=== PATIENT | male | born 1970 | race African-American/Black ===

== ENCOUNTER 2022-01-30 13:50 | Observation (INO) | payer SELFPAY ==
--- OUTSIDE RECORDS SUMMARY | 2022-01-30 13:56 | XMS REPORT | Continuity of Care Document ---
:1970 Author Organization [facility] t Address [address] [place] [address] Care Team Providers Name Role Phone Perez Zavaleta Primary Care Physician [phone] ALEX GARCIA Attending Clinician Unavailable SAAD HOU Admitting Clinician Unavailable Problems This patient has no known problems. Allergies, Adverse Reactions, Alerts This patient has no known allergies or adverse reactions. Medications Ordered Filled Start Stop Current Ordering Indication Dosage Frequency Signature Comments Components Source Medication Medication Date Date Medication? Clinician (SIG) Name Name TAKE 1 2021-0 No 100 TABLET 8-04 DAILY. 00:00: 00 TAKE 1 2021-0 No 10 TABLET 8-04 DAILY 1 00:00: HOUR BEFORE 00 NEEDED TAKE 1 2021-0 No 1000 TABLET 8-04 EVERY 12 00:00: HOURS 00 DAILY. TAKE 1 2021-0 No 10 TABLET 8-04 DAILY. 00:00: 00 folic acid 2-0 No 1mg 1 mg tablet 7-20 00:00: 00 hydrochloro 2-0 No 1mg thiazide 7-20 12.5 mg 00:00: tablet 00 losartan 2022-0 No 1mg 100 mg 7-20 tablet 00:00: 00 amlodipine 2022-0 No 1mg 10 mg 7-20 tablet 00:00: 00 metformin 2-0 No 1mg 1,000 mg 7-20 tablet 00:00: 00 glimepiride 2-0 No 1mg 4 mg tablet 7-20 00:00: 00 metoprolol 2-0 No 1mg tartrate 50 7-20 mg tablet 00:00: 00 sulfamethox 2-0 No 1mg azole 800 7-20 mg-trimetho 00:00: prim 160 mg 00 tablet levothyroxi 2022-0 No 1mcg ne 150 mcg 7-20 tablet 00:00: 00 amlodipine 2022-0 No 1mg 10 mg 3-01 tablet 00:00: 00 losartan 2022-0 No 1mg 100 mg 3-01 tablet 00:00: 00 hydrochloro 2022-0 No 1mg thiazide 3-01 12.5 mg 00:00: tablet 00 folic acid 2022-0 No 1mg 1 mg tablet 3- 00:00: 00 metoprolol 2022-0 No 1mg tartrate 50 3-01 mg tablet 00:00: 00 glimepiride 2022-0 No 1mg 4 mg tablet 3- 00:00: 00 metformin 2022-0 No 1mg 1,000 mg 3-01 tablet 00:00: 00 levothyroxi 2022-0 No 1mcg ne 150 mcg 3-01 tablet 00:00: 00 amlodipine 2022-0 No 1mg 10 mg 3-01 tablet 00:00: 00 losartan 2022-0 No 1mg 100 mg 3-01 tablet 00:00: 00 hydrochloro 2022-0 No 1mg thiazide 3-01 12.5 mg 00:00: tablet 00 folic acid 2022-0 No 1mg 1 mg tablet 3- 00:00: 00 metoprolol 2022-0 No 1mg tartrate 50 3-01 mg tablet 00:00: 00 glimepiride 2022-0 No 1mg 4 mg tablet 3- 00:00: 00 metformin 2022-0 No 1mg 1,000 mg 3-01 tablet 00:00: 00 levothyroxi 2022-0 No 1mcg ne 150 mcg 3-01 tablet 00:00: 00 Dose 2019-1 No Unknown 2-01 00:00: 00 Dose 2019-1 No Unknown 2-01 00:00: 00 Dose 2019-1 No Unknown 2-01 00:00: 00 Dose 2019-1 No Unknown 2-01 00:00: 00 Dose 2019- No Unknown 2-01 00:00: 00 Dose 2019- No Unknown 2-01 00:00: 00 Dose 2019- No Unknown 2-01 00:00: 00 Dose 2019- No Unknown 2-01 00:00: 00 Dose 2019- No Unknown 2-01 00:00: 00 Dose 2020-1 No Unknown 2-01 00:00: 00 Dose 2020-1 No Unknown 2- 00:00: 00 Dose 2020-1 No Unknown 2- 00:00: 00 Dose 2019-1 No Unknown 2- 00:00: 00 Dose 2020-1 No Unknown 2- 00:00: 00 Dose 2020-1 No Unknown 2- 00:00: 00 Dose 2020-1 No Unknown 2- 00:00: 00 losartan 2019-1 No 1mg 100 mg 0-01 tablet 00:00: 00 hydrochloro 2019-1 No 1mg thiazide 0-01 12.5 mg 00:00: tablet 00 amlodipine 2019-1 No 1mg 5 mg tablet 0-01 00:00: 00 folic acid 2019-1 No 1mg 1 mg tablet 0-01 00:00: 00 glimepiride 2019-1 No 1mg 4 mg tablet 0- 00:00: 00 metoprolol 2019-1 No 1mg tartrate 50 0-01 mg tablet 00:00: 00 metformin 2019-1 No 1mg 1,000 mg 0-01 tablet 00:00: 00 levothyroxi 2019-1 No 1mcg ne 150 mcg 0-01 tablet 00:00: 00 losartan 2019-1 No 1mg 100 mg 0-01 tablet 00:00: 00 hydrochloro 2019-1 No 1mg thiazide 0-01 12.5 mg 00:00: tablet 00 amlodipine 2019-1 No 1mg 5 mg tablet 0- 00:00: 00 folic acid 2019-1 No 1mg 1 mg tablet 0- 00:00: 00 glimepiride 2019-1 No 1mg 4 mg tablet 0- 00:00: 00 metoprolol 2019-1 No 1mg tartrate 50 0-01 mg tablet 00:00: 00 metformin 2019-1 No 1mg 1,000 mg 0-01 tablet 00:00: 00 levothyroxi 2020-1 No 1mcg ne 150 mcg 0-01 tablet 00:00: 00 glimepiride 2020-0 No 1mg 4 mg tablet 11-30 00:00: 00 levothyroxi 2020-0 No 1mcg ne 150 mcg 6-25 tablet 00:00: 00 glimepiride 2020-0 No 1mg 4 mg tablet 11-30 00:00: 00 levothyroxi 2020-0 No 1mcg ne 150 mcg 6-25 tablet 00:00: 00 levothyroxi 2020-0 No 1mcg ne 125 mcg 6-23 tablet 00:00: 00 amlodipine 2020-0 No 1mg 5 mg tablet 11-28 00:00: 00 folic acid 2020-0 No 1mg 1 mg tablet 11-28 00:00: 00 losartan 2020-0 No 1mg 100 mg 6-23 tablet 00:00: 00 hydrochloro 2020-0 No 1mg thiazide 6-23 12.5 mg 00:00: tablet 00 amlodipine 2020-0 No 1mg 5 mg tablet 11-28 00:00: 00 folic acid 2020-0 No 1mg 1 mg tablet 11-28 00:00: 00 losartan 2020-0 No 1mg 100 mg 6-23 tablet 00:00: 00 hydrochloro 2020-0 No 1mg thiazide 6-23 12.5 mg 00:00: tablet 00 metoprolol 2020-0 No 1mg tartrate 50 6-23 mg tablet 00:00: 00 glimepiride 2020-0 No 1mg 1 mg tablet 11-28 00:00: 00 metformin 2020-0 No 1mg 1,000 mg 6-23 tablet 00:00: 00 glimepiride 2020-0 No 1mg 1 mg tablet 11-28 00:00: 00 metformin 2020-0 No 1mg 1,000 mg -23 tablet 00:00: 00 metoprolol 2020-0 No 1mg tartrate 50 6-23 mg tablet 00:00: 00 levothyroxi 2020-0 No 1mcg ne 125 mcg 6-23 tablet 00:00: 00 levothyroxi 2020-0 No 1mcg ne 125 mcg 6-23 tablet 00:00: 00 amlodipine 2020-0 No 1mg 5 mg tablet 11-28 00:00: 00 folic acid 2020-0 No 1mg 1 mg tablet 11-28 00:00: 00 losartan 2020-0 No 1mg 100 mg 6-23 tablet 00:00: 00 hydrochloro 2020-0 No 1mg thiazide 6-23 12.5 mg 00:00: tablet 00 amlodipine 2020-0 No 1mg 5 mg tablet 11-28 00:00: 00 folic acid 2020-0 No 1mg 1 mg tablet 11-28 00:00: 00 losartan 2020-0 No 1mg 100 mg 6-23 tablet 00:00: 00 hydrochloro 2020-0 No 1mg thiazide 6-23 12.5 mg 00:00: tablet 00 metoprolol 2020-0 No 1mg tartrate 50 6-23 mg tablet 00:00: 00 glimepiride 2020-0 No 1mg 1 mg tablet 6-23 00:00: 00 metformin 2020-0 No 1mg 1,000 mg 6-23 tablet 00:00: 00 glimepiride 2020-0 No 1mg 1 mg tablet 6-23 00:00: 00 metformin 2020-0 No 1mg 1,000 mg 6-23 tablet 00:00: 00 metoprolol 2020-0 No 1mg tartrate 50 6-23 mg tablet 00:00: 00 levothyroxi 2020-0 No 1mcg ne 125 mcg 6-23 tablet 00:00: 00 amlodipine 2020-0 No 1mg 5 mg tablet 2-18 00:00: 00 folic acid 2020-0 No 1mg 1 mg tablet 2-18 00:00: 00 losartan 2020-0 No 1mg 100 mg 2-18 tablet 00:00: 00 hydrochloro 2020-0 No 1mg thiazide 2-18 12.5 mg 00:00: tablet 00 pioglitazon 2020-0 No 1mg e 30 mg 2-18 tablet 00:00: 00 sulfamethox 2020-0 No 1mg azole 800 2-18 mg-trimetho 00:00: prim 160 mg 00 tablet metoprolol 2020-0 No 1mg tartrate 50 2-18 mg tablet 00:00: 00 metformin 2020-0 No 2mg ER 500 mg 2-18 tablet,exte 00:00: nded 00 release 24 hr glimepiride 2020-0 No 1mg 1 mg tablet 2-18 00:00: 00 levothyroxi 2020-0 No 1mcg ne 125 mcg 2-18 tablet 00:00: 00 amlodipine 2020-0 No 1mg 5 mg tablet 2-18 00:00: 00 folic acid 2020-0 No 1mg 1 mg tablet 2-18 00:00: 00 losartan 2020-0 No 1mg 100 mg 2-18 tablet 00:00: 00 hydrochloro 2020-0 No 1mg thiazide 2-18 12.5 mg 00:00: tablet 00 pioglitazon 2020-0 No 1mg e 30 mg 2-18 tablet 00:00: 00 sulfamethox 2020-0 No 1mg azole 800 2-18 mg-trimetho 00:00: prim 160 mg 00 tablet metoprolol 2020-0 No 1mg tartrate 50 2-18 mg tablet 00:00: 00 metformin 2020-0 No 2mg ER 500 mg 2-18 tablet,exte 00:00: nded 00 release 24 hr glimepiride 2019-0 No 1mg 1 mg tablet 2-18 00:00: 00 levothyroxi 2019-0 No 1mcg ne 125 mcg 2-18 tablet 00:00: 00 hydrochloro 2018-1 No 1mg thiazide 2-17 12.5 mg 00:00: tablet 00 pioglitazon 2018-1 No 1mg e 30 mg 2-17 tablet 00:00: 00 folic acid 2018-1 No 1mg 1 mg tablet 2-17 00:00: 00 losartan 2018-1 No 1mg 100 mg 2-17 tablet 00:00: 00 amlodipine 2018-1 No 1mg 5 mg tablet 2-17 00:00: 00 glimepiride 2018-1 No 1mg 1 mg tablet 2-17 00:00: 00 metformin 2018-1 No 2mg ER 500 mg 2-17 tablet,exte 00:00: nded 00 release 24 hr metoprolol 2018-1 No 1mg tartrate 50 2-17 mg tablet 00:00: 00 levothyroxi 2018-1 No 1mcg ne 125 mcg 2-17 tablet 00:00: 00 hydrochloro 2018-1 No 1mg thiazide 2-17 12.5 mg 00:00: tablet 00 pioglitazon 2018-1 No 1mg e 30 mg 2-17 tablet 00:00: 00 folic acid 2018-1 No 1mg 1 mg tablet 2-17 00:00: 00 losartan 2018-1 No 1mg 100 mg 2-17 tablet 00:00: 00 amlodipine 2018-1 No 1mg 5 mg tablet 2-17 00:00: 00 glimepiride 2018-1 No 1mg 1 mg tablet 2-17 00:00: 00 metformin 2018-1 No 2mg ER 500 mg 2-17 tablet,exte 00:00: nded 00 release 24 hr metoprolol 2018-1 No 1mg tartrate 50 2-17 mg tablet 00:00: 00 levothyroxi 2018-06 No 1mcg ne 125 mcg 2-17 tablet 00:00: 00 amlodipine 2018- No 1mg 5 mg tablet 029 00:00: 00 folic acid 2018- No 1mg 1 mg tablet 0 00:00: 00 hydrochloro 2018-1 No 1mg thiazide 0-29 12.5 mg 00:00: tablet 00 metoprolol 2018-06 No 1mg tartrate 50 0-29 mg tablet 00:00: 00 metformin 2018- No 2mg ER 500 mg 0-29 tablet,exte 00:00: nded 00 release 24 hr glimepiride 2018- No 1mg 1 mg tablet 0 00:00: 00 levothyroxi 2018-06 No 1mcg ne 125 mcg 0-29 tablet 00:00: 00 amlodipine 2018- No 1mg 5 mg tablet 0 00:00: 00 folic acid 2018- No 1mg 1 mg tablet 0 00:00: 00 hydrochloro 2018- No 1mg thiazide 0-29 12.5 mg 00:00: tablet 00 metoprolol 2018-06 No 1mg tartrate 50 0-29 mg tablet 00:00: 00 metformin 2018- No 2mg ER 500 mg 0-29 tablet,exte 00:00: nded 00 release 24 hr glimepiride 2018- No 1mg 1 mg tablet 0 00:00: 00 levothyroxi 2018- No 1mcg ne 125 mcg 0-29 tablet 00:00: 00 hydrochloro 2019-0 No 1mg thiazide 8-07 12.5 mg 00:00: tablet 00 folic acid 2018-0 No 1mg 1 mg tablet 8 00:00: 00 glimepiride 2019-0 No 1mg 1 mg tablet 8 00:00: 00 metformin 2019-0 No 2mg ER 500 mg 8 tablet,exte 00:00: nded 00 release 24 hr metoprolol 2019-0 No 1mg tartrate 50 8-07 mg tablet 00:00: 00 Levitra 10 2019-0 No mg mg tablet 8 00:00: 00 levothyroxi 2019-0 No 1mcg ne 125 mcg 8-07 tablet 00:00: 00 hydrochloro 2019-0 No 1mg thiazide 8-07 12.5 mg 00:00: tablet 00 folic acid 2019-0 No 1mg 1 mg tablet 8 00:00: 00 glimepiride 2019-0 No 1mg 1 mg tablet 8 00:00: 00 metformin 2019-0 No 2mg ER 500 mg 8- tablet,exte 00:00: nded 00 release 24 hr metoprolol 2019-0 No 1mg tartrate 50 8-07 mg tablet 00:00: 00 Levitra 10 2019-0 No mg mg tablet 8 00:00: 00 levothyroxi 2019-0 No 1mcg ne 125 mcg 8-07 tablet 00:00: 00 hydrochloro 2019-0 No 1mg thiazide 7-05 12.5 mg 00:00: tablet 00 folic acid 2019-0 No 1mg 1 mg tablet 7 00:00: 00 metoprolol 2019-0 No 1mg tartrate 50 7-05 mg tablet 00:00: 00 glimepiride 2019-0 No 1mg 1 mg tablet 7 00:00: 00 metformin 2019-0 No 2mg ER 500 mg 7-05 tablet,exte 00:00: nded 00 release 24 hr levothyroxi 2019-0 No 1mcg ne 125 mcg 7-05 tablet 00:00: 00 hydrochloro 2019-0 No 1mg thiazide 7-05 12.5 mg 00:00: tablet 00 folic acid 2019-0 No 1mg 1 mg tablet 7 00:00: 00 metoprolol 2019-0 No 1mg tartrate 50 7-05 mg tablet 00:00: 00 glimepiride 2019-0 No 1mg 1 mg tablet 7 00:00: 00 metformin 2019-0 No 2mg ER 500 mg 7-05 tablet,exte 00:00: nded 00 release 24 hr levothyroxi 2019-0 No 1mcg ne 125 mcg 7-05 tablet 00:00: 00 hydrochloro 2019-0 No 1mg thiazide 7-03 12.5 mg 00:00: tablet 00 folic acid 2019-0 No 1mg 1 mg tablet 7 00:00: 00 metoprolol 2019-0 No 1mg tartrate 50 7-03 mg tablet 00:00: 00 glimepiride 2019-0 No 1mg 1 mg tablet 7 00:00: 00 metformin 2019-0 No 2mg ER 500 mg 7- tablet,exte 00:00: nded 00 release 24 hr Levitra 10 2019-0 No mg mg tablet 12-08 00:00: 00 levothyroxi 2019-0 No 1mcg ne 125 mcg 7- tablet 00:00: 00 hydrochloro 2019-0 No 1mg thiazide 7-03 12.5 mg 00:00: tablet 00 folic acid 2019-0 No 1mg 1 mg tablet 12-08 00:00: 00 metoprolol 2019-0 No 1mg tartrate 50 7-03 mg tablet 00:00: 00 glimepiride 2019-0 No 1mg 1 mg tablet 12-08 00:00: 00 metformin 2019-0 No 2mg ER 500 mg 12-08 tablet,exte 00:00: nded 00 release 24 hr Levitra 10 2019-0 No mg mg tablet 12-08 00:00: 00 levothyroxi 2019-0 No 1mcg ne 125 mcg 7- tablet 00:00: 00 hydrochloro 2019-0 No 1mg thiazide 5-22 12.5 mg 00:00: tablet 00 folic acid 2019-0 No 1mg 1 mg tablet 10-27 00:00: 00 glimepiride 2019-0 No 1mg 1 mg tablet 10-27 00:00: 00 metoprolol 2019-0 No 1mg tartrate 50 5-22 mg tablet 00:00: 00 levothyroxi 2019-0 No 1mcg ne 125 mcg 5-22 tablet 00:00: 00 hydrochloro 2019-0 No 1mg thiazide 5-22 12.5 mg 00:00: tablet 00 folic acid 2019-0 No 1mg 1 mg tablet 10-27 00:00: 00 glimepiride 2019-0 No 1mg 1 mg tablet 10-27 00:00: 00 metoprolol 2019-0 No 1mg tartrate 50 5-22 mg tablet 00:00: 00 levothyroxi 2019-0 No 1mcg ne 125 mcg 5-22 tablet 00:00: 00 hydrochloro 2019-0 No 1mg thiazide 5-08 12.5 mg 00:00: tablet 00 folic acid 2019-0 No 1mg 1 mg tablet 508 00:00: 00 hydrochloro 2019-0 No 1mg thiazide 5-08 12.5 mg 00:00: tablet 00 folic acid 2019-0 No 1mg 1 mg tablet 5-08 00:00: 00 metformin 2019-0 No 2mg ER 500 mg 5-08 tablet,exte 00:00: nded 00 release 24 hr glimepiride 2019-0 No 1mg 1 mg tablet 5-08 00:00: 00 metoprolol 2019-0 No 1mg tartrate 50 5-08 mg tablet 00:00: 00 levothyroxi 2019-0 No 1mcg ne 125 mcg 5-08 tablet 00:00: 00 metformin 2019-0 No 2mg ER 500 mg 5-08 tablet,exte 00:00: nded 00 release 24 hr glimepiride 2019-0 No 1mg 1 mg tablet 508 00:00: 00 metoprolol 2019-0 No 1mg tartrate 50 5-08 mg tablet 00:00: 00 levothyroxi 2019-0 No 1mcg ne 125 mcg 5-08 tablet 00:00: 00 levothyroxi 2019-0 No 1mcg ne 125 mcg 3-28 tablet 00:00: 00 levothyroxi 2019-0 No 1mcg ne 125 mcg 3-28 tablet 00:00: 00 hydrochloro 2019-0 No 1mg thiazide 3-27 12.5 mg 00:00: tablet 00 folic acid 2019-0 No 1mg 1 mg tablet 3-27 00:00: 00 metformin 2019-0 No 2mg ER 500 mg 3-27 tablet,exte 00:00: nded 00 release 24 hr glimepiride 2019-0 No 1mg 1 mg tablet 3-27 00:00: 00 metoprolol 2019-0 No 1mg tartrate 50 3-27 mg tablet 00:00: 00 hydrochloro 2019-0 No 1mg thiazide 3-27 12.5 mg 00:00: tablet 00 folic acid 2019-0 No 1mg 1 mg tablet 3-27 00:00: 00 metformin 2019-0 No 2mg ER 500 mg 3-27 tablet,exte 00:00: nded 00 release 24 hr glimepiride 2019-0 No 1mg 1 mg tablet 3-27 00:00: 00 metoprolol 2019-0 No 1mg tartrate 50 3-27 mg tablet 00:00: 00 metformin 2019-0 No 2mg ER 500 mg 1-16 tablet,exte 00:00: nded 00 release 24 hr metformin 2019-0 No 2mg ER 500 mg 1-16 tablet,exte 00:00: nded 00 release 24 hr metformin 2019-0 No 3mg ER 500 mg 1-03 tablet,exte 00:00: nded 00 release 24 hr metformin 2019-0 No 3mg ER 500 mg 1-03 tablet,exte 00:00: nded 00 release 24 hr hydrochloro 2018-1 No 5mg thiazide 25 2-27 mg tablet 00:00: 00 folic acid 2018-1 No 1mg 1 mg tablet 2-27 00:00: 00 metoprolol 2018-1 No 1mg tartrate 50 2-27 mg tablet 00:00: 00 metformin 2018-1 No 1mg ER 500 mg 2-27 tablet,exte 00:00: nded 00 release 24 hr hydrochloro 2018-1 No 5mg thiazide 25 2-27 mg tablet 00:00: 00 folic acid 2018-1 No 1mg 1 mg tablet 2-27 00:00: 00 metoprolol 2018-1 No 1mg tartrate 50 2-27 mg tablet 00:00: 00 metformin 2018-1 No 1mg ER 500 mg 2-27 tablet,exte 00:00: nded 00 release 24 hr hydrochloro 2018-0 No 5mg thiazide 25 7-18 mg tablet 00:00: 00 hydrochloro 2018-0 No 5mg thiazide 25 7-18 mg tablet 00:00: 00 folic acid 2018-0 No 1mg 1 mg tablet 7-16 00:00: 00 metoprolol 2018-0 No 1mg tartrate 50 7-16 mg tablet 00:00: 00 metformin 2018-0 No 1mg ER 500 mg 7-16 tablet,exte 00:00: nded 00 release 24 hr folic acid 2018-0 No 1mg 1 mg tablet 7-16 00:00: 00 metoprolol 2018-0 No 1mg tartrate 50 7-16 mg tablet 00:00: 00 metformin 2018-0 No 1mg ER 500 mg 7-16 tablet,exte 00:00: nded 00 release 24 hr amlodipine 2018-0 No 1mg 10 mg 7-13 tablet 00:00: 00 amlodipine 2018-0 No 1mg 10 mg 7-13 tablet 00:00: 00 metformin 2018-0 No 1mg ER 500 mg 6-11 tablet,exte 00:00: nded 00 release 24 hr folic acid 2018-0 No 1mg 1 mg tablet 6-11 00:00: 00 lisinopril 2018-0 No 1mg 5 mg tablet 6-11 00:00: 00 metoprolol 2018-0 No 1mg tartrate 50 6-11 mg tablet 00:00: 00 metformin 2018-0 No 1mg ER 500 mg 6-11 tablet,exte 00:00: nded 00 release 24 hr folic acid 2018-0 No 1mg 1 mg tablet 6-11 00:00: 00 lisinopril 2018-0 No 1mg 5 mg tablet 6-11 00:00: 00 metoprolol 2018-0 No 1mg tartrate 50 6-11 mg tablet 00:00: 00 metformin 2018-0 No 1mg ER 500 mg 5-10 tablet,exte 00:00: nded 00 release 24 hr metformin 2018-0 No 1mg ER 500 mg 5-10 tablet,exte 00:00: nded 00 release 24 hr lisinopril 2018-0 No 1mg 5 mg tablet 5-03 00:00: 00 folic acid 2018-0 No 1mg 1 mg tablet 5-03 00:00: 00 metoprolol 2018-0 No 1mg tartrate 50 5-03 mg tablet 00:00: 00 lisinopril 2018-0 No 1mg 5 mg tablet 5-03 00:00: 00 folic acid 2018-0 No 1mg 1 mg tablet 5-03 00:00: 00 metoprolol 2018-0 No 1mg tartrate 50 5-03 mg tablet 00:00: 00 Vital Signs Vital Name Observation Time Observation Value Comments Source BP Systolic 2022-01-08 10:51:00 155 mm[Hg] BP Diastolic 2022-01-08 10:51:00 90 mm[Hg] Weight Measured 2022-01-08 10:51:00 205.00 pounds Height Measured 2022-01-08 10:51:00 71.00 inches Body Temperature 2022-01-08 10:51:00 98.20 degrees Heart Rate 2022-01-08 10:51:00 78.00 /min Respiratory Rate 2022-01-08 10:51:00 17.00 /min BP Systolic 2021-12-25 11:03:00 200 mm[Hg] BP Diastolic 2021-12-25 11:03:00 117 mm[Hg] Weight Measured 2021-12-25 11:03:00 205.20 pounds Height Measured 2021-12-25 11:03:00 71.00 inches Body Temperature 2021-12-25 11:03:00 98.40 degrees Heart Rate 2021-12-25 11:03:00 95.00 /min Respiratory Rate 2021-12-25 11:03:00 17.00 /min BP Systolic 2021-08-21 09:51:00 149 mm[Hg] BP Diastolic 2021-08-21 09:51:00 91 mm[Hg] Weight Measured 2021-08-21 09:51:00 218.80 pounds Height Measured 2021-08-21 09:51:00 71.00 inches Body Temperature 2021-08-21 09:51:00 98.30 degrees Heart Rate 2021-08-21 09:51:00 75.00 /min Respiratory Rate 2021-08-21 09:51:00 16.00 /min BP Systolic 2021-08-06 11:29:00 224 mm[Hg] BP Diastolic 2021-08-06 11:29:00 133 mm[Hg] Weight Measured 2021-08-06 11:29:00 219.60 pounds Height Measured 2021-08-06 11:29:00 71.00 inches Body Temperature 2021-08-06 11:29:00 98.80 degrees Heart Rate 2021-08-06 11:29:00 109.00 /min Respiratory Rate 2021-08-06 11:29:00 16.00 /min BP Systolic 2020-05-08 08:14:00 151 mm[Hg] BP Diastolic 2020-05-08 08:14:00 96 mm[Hg] Weight Measured 2020-05-08 08:14:00 254.40 pounds Height Measured 2020-05-08 08:14:00 71.00 inches Body Temperature 2020-05-08 08:14:00 99.00 degrees Heart Rate 2020-05-08 08:14:00 80.00 /min Respiratory Rate 2020-05-08 08:14:00 16.00 /min BP Systolic 2019-11-29 08:17:00 172 mm[Hg] BP Diastolic 2019-11-29 08:17:00 113 mm[Hg] Weight Measured 2019-11-29 08:17:00 257.60 pounds Height Measured 2019-11-29 08:17:00 71.00 inches Body Temperature 2019-11-29 08:17:00 97.80 degrees Heart Rate 2019-11-29 08:17:00 64.00 /min Respiratory Rate 2019-11-29 08:17:00 BP Systolic 2019-07-26 11:14:00 BP Diastolic 2019-07-26 11:14:00 Weight Measured 2019-07-26 11:14:00 Height Measured 2019-07-26 11:14:00 Body Temperature 2019-07-26 11:14:00 Heart Rate 2019-07-26 11:14:00 63.00 /min Respiratory Rate 2019-07-26 11:14:00 BP Systolic 2019-07-26 11:02:00 158 mm[Hg] BP Diastolic 2019-07-26 11:02:00 103 mm[Hg] Weight Measured 2019-07-26 11:02:00 250.60 pounds Height Measured 2019-07-26 11:02:00 71.00 inches Body Temperature 2019-07-26 11:02:00 98.10 degrees Heart Rate 2019-07-26 11:02:00 63.00 /min Respiratory Rate 2019-07-26 11:02:00 16.00 /min BP Systolic 2019-04-05 10:15:00 144 mm[Hg] BP Diastolic 2019-04-05 10:15:00 91 mm[Hg] Weight Measured 2019-04-05 10:15:00 251.80 pounds Height Measured 2019-04-05 10:15:00 71.00 inches Body Temperature 2019-04-05 10:15:00 98.50 degrees Heart Rate 2019-04-05 10:15:00 65.00 /min Respiratory Rate 2019-04-05 10:15:00 16.00 /min BP Systolic 2019-01-12 09:01:00 146 mm[Hg] BP Diastolic 2019-01-12 09:01:00 91 mm[Hg] Weight Measured 2019-01-12 09:01:00 245.60 pounds Height Measured 2019-01-12 09:01:00 71.00 inches Body Temperature 2019-01-12 09:01:00 98.20 degrees Heart Rate 2019-01-12 09:01:00 70.00 /min Respiratory Rate 2019-01-12 09:01:00 BP Systolic 2018-12-08 10:02:00 130 mm[Hg] BP Diastolic 2018-12-08 10:02:00 90 mm[Hg] Weight Measured 2018-12-08 10:02:00 240.40 pounds Height Measured 2018-12-08 10:02:00 71.00 inches Body Temperature 2018-12-08 10:02:00 98.20 degrees Heart Rate 2018-12-08 10:02:00 69.00 /min Respiratory Rate 2018-12-08 10:02:00 18.00 /min Procedures This patient has no known procedures. Plan of Care Planned Activity Planned Date Details Comments Source Goal Plan of Care Note [code = 43381-9] Goal Plan of Care Note [code = 03728-6] Goal Plan of Care Note [code = 39283-6] Goal Plan of Care Note [code = 47548-0] Goal Plan of Care Note [code = 70573-9] Goal Plan of Care Note [code = 42517-8] Goal Plan of Care Note [code = 04550-6] Goal Plan of Care Note [code = 90301-3] Goal Plan of Care Note [code = 53351-1] Goal Plan of Care Note [code = 30323-3] Goal Plan of Care Note [code = 68848-4] Goal Plan of Care Note [code = 54475-9] Goal Plan of Care Note [code = 21507-6] Goal Plan of Care Note [code = 30010-7] Goal Plan of Care Note [code = 31037-4] Goal Plan of Care Note [code = 90958-9] Goal Plan of Care Note [code = 46488-5] Goal Plan of Care Note [code = 82170-5] Goal Plan of Care Note [code = 39575-9] Goal Plan of Care Note [code = 62523-5] Goal Plan of Care Note [code = 69470-3] Goal Plan of Care Note [code = 81322-4] Goal Plan of Care Note [code = 60908-6] Goal Plan of Care Note [code = 90384-3] Goal Plan of Care Note [code = 44154-1] Goal Plan of Care Note [code = 56901-2] Goal Plan of Care Note [code = 49788-6] Goal Plan of Care Note [code = 94687-7] Goal Plan of Care Note [code = 59297-5] Goal Plan of Care Note [code = 51365-3] Goal Plan of Care Note [code = 16445-9] Goal Plan of Care Note [code = 19789-6] Goal Plan of Care Note [code = 95447-8] Goal Plan of Care Note [code = 10125-6] Goal Plan of Care Note [code = 44349-4] Goal Plan of Care Note [code = 63849-8] Goal Plan of Care Note [code = 24452-4] Goal Plan of Care Note [code = 68526-2] Encounters Start End Encounter Admission Attending Care Care Encounter Source Date/Time Date/Time Type Type Clinicians Facility Department ID 2022-01-08 2022-01-08 Outpatient [id number] 00:00:00 00:00:00 Visit [id number] 2021-12-25 2021-12-25 Outpatient [id number] 00:00:00 00:00:00 Visit [id number] Results Test Description Test Time Test Comments Results Result Comments Source TSH, THIRD GENERATION 2022-01-09 06:08:37 Test Item Value Reference Range Interpretation Comme nts TSH, THIRD GENERATION (test 1.310 UIU/ML 0.400-4.100 UNLESS OTHERWISE INDICATED, code = 2821) ALL TESTING PER [facility], [facility]. [address] [place] [address] [id number] GAS ENGINEER: Shante BEAR [id number] [facility] [place] [id number] COMPREHENSIVE METABOLIC [id number] 04:59:38 Test Item Value Reference Range Interpretation Comments GLUCOSE (test code = 178 MG/DL 70-99 H 2216) BUN (test code = 7 MG/DL 6-20 2207) CREATININE (test 0.71 MG/DL 0.80-1.40 L code = 221) eGFR (2020 CKD-EPI) 110 >60 (test code = 65894) ML/MIN/1.73 CALC BUN/CREAT (test 10 RATIO 6-28 code = 2235) SODIUM (test code = 128 MEQ/L 133-146 L 2230) POTASSIUM (test code 4.7 MEQ/L 3.5-5.4 = 2227) CHLORIDE (test code 87 MEQ/L 95-107 L RESULTS RECHECKED = 2214) AND VERIFIED CARBON DIOXIDE (test 27 MEQ/L 19-31 code = 2205) CALCIUM (test code = 9.7 MG/DL 8.5-10.5 2208) PROTEIN, TOTAL (test 8.6 G/DL 6.1-8.3 H code = 2228) ALBUMIN (test code = 4.4 G/DL 3.5-5.2 2200) CALC GLOBULIN (test 4.2 G/DL 1.9-3.7 H code = 224) CALC A/G RATIO (test 1.0 RATIO 1.0-2.6 code = 223) BILIRUBIN, TOTAL 0.4 MG/DL See_Comment [Automated message] (test code = 2206) The syste m which generated this result transmit tejinder reference range : <=1.2. The refe rence range was not u sed to interpret th is result as normal/abnormal . ALKALINE PHOSPHATASE 106 U/L 40-121 (test code = 220) AST (test code = 33 U/L 9-50 2217) ALT (test code = 18 U/L 5-50 2218) LIPID [id number] 04:59:38 Test Item Value Reference Range Interpretation Comments CHOLESTEROL (test 162 MG/DL <200 code = 2210) TRIGLYCERIDES (test 73 MG/DL <150 code = 2232) HDL CHOLESTEROL (test 60 MG/DL >39 code = 2220) CALC LDL CHOL (test 86 MG/DL <100 NOTE: C ALCULATED LDL code = 2237) IS BASED ON YO-PACHECO METHOD WHICHINCLUDES ADJUSTABLE TRIGLYCERIDE:VL DL CHOLESTEROL RAT IO.THIS FACTOR VARIES B Y MEASURED TRIGLY CERIDE AND NON-HDLCHOL ESTEROL CONCENTRATIONS WITH INCREASED CALCU LATED LDL SEENIN HIGH ER TRIGLYCERIDE OR LOWER NON-HDL SPECIME NS. FOR MOREINFORMATION , SEE CLIENT ANNOUNCE MENT AT [email or web address] [email or web address] LDL/HDL 1.43 RATIO <3.55 (test code = 2238) HEMOGLOBIN [id number] 04:52:38 Test Item Value Reference Range Interpretation Comments HEMOGLOBIN A1c (test 8.4 % 4.2-5.6 H AMERIC AN DIABETES code = 36366) ASSOCIATION [employer] FOR HGB A1C: PREDIABETES/INC REASED RISK . . . . . . . 5.7 -6.4% DIAGNOSIS OF DI ABETES . . . . . . . . . >=6 .5% WITH CONFIRMATION OR APPROPRIATE SYMPTOMS NOTE: ASSAY MAY BE AFFECTED BY HEMOGLOBINOPATH IES (SICKLE CELL ANEMIA, S- C DISEASE, OTHERS) OR ANNELISE FICIALLY LOWERED BY DECR EASED RED CELL SURVIVAL ( HEMOLYTIC ANEMIAS, BLOOD LOSS, ETC.). CONSIDER ALTERN ATE TESTING OR LABORATORY C ONSULTATION. HEMOGLOBIN A1c [ADDED]2022-01-09 00:00:00 Test Item Value Reference Range Interpretation Comments HEMOGLOBIN A1c (test code = 94151) 8.4 % HEMOGLOBIN A1c [ADDED]2022-01-09 00:00:00 Test Item Value Reference Range Interpretation Comments HEMOGLOBIN A1c (test code = 38495) 8.4 % COMPREHENSIVE METABOLIC PANEL [ADDED]2022-01-09 00:00:00 Test Item Value Reference Range Interpretation Comments GLUCOSE (test code = 2217) 178 MG/DL BUN (test code = 2208) 7 MG/DL CREATININE (test code = 2214) 0.71 MG/DL eGFR (2020 CKD-EPI) (test 110 ML/MIN/1.73 code = 73653) CALC BUN/CREAT (test code = 10 RATIO 2235) SODIUM (test code = 2231) 128 MEQ/L POTASSIUM (test code = 2228) 4.7 MEQ/L CHLORIDE (test code = 2215) 87 MEQ/L CARBON DIOXIDE (test code = 27 MEQ/L 2205) CALCIUM (test code = 2209) 9.7 MG/DL PROTEIN, TOTAL (test code = 8.6 G/DL 2228) ALBUMIN (test code = 220) 4.4 G/DL CALC GLOBULIN (test code = 4.2 G/DL 2239) CALC A/G RATIO (test code = 1.0 RATIO 2233) BILIRUBIN, TOTAL (test code = 0.4 MG/DL 2206) ALKALINE PHOSPHATASE (test 106 U/L code = 2204) AST (test code = 2218) 33 U/L ALT (test code = 2219) 18 U/L LIPID PANEL [ADDED]2022-01-09 00:00:00 Test Item Value Reference Range Interpretation Comments CHOLESTEROL (test code = 2210) 162 MG/DL TRIGLYCERIDES (test code = 2232) 73 MG/DL HDL CHOLESTEROL (test code = 2220) 60 MG/DL CALC LDL CHOL (test code = 2237) 86 MG/DL RISK RATIO LDL/HDL (test code = 1.43 RATIO 2238) TSH, THIRD GENERATION [ADDED]2022-01-09 00:00:00 Test Item Value Reference Range Interpretation Comments TSH, THIRD GENERATION (test code 1.310 UIU/ML = 2821) TSH, THIRD GENERATION [ADDED]2022-01-09 00:00:00 Test Item Value Reference Range Interpretation Comments TSH, THIRD GENERATION (test code 1.310 UIU/ML = 2821) COMPREHENSIVE METABOLIC [id number] 00:00:00 Test Item Value Reference Range Interpretation Comments GLUCOSE (test code = 2217) 118 MG/DL BUN (test code = 2208) 10 MG/DL CREATININE (test code = 2214) 0.91 MG/DL eGFR AMER. (test code 113 ML/MIN/1.73 = 43490) eGFR NON- AMER. (test 98 ML/MIN/1.73 code = 68137) CALC BUN/CREAT (test code = 11 RATIO 2234) SODIUM (test code = 2231) 135 MEQ/L POTASSIUM (test code = 2228) 4.0 MEQ/L CHLORIDE (test code = 2215) 96 MEQ/L CARBON DIOXIDE (test code = 26 MEQ/L 2205) CALCIUM (test code = 2209) 9.7 MG/DL PROTEIN, TOTAL (test code = 8.4 G/DL 2228) ALBUMIN (test code = 2201) 4.6 G/DL CALC GLOBULIN (test code = 3.8 G/DL 2239) CALC A/G RATIO (test code = 1.2 RATIO 2233) BILIRUBIN, TOTAL (test code = 0.4 MG/DL 2207) ALKALINE PHOSPHATASE (test 90 U/L code = 2204) AST (test code = 2218) 23 U/L ALT (test code = 2219) 22 U/L LIPID [id number] 00:00:00 Test Item Value Reference Range Interpretation Comments CHOLESTEROL (test code = 2210) 194 MG/DL TRIGLYCERIDES (test code = 2232) 111 MG/DL HDL CHOLESTEROL (test code = 2220) 46 MG/DL CALC LDL CHOL (test code = 2237) 126 MG/DL RISK RATIO LDL/HDL (test code = 2.74 RATIO 2238) HEMOGLOBIN [id number] 00:00:00 Test Item Value Reference Range Interpretation Comments HEMOGLOBIN A1c (test code = 22496) 7.8 % HEMOGLOBIN [id number] 00:00:00 Test Item Value Reference Range Interpretation Comments HEMOGLOBIN A1c (test code = 53087) 7.8 % [id number] 00:00:00 Test Item Value Reference Range Interpretation Comments TSH, THIRD GENERATION (test code 9.180 UIU/ML = 2821) [id number] 00:00:00 Test Item Value Reference Range Interpretation Comments TSH, THIRD GENERATION (test code 9.180 UIU/ML = 2821) CBC W/AUTO [id number] 00:00:00 Test Item Value Reference Range Interpretation Comments WBC (test code = 1001) 6.4 K/UL RBC (test code = 1002) 5.42 M/UL HEMOGLOBIN (test code = 1003) 14.6 G/DL HEMATOCRIT (test code = 1004) 42.5 % MCV (test code = 1005) 78.4 fL MCH (test code = 1006) 26.9 PG MCHC (test code = 1007) 34.4 G/DL RDW (test code = 1038) 13.9 % NEUTROPHILS (test code = 1008) 57.2 % LYMPHOCYTES (test code = 1010) 31.9 % MONOCYTES (test code = 1011) 9.1 % EOSINOPHILS (test code = 1012) 1.3 % BASOPHILS (test code = 1013) 0.5 % PLATELET COUNT (test code = 1015) 256 K/UL CBC W/AUTO [id number] 00:00:00 Test Item Value Reference Range Interpretation Comments WBC (test code = 1001) 6.4 K/UL RBC (test code = 1002) 5.42 M/UL HEMOGLOBIN (test code = 1003) 14.6 G/DL HEMATOCRIT (test code = 1004) 42.5 % MCV (test code = 1005) 78.4 fL MCH (test code = 1006) 26.9 PG MCHC (test code = 1007) 34.4 G/DL RDW (test code = 1038) 13.9 % NEUTROPHILS (test code = 1008) 57.2 % LYMPHOCYTES (test code = 1010) 31.9 % MONOCYTES (test code = 1011) 9.1 % EOSINOPHILS (test code = 1012) 1.3 % BASOPHILS (test code = 1013) 0.5 % PLATELET COUNT (test code = 1015) 256 K/UL COMPREHENSIVE METABOLIC [id number] 00:00:00 Test Item Value Reference Range Interpretation Comments GLUCOSE (test code = 2217) 118 MG/DL BUN (test code = 2208) 10 MG/DL CREATININE (test code = 2214) 0.91 MG/DL eGFR AMER. (test code 113 ML/MIN/1.73 = 63045) eGFR NON- AMER. (test 98 ML/MIN/1.73 code = 67918) CALC BUN/CREAT (test code = 11 RATIO 2235) SODIUM (test code = 2231) 135 MEQ/L POTASSIUM (test code = 2228) 4.0 MEQ/L CHLORIDE (test code = 2215) 96 MEQ/L CARBON DIOXIDE (test code = 26 MEQ/L 2205) CALCIUM (test code = 2209) 9.7 MG/DL PROTEIN, TOTAL (test code = 8.4 G/DL 2228) ALBUMIN (test code = 2201) 4.6 G/DL CALC GLOBULIN (test code = 3.8 G/DL 0) CALC A/G RATIO (test code = 1.2 RATIO 2233) BILIRUBIN, TOTAL (test code = 0.4 MG/DL 2206) ALKALINE PHOSPHATASE (test 90 U/L code = 2204) AST (test code = 2218) 23 U/L ALT (test code = 2219) 22 U/L LIPID [id number] 00:00:00 Test Item Value Reference Range Interpretation Comments CHOLESTEROL (test code = 2210) 194 MG/DL TRIGLYCERIDES (test code = 2232) 111 MG/DL HDL CHOLESTEROL (test code = 2220) 46 MG/DL CALC LDL CHOL (test code = 2237) 126 MG/DL RISK RATIO LDL/HDL (test code = 2.74 RATIO 2238) HEMOGLOBIN [id number] 00:00:00 Test Item Value Reference Range Interpretation Comments HEMOGLOBIN A1c (test code = 70857) 7.8 % HEMOGLOBIN [id number] 00:00:00 Test Item Value Reference Range Interpretation Comments HEMOGLOBIN A1c (test code = 72819) 7.8 % [id number] 00:00:00 Test Item Value Reference Range Interpretation Comments TSH, THIRD GENERATION (test code 9.180 UIU/ML = 2821) [id number] 00:00:00 Test Item Value Reference Range Interpretation Comments TSH, THIRD GENERATION (test code 9.180 UIU/ML = 2821) CBC W/AUTO [id number] 00:00:00 Test Item Value Reference Range Interpretation Comments WBC (test code = 1001) 6.4 K/UL RBC (test code = 1002) 5.42 M/UL HEMOGLOBIN (test code = 1003) 14.6 G/DL HEMATOCRIT (test code = 1004) 42.5 % MCV (test code = 1005) 78.4 fL MCH (test code = 1006) 26.9 PG MCHC (test code = 1007) 34.4 G/DL RDW (test code = 1038) 13.9 % NEUTROPHILS (test code = 1008) 57.2 % LYMPHOCYTES (test code = 1010) 31.9 % MONOCYTES (test code = 1011) 9.1 % EOSINOPHILS (test code = 1012) 1.3 % BASOPHILS (test code = 1013) 0.5 % PLATELET COUNT (test code = 1015) 256 K/UL CBC W/AUTO [id number] 00:00:00 Test Item Value Reference Range Interpretation Comments WBC (test code = 1001) 6.4 K/UL RBC (test code = 1002) 5.42 M/UL HEMOGLOBIN (test code = 1003) 14.6 G/DL HEMATOCRIT (test code = 1004) 42.5 % MCV (test code = 1005) 78.4 fL MCH (test code = 1006) 26.9 PG MCHC (test code = 1007) 34.4 G/DL RDW (test code = 1038) 13.9 % NEUTROPHILS (test code = 1008) 57.2 % LYMPHOCYTES (test code = 1010) 31.9 % MONOCYTES (test code = 1011) 9.1 % EOSINOPHILS (test code = 1012) 1.3 % BASOPHILS (test code = 1013) 0.5 % PLATELET COUNT (test code = 1015) 256 K/UL HEMOGLOBIN [id number] 00:00:00 Test Item Value Reference Range Interpretation Comments HEMOGLOBIN A1c (test code = 28133) 7.0 % HEMOGLOBIN [id number] 00:00:00 Test Item Value Reference Range Interpretation Comments HEMOGLOBIN A1c (test code = 53383) 7.0 % HEMOGLOBIN [id number] 00:00:00 Test Item Value Reference Range Interpretation Comments HEMOGLOBIN A1c (test code = 95595) 7.0 % HEMOGLOBIN [id number] 00:00:00 Test Item Value Reference Range Interpretation Comments HEMOGLOBIN A1c (test code = 33630) 7.0 % LIPID [id number] 00:00:00 Test Item Value Reference Range Interpretation Comments CHOLESTEROL (test code = 2210) 146 MG/DL TRIGLYCERIDES (test code = 2232) 108 MG/DL HDL CHOLESTEROL (test code = 2220) 41 MG/DL CALC LDL CHOL (test code = 2237) 83 MG/DL RISK RATIO LDL/HDL (test code = 2.03 RATIO 2238) HEMOGLOBIN [id number] 00:00:00 Test Item Value Reference Range Interpretation Comments HEMOGLOBIN A1c (test code = 70895) 7.2 % HEMOGLOBIN [id number] 00:00:00 Test Item Value Reference Range Interpretation Comments HEMOGLOBIN A1c (test code = 14369) 7.2 % [id number] 00:00:00 Test Item Value Reference Range Interpretation Comments TSH, THIRD GENERATION (test code 2.780 UIU/ML = 2821) [id number] 00:00:00 Test Item Value Reference Range Interpretation Comments TSH, THIRD GENERATION (test code 2.780 UIU/ML = 2821) COMPREHENSIVE METABOLIC [id number] 00:00:00 Test Item Value Reference Range Interpretation Comments GLUCOSE (test code = 2217) 96 MG/DL BUN (test code = 2208) 17 MG/DL CREATININE (test code = 2214) 0.96 MG/DL eGFR AMER. (test code 107 ML/MIN/1.73 = 83901) eGFR NON- AMER. (test 92 ML/MIN/1.73 code = 99386) CALC BUN/CREAT (test code = 18 RATIO 2235) SODIUM (test code = 2231) 135 MEQ/L POTASSIUM (test code = 2228) 4.5 MEQ/L CHLORIDE (test code = 2215) 95 MEQ/L CARBON DIOXIDE (test code = 27 MEQ/L 2205) CALCIUM (test code = 2209) 10.1 MG/DL PROTEIN, TOTAL (test code = 8.3 G/DL 2228) ALBUMIN (test code = 2201) 4.9 G/DL CALC GLOBULIN (test code = 3.4 G/DL 2239) CALC A/G RATIO (test code = 1.4 RATIO 2233) BILIRUBIN, TOTAL (test code = 0.6 MG/DL 2206) ALKALINE PHOSPHATASE (test 83 U/L code = 2204) AST (test code = 2218) 26 U/L ALT (test code = 2219) 20 U/L LIPID [id number] 00:00:00 Test Item Value Reference Range Interpretation Comments CHOLESTEROL (test code = 2210) 146 MG/DL TRIGLYCERIDES (test code = 2232) 108 MG/DL HDL CHOLESTEROL (test code = 2220) 41 MG/DL CALC LDL CHOL (test code = 2237) 83 MG/DL RISK RATIO LDL/HDL (test code = 2.03 RATIO 2238) HEMOGLOBIN [id number] 00:00:00 Test Item Value Reference Range Interpretation Comments HEMOGLOBIN A1c (test code = 60105) 7.2 % HEMOGLOBIN [id number] 00:00:00 Test Item Value Reference Range Interpretation Comments HEMOGLOBIN A1c (test code = 42414) 7.2 % [id number] 00:00:00 Test Item Value Reference Range Interpretation Comments TSH, THIRD GENERATION (test code 2.780 UIU/ML = 2821) [id number] 00:00:00 Test Item Value Reference Range Interpretation Comments TSH, THIRD GENERATION (test code 2.780 UIU/ML = 2821) COMPREHENSIVE METABOLIC [id number] 00:00:00 Test Item Value Reference Range Interpretation Comments GLUCOSE (test code = 2217) 96 MG/DL BUN (test code = 2208) 17 MG/DL CREATININE (test code = 2214) 0.96 MG/DL eGFR AMER. (test code 107 ML/MIN/1.73 = 23135) eGFR NON- AMER. (test 92 ML/MIN/1.73 code = 17336) CALC BUN/CREAT (test code = 18 RATIO 2235) SODIUM (test code = 2231) 135 MEQ/L POTASSIUM (test code = 2228) 4.5 MEQ/L CHLORIDE (test code = 2215) 95 MEQ/L CARBON DIOXIDE (test code = 27 MEQ/L 2205) CALCIUM (test code = 2209) 10.1 MG/DL PROTEIN, TOTAL (test code = 8.3 G/DL 2228) ALBUMIN (test code = 220) 4.9 G/DL CALC GLOBULIN (test code = 3.4 G/DL 2239) CALC A/G RATIO (test code = 1.4 RATIO 2233) BILIRUBIN, TOTAL (test code = 0.6 MG/DL 2206) ALKALINE PHOSPHATASE (test 83 U/L code = 2204) AST (test code = 2218) 26 U/L ALT (test code = 2219) 20 U/L HEMOGLOBIN [id number] 00:00:00 Test Item Value Reference Range Interpretation Comments HEMOGLOBIN A1c (test code = 38762) 14.3 % HEMOGLOBIN [id number] 00:00:00 Test Item Value Reference Range Interpretation Comments HEMOGLOBIN A1c (test code = 98556) 14.3 % [id number] 00:00:00 Test Item Value Reference Range Interpretation Comments TESTOSTERONE (test code = 2830) 507 NG/DL [id number] 00:00:00 Test Item Value Reference Range Interpretation Comments TSH, THIRD GENERATION (test code 7.490 UIU/ML = 2821) [id number] 00:00:00 Test Item Value Reference Range Interpretation Comments TSH, THIRD GENERATION (test code 7.490 UIU/ML = 2821) HEMOGLOBIN [id number] 00:00:00 Test Item Value Reference Range Interpretation Comments HEMOGLOBIN A1c (test code = 33753) 14.3 % HEMOGLOBIN [id number] 00:00:00 Test Item Value Reference Range Interpretation Comments HEMOGLOBIN A1c (test code = 74155) 14.3 % [id number] 00:00:00 Test Item Value Reference Range Interpretation Comments TESTOSTERONE (test code = 2830) 507 NG/DL [id number] 00:00:00 Test Item Value Reference Range Interpretation Comments TSH, THIRD GENERATION (test code 7.490 UIU/ML = 2821) [id number] 00:00:00 Test Item Value Reference Range Interpretation Comments TSH, THIRD GENERATION (test code 7.490 UIU/ML = 2821) COMPREHENSIVE METABOLIC [id number] 00:00:00 Test Item Value Reference Range Interpretation Comments GLUCOSE (test code = 2217) 362 MG/DL BUN (test code = 2208) 16 MG/DL CREATININE (test code = 2214) 0.88 MG/DL eGFR AMER. (test code 118 ML/MIN/1.73 = 51892) eGFR NON- AMER. (test 102 ML/MIN/1.73 code = 84794) CALC BUN/CREAT (test code = 18 RATIO 2235) SODIUM (test code = 2231) 133 MEQ/L POTASSIUM (test code = 2228) 4.7 MEQ/L CHLORIDE (test code = 2215) 91 MEQ/L CARBON DIOXIDE (test code = 28 MEQ/L 2205) CALCIUM (test code = 2209) 9.9 MG/DL PROTEIN, TOTAL (test code = 8.3 G/DL 2228) ALBUMIN (test code = 2201) 4.4 G/DL CALC GLOBULIN (test code = 3.9 G/DL 0) CALC A/G RATIO (test code = 1.1 RATIO 4) BILIRUBIN, TOTAL (test code = 0.3 MG/DL 2206) ALKALINE PHOSPHATASE (test 127 U/L code = 2204) AST (test code = 2218) 14 U/L ALT (test code = 2219) 16 U/L LIPID [id number] 00:00:00 Test Item Value Reference Range Interpretation Comments CHOLESTEROL (test code = 2210) 174 MG/DL TRIGLYCERIDES (test code = 2232) 226 MG/DL HDL CHOLESTEROL (test code = 2220) 37 MG/DL CALC LDL CHOL (test code = 2237) 92 MG/DL RISK RATIO LDL/HDL (test code = 2.48 RATIO 2238) [id number] 00:00:00 Test Item Value Reference Range Interpretation Comments GGT (test code = 2216) 63 U/L COMPREHENSIVE METABOLIC [id number] 00:00:00 Test Item Value Reference Range Interpretation Comments GLUCOSE (test code = 2217) 362 MG/DL BUN (test code = 2208) 16 MG/DL CREATININE (test code = 2214) 0.88 MG/DL eGFR AMER. (test code 118 ML/MIN/1.73 = 38319) eGFR NON- AMER. (test 102 ML/MIN/1.73 code = 30302) CALC BUN/CREAT (test code = 18 RATIO 2235) SODIUM (test code = 2231) 133 MEQ/L POTASSIUM (test code = 2228) 4.7 MEQ/L CHLORIDE (test code = 2215) 91 MEQ/L CARBON DIOXIDE (test code = 28 MEQ/L 2205) CALCIUM (test code = 2209) 9.9 MG/DL PROTEIN, TOTAL (test code = 8.3 G/DL 2228) ALBUMIN (test code = 2201) 4.4 G/DL CALC GLOBULIN (test code = 3.9 G/DL 2239) CALC A/G RATIO (test code = 1.1 RATIO 4) BILIRUBIN, TOTAL (test code = 0.3 MG/DL 2206) ALKALINE PHOSPHATASE (test 127 U/L code = 2204) AST (test code = 2218) 14 U/L ALT (test code = 2219) 16 U/L LIPID [id number] 00:00:00 Test Item Value Reference Range Interpretation Comments CHOLESTEROL (test code = 2210) 174 MG/DL TRIGLYCERIDES (test code = 2232) 226 MG/DL HDL CHOLESTEROL (test code = 2220) 37 MG/DL CALC LDL CHOL (test code = 2237) 92 MG/DL RISK RATIO LDL/HDL (test code = 2.48 RATIO 2238) [id number] 00:00:00 Test Item Value Reference Range Interpretation Comments GGT (test code = 2216) 63 U/L CBC W/AUTO [id number] 00:00:00 Test Item Value Reference Range Interpretation Comments WBC (test code = 1001) 5.0 K/UL RBC (test code = 1002) 5.57 M/UL HEMOGLOBIN (test code = 1003) 14.5 G/DL HEMATOCRIT (test code = 1004) 43.1 % MCV (test code = 1005) 77.4 fL MCH (test code = 1006) 26.0 PG MCHC (test code = 1007) 33.6 G/DL RDW (test code = 1038) 11.8 % NEUTROPHILS (test code = 1008) 58.9 % LYMPHOCYTES (test code = 1010) 31.9 % MONOCYTES (test code = 1011) 7.0 % EOSINOPHILS (test code = 1012) 1.4 % BASOPHILS (test code = 1013) 0.8 % PLATELET COUNT (test code = 1015) 195 K/UL CBC W/AUTO [id number] 00:00:00 Test Item Value Reference Range Interpretation Comments WBC (test code = 1001) 5.0 K/UL RBC (test code = 1002) 5.57 M/UL HEMOGLOBIN (test code = 1003) 14.5 G/DL HEMATOCRIT (test code = 1004) 43.1 % MCV (test code = 1005) 77.4 fL MCH (test code = 1006) 26.0 PG MCHC (test code = 1007) 33.6 G/DL RDW (test code = 1038) 11.8 % NEUTROPHILS (test code = 1008) 58.9 % LYMPHOCYTES (test code = 1010) 31.9 % MONOCYTES (test code = 1011) 7.0 % EOSINOPHILS (test code = 1012) 1.4 % BASOPHILS (test code = 1013) 0.8 % PLATELET COUNT (test code = 1015) 195 K/UL COMPREHENSIVE METABOLIC [id number] 00:00:00 Test Item Value Reference Range Interpretation Comments GLUCOSE (test code = 2217) 539 MG/DL BUN (test code = 2208) 11 MG/DL CREATININE (test code = 2214) 0.92 MG/DL eGFR AMER. (test code 114 ML/MIN/1.73 = 15966) eGFR NON- AMER. (test 98 ML/MIN/1.73 code = 97708) CALC BUN/CREAT (test code = 12 RATIO 2235) SODIUM (test code = 2231) 132 MEQ/L POTASSIUM (test code = 2228) 4.8 MEQ/L CHLORIDE (test code = 2215) 91 MEQ/L CARBON DIOXIDE (test code = 26 MEQ/L 2206) CALCIUM (test code = 2209) 9.9 MG/DL PROTEIN, TOTAL (test code = 8.7 G/DL 2228) ALBUMIN (test code = 2201) 4.6 G/DL CALC GLOBULIN (test code = 4.1 G/DL 0) CALC A/G RATIO (test code = 1.1 RATIO 4) BILIRUBIN, TOTAL (test code = 0.4 MG/DL 2206) ALKALINE PHOSPHATASE (test 145 U/L code = 2204) AST (test code = 2218) 20 U/L ALT (test code = 2219) 23 U/L HEMOGLOBIN [id number] 00:00:00 Test Item Value Reference Range Interpretation Comments HEMOGLOBIN A1c (test code = 37665) >15.5 % HEMOGLOBIN [id number] 00:00:00 Test Item Value Reference Range Interpretation Comments HEMOGLOBIN A1c (test code = 22379) >15.5 % PSA, [id number] 00:00:00 Test Item Value Reference Range Interpretation Comments PSA, TOTAL (test code = 2606) 0.27 NG/ML PSA, [id number] 00:00:00 Test Item Value Reference Range Interpretation Comments PSA, TOTAL (test code = 2606) 0.27 NG/ML [id number] 00:00:00 Test Item Value Reference Range Interpretation Comments TSH, THIRD GENERATION (test code 5.040 UIU/ML = 2821) [id number] 00:00:00 Test Item Value Reference Range Interpretation Comments TSH, THIRD GENERATION (test code 5.040 UIU/ML = 2821) CBC W/AUTO [id number] 00:00:00 Test Item Value Reference Range Interpretation Comments WBC (test code = 1001) 5.0 K/UL RBC (test code = 1002) 5.57 M/UL HEMOGLOBIN (test code = 1003) 14.5 G/DL HEMATOCRIT (test code = 1004) 43.1 % MCV (test code = 1005) 77.4 fL MCH (test code = 1006) 26.0 PG MCHC (test code = 1007) 33.6 G/DL RDW (test code = 1038) 11.8 % NEUTROPHILS (test code = 1008) 58.9 % LYMPHOCYTES (test code = 1010) 31.9 % MONOCYTES (test code = 1011) 7.0 % EOSINOPHILS (test code = 1012) 1.4 % BASOPHILS (test code = 1013) 0.8 % PLATELET COUNT (test code = 1015) 195 K/UL CBC W/AUTO [id number] 00:00:00 Test Item Value Reference Range Interpretation Comments WBC (test code = 1001) 5.0 K/UL RBC (test code = 1002) 5.57 M/UL HEMOGLOBIN (test code = 1003) 14.5 G/DL HEMATOCRIT (test code = 1004) 43.1 % MCV (test code = 1005) 77.4 fL MCH (test code = 1006) 26.0 PG MCHC (test code = 1007) 33.6 G/DL RDW (test code = 1038) 11.8 % NEUTROPHILS (test code = 1008) 58.9 % LYMPHOCYTES (test code = 1010) 31.9 % MONOCYTES (test code = 1011) 7.0 % EOSINOPHILS (test code = 1012) 1.4 % BASOPHILS (test code = 1013) 0.8 % PLATELET COUNT (test code = 1015) 195 K/UL COMPREHENSIVE METABOLIC [id number] 00:00:00 Test Item Value Reference Range Interpretation Comments GLUCOSE (test code = 2217) 539 MG/DL BUN (test code = 2208) 11 MG/DL CREATININE (test code = 2214) 0.92 MG/DL eGFR AMER. (test code 114 ML/MIN/1.73 = 17529) eGFR NON- AMER. (test 98 ML/MIN/1.73 code = 10784) CALC BUN/CREAT (test code = 12 RATIO 2235) SODIUM (test code = 2231) 132 MEQ/L POTASSIUM (test code = 2228) 4.8 MEQ/L CHLORIDE (test code = 2215) 91 MEQ/L CARBON DIOXIDE (test code = 26 MEQ/L 2206) CALCIUM (test code = 2209) 9.9 MG/DL PROTEIN, TOTAL (test code = 8.7 G/DL 2228) ALBUMIN (test code = 2201) 4.6 G/DL CALC GLOBULIN (test code = 4.1 G/DL 0) CALC A/G RATIO (test code = 1.1 RATIO 2234) BILIRUBIN, TOTAL (test code = 0.4 MG/DL 2206) ALKALINE PHOSPHATASE (test 145 U/L code = 2204) AST (test code = 2218) 20 U/L ALT (test code = 2219) 23 U/L HEMOGLOBIN [id number] 00:00:00 Test Item Value Reference Range Interpretation Comments HEMOGLOBIN A1c (test code = 22770) >15.5 % HEMOGLOBIN [id number] 00:00:00 Test Item Value Reference Range Interpretation Comments HEMOGLOBIN A1c (test code = 23119) >15.5 % PSA, [id number] 00:00:00 Test Item Value Reference Range Interpretation Comments PSA, TOTAL (test code = 2606) 0.27 NG/ML PSA, [id number] 00:00:00 Test Item Value Reference Range Interpretation Comments PSA, TOTAL (test code = 2606) 0.27 NG/ML [id number] 00:00:00 Test Item Value Reference Range Interpretation Comments TSH, THIRD GENERATION (test code 5.040 UIU/ML = 2821) [id number] 00:00:00 Test Item Value Reference Range Interpretation Comments TSH, THIRD GENERATION (test code 5.040 UIU/ML = 2821) COMPREHENSIVE METABOLIC [id number] 00:00:00 Test Item Value Reference Range Interpretation Comments GLUCOSE (test code = 2217) 207 MG/DL BUN (test code = 2208) 11 MG/DL CREATININE (test code = 2214) 0.89 MG/DL eGFR AMER. (test code 117 ML/MIN/1.73 = 72078) eGFR NON- AMER. (test 101 ML/MIN/1.73 code = 94577) CALC BUN/CREAT (test code = 12 RATIO 2235) SODIUM (test code = 2231) 134 MEQ/L POTASSIUM (test code = 2228) 4.6 MEQ/L CHLORIDE (test code = 2215) 95 MEQ/L CARBON DIOXIDE (test code = 25 MEQ/L 2205) CALCIUM (test code = 2209) 9.5 MG/DL PROTEIN, TOTAL (test code = 8.4 G/DL 2228) ALBUMIN (test code = 2201) 4.4 G/DL CALC GLOBULIN (test code = 4.0 G/DL 2239) CALC A/G RATIO (test code = 1.1 RATIO 2233) BILIRUBIN, TOTAL (test code = 0.6 MG/DL 2207) ALKALINE PHOSPHATASE (test 130 U/L code = 2204) AST (test code = 2218) 20 U/L ALT (test code = 2219) 18 U/L [id number] 00:00:00 Test Item Value Reference Range Interpretation Comments TSH, THIRD GENERATION (test code 5.830 UIU/ML = 2821) [id number] 00:00:00 Test Item Value Reference Range Interpretation Comments TSH, THIRD GENERATION (test code 5.830 UIU/ML = 2821) CBC W/AUTO [id number] 00:00:00 Test Item Value Reference Range Interpretation Comments WBC (test code = 1001) 5.7 K/UL RBC (test code = 1002) 5.60 M/UL HEMOGLOBIN (test code = 1003) 14.4 G/DL HEMATOCRIT (test code = 1004) 41.7 % MCV (test code = 1005) 74.5 fL MCH (test code = 1006) 25.7 PG MCHC (test code = 1007) 34.5 G/DL RDW (test code = 1038) 12.6 % NEUTROPHILS (test code = 1008) 55.3 % LYMPHOCYTES (test code = 1010) 34.6 % MONOCYTES (test code = 1011) 8.2 % EOSINOPHILS (test code = 1012) 1.4 % BASOPHILS (test code = 1013) 0.5 % PLATELET COUNT (test code = 1015) 236 K/UL CBC W/AUTO [id number] 00:00:00 Test Item Value Reference Range Interpretation Comments WBC (test code = 1001) 5.7 K/UL RBC (test code = 1002) 5.60 M/UL HEMOGLOBIN (test code = 1003) 14.4 G/DL HEMATOCRIT (test code = 1004) 41.7 % MCV (test code = 1005) 74.5 fL MCH (test code = 1006) 25.7 PG MCHC (test code = 1007) 34.5 G/DL RDW (test code = 1038) 12.6 % NEUTROPHILS (test code = 1008) 55.3 % LYMPHOCYTES (test code = 1010) 34.6 % MONOCYTES (test code = 1011) 8.2 % EOSINOPHILS (test code = 1012) 1.4 % BASOPHILS (test code = 1013) 0.5 % PLATELET COUNT (test code = 1015) 236 K/UL COMPREHENSIVE METABOLIC [id number] 00:00:00 Test Item Value Reference Range Interpretation Comments GLUCOSE (test code = 2217) 207 MG/DL BUN (test code = 2208) 11 MG/DL CREATININE (test code = 2214) 0.89 MG/DL eGFR AMER. (test code 117 ML/MIN/1.73 = [address]) eGFR NON- AMER. (test 101 ML/MIN/1.73 code = 68957) CALC BUN/CREAT (test code = 12 RATIO 2235) SODIUM (test code = 2231) 134 MEQ/L POTASSIUM (test code = 2228) 4.6 MEQ/L CHLORIDE (test code = 2215) 95 MEQ/L CARBON DIOXIDE (test code = 25 MEQ/L 2205) CALCIUM (test code = 2209) 9.5 MG/DL PROTEIN, TOTAL (test code = 8.4 G/DL 2228) ALBUMIN (test code = 2201) 4.4 G/DL CALC GLOBULIN (test code = 4.0 G/DL 2240) CALC A/G RATIO (test code = 1.1 RATIO 2233) BILIRUBIN, TOTAL (test code = 0.6 MG/DL 2206) ALKALINE PHOSPHATASE (test 130 U/L code = 2204) AST (test code = 2218) 20 U/L ALT (test code = 2219) 18 U/L [id number] 00:00:00 Test Item Value Reference Range Interpretation Comments TSH, THIRD GENERATION (test code 5.830 UIU/ML = 2821) [id number] 00:00:00 Test Item Value Reference Range Interpretation Comments TSH, THIRD GENERATION (test code 5.830 UIU/ML = 2821) CBC W/AUTO [id number] 00:00:00 Test Item Value Reference Range Interpretation Comments WBC (test code = 1001) 5.7 K/UL RBC (test code = 1002) 5.60 M/UL HEMOGLOBIN (test code = 1003) 14.4 G/DL HEMATOCRIT (test code = 1004) 41.7 % MCV (test code = 1005) 74.5 fL MCH (test code = 1006) 25.7 PG MCHC (test code = 1007) 34.5 G/DL RDW (test code = 1038) 12.6 % NEUTROPHILS (test code = 1008) 55.3 % LYMPHOCYTES (test code = 1010) 34.6 % MONOCYTES (test code = 1011) 8.2 % EOSINOPHILS (test code = 1012) 1.4 % BASOPHILS (test code = 1013) 0.5 % PLATELET COUNT (test code = 1015) 236 K/UL CBC W/AUTO [id number] 00:00:00 Test Item Value Reference Range Interpretation Comments WBC (test code = 1001) 5.7 K/UL RBC (test code = 1002) 5.60 M/UL HEMOGLOBIN (test code = 1003) 14.4 G/DL HEMATOCRIT (test code = 1004) 41.7 % MCV (test code = 1005) 74.5 fL MCH (test code = 1006) 25.7 PG MCHC (test code = 1007) 34.5 G/DL RDW (test code = 1038) 12.6 % NEUTROPHILS (test code = 1008) 55.3 % LYMPHOCYTES (test code = 1010) 34.6 % MONOCYTES (test code = 1011) 8.2 % EOSINOPHILS (test code = 1012) 1.4 % BASOPHILS (test code = 1013) 0.5 % PLATELET COUNT (test code = 1015) 236 K/UL URINALYSIS (CULTURE IF INDICATED)2017-10-16 00:00:00 Test Item Value Reference Range Interpretation Comments COLOR (test code = 1501) YELLOW APPEARANCE (test code = 1502) CLEAR SPECIFIC GRAVITY (test code = 1.017 1503) LEUKOCYTE ESTERASE (test code = NEGATIVE 1504) NITRITE (test code = 1505) NEGATIVE pH (test code = 1506) 6.0 PROTEIN (test code = 1507) NEGATIVE GLUCOSE (test code = 1508) NEGATIVE KETONES (test code = 1509) NEGATIVE UROBILINOGEN (test code = 1510) <2.0 MG/DL BILIRUBIN (test code = 1511) NEGATIVE OCCULT BLOOD (test code = 1512) NEGATIVE URINALYSIS (CULTURE IF INDICATED)2017-10-16 00:00:00 Test Item Value Reference Range Interpretation Comments COLOR (test code = 1501) YELLOW APPEARANCE (test code = 1502) CLEAR SPECIFIC GRAVITY (test code = 1.017 1503) LEUKOCYTE ESTERASE (test code = NEGATIVE 1504) NITRITE (test code = 1505) NEGATIVE pH (test code = 1506) 6.0 PROTEIN (test code = 1507) NEGATIVE GLUCOSE (test code = 1508) NEGATIVE KETONES (test code = 1509) NEGATIVE UROBILINOGEN (test code = 1510) <2.0 MG/DL BILIRUBIN (test code = 1511) NEGATIVE OCCULT BLOOD (test code = 1512) NEGATIVE URINALYSIS (CULTURE IF INDICATED)2017-10-13 00:00:00 Test Item Value Reference Range Interpretation Comments COLOR (test code = 1501) TEST NOT PERFORMED APPEARANCE (test code = TEST NOT PERFORMED 1502) SPECIFIC GRAVITY (test TEST NOT PERFORMED code = 1503) LEUKOCYTE ESTERASE (test TEST NOT PERFORMED code = 1504) NITRITE (test code = TEST NOT PERFORMED 1505) pH (test code = 1506) TEST NOT PERFORMED PROTEIN (test code = TEST NOT PERFORMED 1507) GLUCOSE (test code = TEST NOT PERFORMED 1508) KETONES (test code = TEST NOT PERFORMED 1509) UROBILINOGEN (test code TEST NOT PERFORMED = 1510) MG/DL BILIRUBIN (test code = TEST NOT PERFORMED 1511) OCCULT BLOOD (test code TEST NOT PERFORMED = 1512) URINALYSIS (CULTURE IF INDICATED)2017-10-13 00:00:00 Test Item Value Reference Range Interpretation Comments COLOR (test code = 1501) TEST NOT PERFORMED APPEARANCE (test code = TEST NOT PERFORMED 1502) SPECIFIC GRAVITY (test TEST NOT PERFORMED code = 1503) LEUKOCYTE ESTERASE (test TEST NOT PERFORMED code = 1504) NITRITE (test code = TEST NOT PERFORMED 1505) pH (test code = 1506) TEST NOT PERFORMED PROTEIN (test code = TEST NOT PERFORMED 1507) GLUCOSE (test code = TEST NOT PERFORMED 1508) KETONES (test code = TEST NOT PERFORMED 1509) UROBILINOGEN (test code TEST NOT PERFORMED = 1510) MG/DL BILIRUBIN (test code = TEST NOT PERFORMED 1511) OCCULT BLOOD (test code TEST NOT PERFORMED = 1512) CBC W/AUTO [id number] 00:00:00 Test Item Value Reference Range Interpretation Comments WBC (test code = 1001) 5.3 K/UL RBC (test code = 1002) 5.26 M/UL HEMOGLOBIN (test code = 1003) 14.2 G/DL HEMATOCRIT (test code = 1004) 40.5 % MCV (test code = 1005) 77.0 fL MCH (test code = 1006) 27.0 PG MCHC (test code = 1007) 35.1 G/DL RDW (test code = 1038) 12.5 % NEUTROPHILS (test code = 1008) 51.7 % LYMPHOCYTES (test code = 1010) 35.8 % MONOCYTES (test code = 1011) 10.7 % EOSINOPHILS (test code = 1012) 0.9 % BASOPHILS (test code = 1013) 0.9 % PLATELET COUNT (test code = 1015) 239 K/UL HEMOGLOBIN [id number] 00:00:00 Test Item Value Reference Range Interpretation Comments HEMOGLOBIN A1c (test code = 10858) 8.0 % HEMOGLOBIN [id number] 00:00:00 Test Item Value Reference Range Interpretation Comments HEMOGLOBIN A1c (test code = 70828) 8.0 % LIPID [id number] 00:00:00 Test Item Value Reference Range Interpretation Comments CHOLESTEROL (test code = 2210) 157 MG/DL TRIGLYCERIDES (test code = 2232) 80 MG/DL HDL CHOLESTEROL (test code = 2220) 46 MG/DL CALC LDL CHOL (test code = 2237) 95 MG/DL RISK RATIO LDL/HDL (test code = 2.07 RATIO 2238) COMPREHENSIVE METABOLIC [id number] 00:00:00 Test Item Value Reference Range Interpretation Comments GLUCOSE (test code = 2217) 129 MG/DL BUN (test code = 2208) 9 MG/DL CREATININE (test code = 2214) 0.84 MG/DL eGFR AMER. (test code 120 ML/MIN/1.73 = 14384) eGFR NON- AMER. (test 104 ML/MIN/1.73 code = 39077) CALC BUN/CREAT (test code = 11 RATIO 2235) SODIUM (test code = 2231) 136 MEQ/L POTASSIUM (test code = 2228) 4.4 MEQ/L CHLORIDE (test code = 2215) 94 MEQ/L CARBON DIOXIDE (test code = 28 MEQ/L 220) CALCIUM (test code = 2209) 10.4 MG/DL PROTEIN, TOTAL (test code = 9.2 G/DL 2228) ALBUMIN (test code = 2201) 4.5 G/DL CALC GLOBULIN (test code = 4.7 G/DL 2240) CALC A/G RATIO (test code = 1.0 RATIO 2234) BILIRUBIN, TOTAL (test code = 0.8 MG/DL 2206) ALKALINE PHOSPHATASE (test 114 U/L code = 2204) AST (test code = 2218) 22 U/L ALT (test code = 2219) 19 U/L [id number] 00:00:00 Test Item Value Reference Range Interpretation Comments TSH (test code = 2821) 6.110 UIU/ML [id number] 00:00:00 Test Item Value Reference Range Interpretation Comments TSH (test code = 2821) 6.110 UIU/ML [id number] 00:00:00 Test Item Value Reference Range Interpretation Comments LIPASE (test code = 2058) 10 U/L [id number] 00:00:00 Test Item Value Reference Range Interpretation Comments LIPASE (test code = 2058) 10 U/L CBC W/AUTO [id number] 00:00:00 Test Item Value Reference Range Interpretation Comments WBC (test code = 1001) 5.3 K/UL RBC (test code = 1002) 5.26 M/UL HEMOGLOBIN (test code = 1003) 14.2 G/DL HEMATOCRIT (test code = 1004) 40.5 % MCV (test code = 1005) 77.0 fL MCH (test code = 1006) 27.0 PG MCHC (test code = 1007) 35.1 G/DL RDW (test code = 1038) 12.5 % NEUTROPHILS (test code = 1008) 51.7 % LYMPHOCYTES (test code = 1010) 35.8 % MONOCYTES (test code = 1011) 10.7 % EOSINOPHILS (test code = 1012) 0.9 % BASOPHILS (test code = 1013) 0.9 % PLATELET COUNT (test code = 1015) 239 K/UL CBC W/AUTO [id number] 00:00:00 Test Item Value Reference Range Interpretation Comments WBC (test code = 1001) 5.3 K/UL RBC (test code = 1002) 5.26 M/UL HEMOGLOBIN (test code = 1003) 14.2 G/DL HEMATOCRIT (test code = 1004) 40.5 % MCV (test code = 1005) 77.0 fL MCH (test code = 1006) 27.0 PG MCHC (test code = 1007) 35.1 G/DL RDW (test code = 1038) 12.5 % NEUTROPHILS (test code = 1008) 51.7 % LYMPHOCYTES (test code = 1010) 35.8 % MONOCYTES (test code = 1011) 10.7 % EOSINOPHILS (test code = 1012) 0.9 % BASOPHILS (test code = 1013) 0.9 % PLATELET COUNT (test code = 1015) 239 K/UL HEMOGLOBIN [id number] 00:00:00 Test Item Value Reference Range Interpretation Comments HEMOGLOBIN A1c (test code = 13209) 8.0 % HEMOGLOBIN [id number] 00:00:00 Test Item Value Reference Range Interpretation Comments HEMOGLOBIN A1c (test code = 37332) 8.0 % LIPID [id number] 00:00:00 Test Item Value Reference Range Interpretation Comments CHOLESTEROL (test code = 2210) 157 MG/DL TRIGLYCERIDES (test code = 2232) 80 MG/DL HDL CHOLESTEROL (test code = 2220) 46 MG/DL CALC LDL CHOL (test code = 2237) 95 MG/DL RISK RATIO LDL/HDL (test code = 2.07 RATIO 2238) COMPREHENSIVE METABOLIC [id number] 00:00:00 Test Item Value Reference Range Interpretation Comments GLUCOSE (test code = 2217) 129 MG/DL BUN (test code = 2208) 9 MG/DL CREATININE (test code = 2214) 0.84 MG/DL eGFR AMER. (test code 120 ML/MIN/1.73 = 84386) eGFR NON- AMER. (test 104 ML/MIN/1.73 code = 64459) CALC BUN/CREAT (test code = 11 RATIO 2235) SODIUM (test code = 2231) 136 MEQ/L POTASSIUM (test code = 2228) 4.4 MEQ/L CHLORIDE (test code = 2215) 94 MEQ/L CARBON DIOXIDE (test code = 28 MEQ/L 220) CALCIUM (test code = 2209) 10.4 MG/DL PROTEIN, TOTAL (test code = 9.2 G/DL 2228) ALBUMIN (test code = 2201) 4.5 G/DL CALC GLOBULIN (test code = 4.7 G/DL 2240) CALC A/G RATIO (test code = 1.0 RATIO 2234) BILIRUBIN, TOTAL (test code = 0.8 MG/DL 2207) ALKALINE PHOSPHATASE (test 114 U/L code = 2204) AST (test code = 2218) 22 U/L ALT (test code = 2219) 19 U/L [id number] 00:00:00 Test Item Value Reference Range Interpretation Comments TSH (test code = 2821) 6.110 UIU/ML [id number] 00:00:00 Test Item Value Reference Range Interpretation Comments TSH (test code = 2821) 6.110 UIU/ML [id number] 00:00:00 Test Item Value Reference Range Interpretation Comments LIPASE (test code = 8) 10 U/L [id number] 00:00:00 Test Item Value Reference Range Interpretation Comments LIPASE (test code = 2057) 10 U/L CBC W/AUTO [id number] 00:00:00 Test Item Value Reference Range Interpretation Comments WBC (test code = 1001) 5.3 K/UL RBC (test code = 1002) 5.26 M/UL HEMOGLOBIN (test code = 1003) 14.2 G/DL HEMATOCRIT (test code = 1004) 40.5 % MCV (test code = 1005) 77.0 fL MCH (test code = 1006) 27.0 PG MCHC (test code = 1007) 35.1 G/DL RDW (test code = 1038) 12.5 % NEUTROPHILS (test code = 1008) 51.7 % LYMPHOCYTES (test code = 1010) 35.8 % MONOCYTES (test code = 1011) 10.7 % EOSINOPHILS (test code = 1012) 0.9 % BASOPHILS (test code = 1013) 0.9 % PLATELET COUNT (test code = 1015) 239 K/UL BLOOD [id number] 17:00:00 Test Item Value Reference Range Interpretation Comments CULTURE (BEAKER) (test No growth in 5 days code = 1095) BLOOD [id number] 11:24:00 Test Item Value Reference Range Interpretation Comments CULTURE A From Anaerobic Bottle (BEAKER) (test Only Coagulas e code = 1095) negative Staphylococcus GRAM STAIN From anaerobic RESULT (BEAKER) bottle only: gram (test code = positive cocci in 1123) clusters Coagulase Negative Staphylococcus Species (CoNS) DETECTED, Methicillin Susceptible First line therapy: cefazolin, nafcillin (nafcillin preferred for Central Nervous System infection) Coagulase NegativeStaphylococcus (CoNS) DETECTEDmecA NOT DETECTEDOther organisms and resistance markers not contained in this PCR panel cannot be excluded and follow-up of traditional culture results is required. This sample was tested at the [facility] Clinical Microbiology Laboratory using the [employer] Blood Culture ID Panel. This test is FDA cleared for in vitro diagnostic use and has been verified and approvedby the [facility] Clinical Microbiology laboratory for clinical use. Reference Range: Not DetectedBLOOD [id number] 06:24:00 Test Item Value Reference Range Interpretation Comments CULTURE (BEAKER) (test No growth in 5 days code = 1095) POCT-GLUCOSE [id number] 12:29:00 Test Item Value Reference Range Interpretation Comments POC-GLUCOSE METER 96 mg/dL 70-110 TESTED AT [place] [address] ([facility]) (test code = [facility] [address] 1538) POCT-GLUCOSE [id number] 07:22:00 Test Item Value Reference Range Interpretation Comments POC-GLUCOSE METER 82 mg/dL 70-110 TESTED AT [place] [address] ([facility]) (test code = [facility] [address] 1538) [id number] 05:06:00 Test Item Value Reference Range Interpretation Comments LIPASE (BEAKER) (test code = 749) 113 U/L 8-78 H COMPREHENSIVE METABOLIC [id number] 05:06:00 Test Item Value Reference Range Interpretation Comments TOTAL PROTEIN 7.0 gm/dL 6.0-8.3 (BEAKER) (test code = 770) ALBUMIN (BEAKER) 2.6 g/dL 3.5-5.0 L (test code = 1145) ALKALINE PHOSPHATASE 67 U/L 40-150 (BEAKER) (test code = 346) BILIRUBIN TOTAL 1.5 mg/dL 0.2-1.2 H (BEAKER) (test code = 377) SODIUM (BEAKER) (test 130 meq/L 136-145 L code = 381) POTASSIUM (BEAKER) 3.4 meq/L 3.5-5.1 L (test code = 379) CHLORIDE (BEAKER) 101 meq/L 98-107 (test code = 382) CO2 (BEAKER) (test 21 meq/L 22-29 L code = 355) BLOOD UREA NITROGEN 6 mg/dL 7-21 L (BEAKER) (test code = 354) CREATININE (BEAKER) 0.65 mg/dL 0.57-1.25 (test code = 358) GLUCOSE RANDOM 88 mg/dL 70-105 (BEAKER) (test code = 652) CALCIUM (BEAKER) 8.1 mg/dL 8.4-10.2 L (test code = 697) AST (SGOT) (BEAKER) 42 U/L 5-34 H (test code = 353) ALT (SGPT) (BEAKER) 18 U/L 6-55 (test code = 347) EGFR (BEAKER) (test 160 ESTIMATE D GFR IS code = 1092) mL/min/1.73 sq NOT ACCURA TE m CREATININE CLEARANCE IN PREDICTING GLOMERULAR FILTRATION RATE . ESTIMATED GFR I S NOT APPLICABLE FOR DIALYSIS PATIEN TS. CBC W/PLT COUNT & AUTO [id number] 04:48:00 Test Item Value Reference Range Interpretation Comments WHITE BLOOD CELL COUNT (BEAKER) 6.6 K/ L 3.5-10.5 (test code = 775) RED BLOOD CELL COUNT (BEAKER) 4.01 M/ L 4.63-6.08 L (test code = 761) HEMOGLOBIN (BEAKER) (test code = 11.3 GM/DL 13.7-17.5 L 410) HEMATOCRIT (BEAKER) (test code = 34.4 % 40.1-51.0 L 411) MEAN CORPUSCULAR VOLUME (BEAKER) 85.8 fL 79.0-92.2 (test code = 753) MEAN CORPUSCULAR HEMOGLOBIN 28.2 pg 25.7-32.2 (BEAKER) (test code = 751) MEAN CORPUSCULAR HEMOGLOBIN CONC 32.8 GM/DL 32.3-36.5 (BEAKER) (test code = 752) RED CELL DISTRIBUTION WIDTH 14.0 % 11.6-14.4 (BEAKER) (test code = 412) PLATELET COUNT (BEAKER) (test 126 K/CU MM 150-450 L code = 756) MEAN PLATELET VOLUME (BEAKER) 10.1 fL 9.4-12.4 (test code = 754) NUCLEATED RED BLOOD CELLS 0 /100 WBC 0-0 (BEAKER) (test code = 413) NEUTROPHILS RELATIVE PERCENT 66 % (BEAKER) (test code = 429) LYMPHOCYTES RELATIVE PERCENT 20 % (BEAKER) (test code = 430) MONOCYTES RELATIVE PERCENT 12 % (BEAKER) (test code = 431) EOSINOPHILS RELATIVE PERCENT 2 % (BEAKER) (test code = 432) BASOPHILS RELATIVE PERCENT 1 % (BEAKER) (test code = 437) NEUTROPHILS ABSOLUTE COUNT 4.30 K/ L 1.78-5.38 (BEAKER) (test code = 670) LYMPHOCYTES ABSOLUTE COUNT 1.29 K/ L 1.32-3.57 L (BEAKER) (test code = 414) MONOCYTES ABSOLUTE COUNT (BEAKER) 0.80 K/ L 0.30-0.82 (test code = 415) EOSINOPHILS ABSOLUTE COUNT 0.10 K/ L 0.04-0.54 (BEAKER) (test code = 416) BASOPHILS ABSOLUTE COUNT (BEAKER) 0.03 K/ L 0.01-0.08 (test code = 417) IMMATURE GRANULOCYTES-RELATIVE 1 % 0-1 PERCENT (BEAKER) (test code = 2801) POCT-GLUCOSE [id number] 00:39:00 Test Item Value Reference Range Interpretation Comments POC-GLUCOSE METER 86 mg/dL 70-110 TESTED AT [facility] [address] (BEAKER) (test code = [facility] [address] 1538) U/S, ABDOMINAL, [id number] 18:40:00Reason for exam:->acute pancreatitis, evaluate gallbladder for stones, etcFINAL REPORT TECHNIQUE: Grayscale ultrasound of the abdomen. INDICATION: 46-year-old man with acute pancreatitis. COMPARISON: None. FINDINGS: MIDLINE VASCULATURE: The visualized inferior vena cava is patent. Portal vein is patent. Abdominal aorta is not clearly visualized secondary to overlying bowel gas. LIVER: Increased echogenicity of the liver with coarsened echotexture and somewhat nodular contour. No focal lesions. BILIARY:Gallbladder: No gallstones or sludge. No gallbladder wall thickening, pericholecystic fluid, or distention. Negative sonographic Faust sign.Common bile duct measures 0.3 cm, within normal limits. No intrahepatic biliary ductal dilatation. PANCREAS: Incompletely visualized due to overlying bowel gas. SPLEEN: No splenomegaly. PERITONEUM: Trace ascites. KIDNEYS: Normal in size bilaterally. No hydronephrosis. No sonographically evident solid mass lesion. IMPRESSION:No cholelithiasis. Hepatic findings suggestive of cirrhosis. Trace ascites. Signed: Dawood Tolentino MDReport Verified Date/Time: 08/03/2017 18:40:23 Reading Location: [facility] [id number] Ultrasound Reading Room MISCELLANEOUS LAB [id number] 14:45:00 Test Item Value Reference Range Interpretation Comments SCAN RESULT (test code = 7702266) Result comments: Coagulase Negative Staphylococcus Species (CoNS) DETECTED, Methicillin Susceptible First line therapy: cefazolin, nafcillin (nafcillin preferred for Central Nervous System infection) Coagulase Negative Staphylococcus (CoNS) DETECTED mecA NOT DETECTED Other organisms and resistance markers not contained in this PCR panel cannot be excluded and follow-up of traditional culture results is required. This sample was tested at the [facility] Clinical Microbiology Laboratory using the [employer] Blood Culture ID Panel. This test is FDA cleared for in vitro diagnostic use and has been benjamin ified and approved by the [facility] Clinical Microbiology laboratory for clinical use. Reference Range: Not DetectedPOCT-GLUCOSE [id number] 13:54:00 Test Item Value Reference Range Interpretation Comments POC-GLUCOSE METER 84 mg/dL 70-110 TESTED AT [place] [address] ([facility]) (test code = [facility] [address] 1538) POCT-GLUCOSE [id number] 12:20:00 Test Item Value Reference Range Interpretation Comments POC-GLUCOSE METER 91 mg/dL 70-110 TESTED AT [place] [address] ([facility]) (test code = [facility] [address] 1538) POCT-GLUCOSE [id number] 06:38:00 Test Item Value Reference Range Interpretation Comments POC-GLUCOSE METER 89 mg/dL 70-110 TESTED AT [place] [address] ([facility]) (test code = [facility] [address] 1538) [id number] 05:40:00 Test Item Value Reference Range Interpretation Comments MAGNESIUM ([facility]) (test code = 1.8 mg/dL 1.6-2.6 627) BASIC METABOLIC [id number] 05:40:00 Test Item Value Reference Range Interpretation Comments SODIUM ([facility]) 135 meq/L 136-145 L (test code = 381) POTASSIUM (BEAKER) 3.6 meq/L 3.5-5.1 (test code = 379) CHLORIDE (BEAKER) 104 meq/L 98-107 (test code = 382) CO2 (BEAKER) (test 24 meq/L 22-29 code = 355) BLOOD UREA NITROGEN 7 mg/dL 7-21 (BEAKER) (test code = 354) CREATININE (BEAKER) 0.66 mg/dL 0.57-1.25 (test code = 358) GLUCOSE RANDOM 91 mg/dL 70-105 (BEAKER) (test code = 652) CALCIUM (BEAKER) 8.3 mg/dL 8.4-10.2 L (test code = 697) EGFR (BEAKER) (test 157 mL/min/1.73 ESTIM ATED GFR IS code = 1092) sq m NOT ACCURATE CREATININE CLEARANCE IN PREDICTING GLOMERULAR FILTRATION RATE . ESTIMATED GFR I S NOT APPLICABLE FOR DIALYSIS PATIEN TS. HEPATIC FUNCTION [id number] 05:40:00 Test Item Value Reference Range Interpretation Comments TOTAL PROTEIN (BEAKER) (test code = 7.1 gm/dL 6.0-8.3 770) ALBUMIN (BEAKER) (test code = 1145) 2.7 g/dL 3.5-5.0 L BILIRUBIN TOTAL (BEAKER) (test code 1.9 mg/dL 0.2-1.2 H = 377) BILIRUBIN DIRECT (BEAKER) (test 0.9 mg/dL 0.1-0.5 H code = 706) ALKALINE PHOSPHATASE (BEAKER) (test 72 U/L 40-150 code = 346) AST (SGOT) (BEAKER) (test code = 50 U/L 5-34 H 353) ALT (SGPT) (BEAKER) (test code = 19 U/L 6-55 347) [id number] 05:40:00 Test Item Value Reference Range Interpretation Comments LIPASE (BEAKER) (test code = 749) 154 U/L 8-78 H CBC W/PLT COUNT & AUTO [id number] 05:10:00 Test Item Value Reference Range Interpretation Comments WHITE BLOOD CELL COUNT (BEAKER) 8.5 K/ L 3.5-10.5 (test code = 775) RED BLOOD CELL COUNT (BEAKER) 4.07 M/ L 4.63-6.08 L (test code = 761) HEMOGLOBIN (BEAKER) (test code = 11.6 GM/DL 13.7-17.5 L 410) HEMATOCRIT (BEAKER) (test code = 36.0 % 40.1-51.0 L 411) MEAN CORPUSCULAR VOLUME (BEAKER) 88.5 fL 79.0-92.2 (test code = 753) MEAN CORPUSCULAR HEMOGLOBIN 28.5 pg 25.7-32.2 (BEAKER) (test code = 751) MEAN CORPUSCULAR HEMOGLOBIN CONC 32.2 GM/DL 32.3-36.5 L (BEAKER) (test code = 752) RED CELL DISTRIBUTION WIDTH 14.6 % 11.6-14.4 H (BEAKER) (test code = 412) PLATELET COUNT (BEAKER) (test 115 K/CU MM 150-450 L code = 756) MEAN PLATELET VOLUME (BEAKER) 10.4 fL 9.4-12.4 (test code = 754) NUCLEATED RED BLOOD CELLS 0 /100 WBC 0-0 (BEAKER) (test code = 413) NEUTROPHILS RELATIVE PERCENT 66 % (BEAKER) (test code = 429) LYMPHOCYTES RELATIVE PERCENT 20 % (BEAKER) (test code = 430) MONOCYTES RELATIVE PERCENT 13 % (BEAKER) (test code = 431) EOSINOPHILS RELATIVE PERCENT 1 % (BEAKER) (test code = 432) BASOPHILS RELATIVE PERCENT 0 % (BEAKER) (test code = 437) NEUTROPHILS ABSOLUTE COUNT 5.59 K/ L 1.78-5.38 H (BEAKER) (test code = 670) LYMPHOCYTES ABSOLUTE COUNT 1.65 K/ L 1.32-3.57 (BEAKER) (test code = 414) MONOCYTES ABSOLUTE COUNT (BEAKER) 1.10 K/ L 0.30-0.82 H (test code = 415) EOSINOPHILS ABSOLUTE COUNT 0.05 K/ L 0.04-0.54 (BEAKER) (test code = 416) BASOPHILS ABSOLUTE COUNT (BEAKER) 0.03 K/ L 0.01-0.08 (test code = 417) IMMATURE GRANULOCYTES-RELATIVE 1 % 0-1 PERCENT (BEAKER) (test code = 2801) POCT-GLUCOSE [id number] 00:06:00 Test Item Value Reference Range Interpretation Comments POC-GLUCOSE METER 107 mg/dL 70-110 TESTED AT [place] [address] ([facility]) (test code = [facility] 1538) [id number] POCT-GLUCOSE [id number] 18:16:00 Test Item Value Reference Range Interpretation Comments POC-GLUCOSE METER 101 mg/dL 70-110 TESTED AT [place] [address] ([facility]) (test code = [facility] 1538) [address] LIPID [id number] 16:17:00 Test Item Value Reference Range Interpretation Comments TRIGLYCERIDES ([facility]) (test code = 65 mg/dL 540) CHOLESTEROL ([facility]) (test code = 139 mg/dL 631) HDL CHOLESTEROL ([facility]) (test code 48 mg/dL = 976) LDL CHOLESTEROL CALCULATED ([facility]) 78 mg/dL (test code = 633) Triglyceride Reference Range: Low Risk <150 Borderline 150-199 High Risk 200- 499 Very High Risk >=500Cholesterol Reference Range: Low Risk <200 Borderline 200-239 High Risk >240HDL Cholesterol Reference Range: Low Risk >=60 High Risk <40LDL Cholesterol Reference Range: Optimal <100 Near Optimal 100-129 Borderline 130-159 High 160-189 Very High >=190POCT-GLUCOSE [id number] 12:27:00 Test Item Value Reference Range Interpretation Comments POC-GLUCOSE METER 113 mg/dL 70-110 H TESTED AT [place] [address] ([facility]) (test code = [facility] 1538) [id number] HEMOGLOBIN [id number] 10:30:00 Test Item Value Reference Range Interpretation Comments HEMOGLOBIN A1C ([facility]) (test code = 6.4 % 4.3-6.1 H 368) POCT-GLUCOSE [id number] 06:23:00 Test Item Value Reference Range Interpretation Comments POC-GLUCOSE METER 96 mg/dL 70-110 TESTED AT [place] [address] ([facility]) (test code = [facility] [id number] 1538) [id number] 06:02:00 Test Item Value Reference Range Interpretation Comments MAGNESIUM ([facility]) (test code = 1.5 mg/dL 1.6-2.6 L 627) BASIC METABOLIC [id number] 06:02:00 Test Item Value Reference Range Interpretation Comments SODIUM (BEAKER) 134 meq/L 136-145 L (test code = 381) POTASSIUM (BEAKER) 3.6 meq/L 3.5-5.1 (test code = 379) CHLORIDE (BEAKER) 103 meq/L 98-107 (test code = 382) CO2 (BEAKER) (test 23 meq/L 22-29 code = 355) BLOOD UREA NITROGEN 5 mg/dL 7-21 L (BEAKER) (test code = 354) CREATININE (BEAKER) 0.67 mg/dL 0.57-1.25 (test code = 358) GLUCOSE RANDOM 102 mg/dL 70-105 (BEAKER) (test code = 652) CALCIUM (BEAKER) 8.3 mg/dL 8.4-10.2 L (test code = 697) EGFR (BEAKER) (test 154 mL/min/1.73 ESTIM ATED GFR IS code = 1092) sq m NOT ACCURATE CREATININE CLEARANCE IN PREDICTING GLOMERULAR FILTRATION RATE . ESTIMATED GFR I S NOT APPLICABLE FOR DIALYSIS PATIEN TS. HEPATIC FUNCTION [id number] 06:02:00 Test Item Value Reference Range Interpretation Comments TOTAL PROTEIN (BEAKER) (test code = 8.1 gm/dL 6.0-8.3 770) ALBUMIN (BEAKER) (test code = 1145) 3.1 g/dL 3.5-5.0 L BILIRUBIN TOTAL (BEAKER) (test code 1.6 mg/dL 0.2-1.2 H = 377) BILIRUBIN DIRECT (BEAKER) (test 0.8 mg/dL 0.1-0.5 H code = 706) ALKALINE PHOSPHATASE (BEAKER) (test 80 U/L 40-150 code = 346) AST (SGOT) (BEAKER) (test code = 45 U/L 5-34 H 353) ALT (SGPT) (BEAKER) (test code = 19 U/L 6-55 347) [id number] 06:02:00 Test Item Value Reference Range Interpretation Comments LIPASE (BEAKER) (test code = 749) 419 U/L 8-78 H CBC W/PLT COUNT & AUTO [id number] 05:05:00 Test Item Value Reference Range Interpretation Comments WHITE BLOOD CELL COUNT (BEAKER) 13.0 K/ L 3.5-10.5 H (test code = 775) RED BLOOD CELL COUNT (BEAKER) 4.76 M/ L 4.63-6.08 (test code = 761) HEMOGLOBIN (BEAKER) (test code = 13.8 GM/DL 13.7-17.5 410) HEMATOCRIT (BEAKER) (test code = 41.4 % 40.1-51.0 411) MEAN CORPUSCULAR VOLUME (BEAKER) 87.0 fL 79.0-92.2 (test code = 753) MEAN CORPUSCULAR HEMOGLOBIN 29.0 pg 25.7-32.2 (BEAKER) (test code = 751) MEAN CORPUSCULAR HEMOGLOBIN CONC 33.3 GM/DL 32.3-36.5 (BEAKER) (test code = 752) RED CELL DISTRIBUTION WIDTH 14.6 % 11.6-14.4 H (BEAKER) (test code = 412) PLATELET COUNT (BEAKER) (test 138 K/CU MM 150-450 L code = 756) MEAN PLATELET VOLUME (BEAKER) 10.0 fL 9.4-12.4 (test code = 754) NUCLEATED RED BLOOD CELLS 0 /100 WBC 0-0 (BEAKER) (test code = 413) NEUTROPHILS RELATIVE PERCENT 79 % (BEAKER) (test code = 429) LYMPHOCYTES RELATIVE PERCENT 10 % (BEAKER) (test code = 430) MONOCYTES RELATIVE PERCENT 10 % (BEAKER) (test code = 431) EOSINOPHILS RELATIVE PERCENT 0 % (BEAKER) (test code = 432) BASOPHILS RELATIVE PERCENT 0 % (BEAKER) (test code = 437) NEUTROPHILS ABSOLUTE COUNT 10.28 K/ L 1.78-5.38 H (BEAKER) (test code = 670) LYMPHOCYTES ABSOLUTE COUNT 1.35 K/ L 1.32-3.57 (BEAKER) (test code = 414) MONOCYTES ABSOLUTE COUNT (BEAKER) 1.24 K/ L 0.30-0.82 H (test code = 415) EOSINOPHILS ABSOLUTE COUNT 0.01 K/ L 0.04-0.54 L (BEAKER) (test code = 416) BASOPHILS ABSOLUTE COUNT (BEAKER) 0.01 K/ L 0.01-0.08 (test code = 417) IMMATURE GRANULOCYTES-RELATIVE 1 % 0-1 PERCENT (BEAKER) (test code = 5531) URINALYSIS W/ REFLEX URINE [id number] 00:30:00 Test Item Value Reference Range Interpretation Comments COLOR (BEAKER) (test code = Yellow 470) CLARITY (BEAKER) (test code = Slightly Hazy 469) SPECIFIC GRAVITY UA (BEAKER) 1.038 1.001-1.035 H (test code = 468) PH UA (BEAKER) (test code = 6.5 5.0-8.0 467) PROTEIN UA (BEAKER) (test code 50 mg/dL Negative A = 464) GLUCOSE UA (BEAKER) (test code 50 mg/dL Negative A = 365) KETONES UA (BEAKER) (test code Negative Negative = 371) BILIRUBIN UA (BEAKER) (test Negative Negative code = 462) BLOOD UA (BEAKER) (test code = Trace Negative A 461) NITRITE UA (BEAKER) (test code Negative Negative = 465) LEUKOCYTE ESTERASE UA (BEAKER) Negative Negative (test code = 466) UROBILINOGEN UA (BEAKER) (test 2.0 mg/dL 0.2-1.0 H code = 463) RBC UA (BEAKER) (test code = 2 /HPF 519) WBC UA (BEAKER) (test code = 3 /HPF 520) SQUAMOUS EPITHELIAL (BEAKER) 1 /HPF (test code = 516) SOURCE(BEAKER) (test code = 2795) RAPID DRUG SCREEN, [id number] 00:14:00 Test Item Value Reference Range Interpretation Comments BARBITURATE URINE (BEAKER) (test Negative Negative code = 725) BENZODIAZEPINE SCREEN URINE (BEAKER) Negative Negative (test code = 726) COCAINE (METAB.) SCREEN (BEAKER) Negative Negative (test code = 1164) METHADONE SCREEN (BEAKER) (test code Negative Negative = 1436) OPIATE SCREEN URINE (BEAKER) (test Positive Negative A code = 734) CANNABINOID SCREEN URINE (BEAKER) Negative Negative (test code = 727) AMPH/METHAMPH SCREEN (BEAKER) (test Negative Negative code = 1438) PHENCYCLIDINE SCREEN URINE (BEAKER) Negative Negative (test code = 608) OXYCODONE SCREEN URINE (BEAKER) Negative Negative (test code = 2761) DRUG CUTOFF CONC.Cocaine 300 ng/mL Cannabinoid 50 ng/mL Benzodiazepine 200 ng/mLBarbiturate 200 ng/mLPhencyclidine 25 ng/mLOpiate 300 ng/mLMethadone 300 ng/mLAmphetamine/ 1000 ng/mL MethamphetamineOxycodone 300 ng/mLThis assay provides an unconfirmed qualitative test result for the clinical management of patients in emergency situations. Chain of custody not maintained. Some xtzi-ayv-eaathnu medications, as well as adulterants, may cause inaccurate results. Clinical correlation should be applied. Kamila comprehensive drug screen or confirmation of a detected drug may be performed upon request.POCT-GLUCOSE [id number] 23:37:00 Test Item Value Reference Range Interpretation Comments POC-GLUCOSE METER 119 mg/dL 70-110 H TESTED AT [facility] [address] ([facility]) (test code = YEIMY [place] 1538) [address] CBC W/PLT COUNT & AUTO [id number] 22:58:00 Test Item Value Reference Range Interpretation Comments WHITE BLOOD CELL COUNT (BEAKER) 12.8 K/ L 3.5-10.5 H (test code = 775) RED BLOOD CELL COUNT (BEAKER) 5.17 M/ L 4.63-6.08 (test code = 761) HEMOGLOBIN (BEAKER) (test code = 14.9 GM/DL 13.7-17.5 410) HEMATOCRIT (BEAKER) (test code = 44.8 % 40.1-51.0 411) MEAN CORPUSCULAR VOLUME (BEAKER) 86.7 fL 79.0-92.2 (test code = 753) MEAN CORPUSCULAR HEMOGLOBIN 28.8 pg 25.7-32.2 (BEAKER) (test code = 751) MEAN CORPUSCULAR HEMOGLOBIN CONC 33.3 GM/DL 32.3-36.5 (BEAKER) (test code = 752) RED CELL DISTRIBUTION WIDTH 14.4 % 11.6-14.4 (BEAKER) (test code = 412) PLATELET COUNT (BEAKER) (test 163 K/CU MM 150-450 code = 756) MEAN PLATELET VOLUME (BEAKER) 9.7 fL 9.4-12.4 (test code = 754) NUCLEATED RED BLOOD CELLS 0 /100 WBC 0-0 (BEAKER) (test code = 413) NEUTROPHILS RELATIVE PERCENT 84 % (BEAKER) (test code = 429) LYMPHOCYTES RELATIVE PERCENT 7 % (BEAKER) (test code = 430) MONOCYTES RELATIVE PERCENT 8 % (BEAKER) (test code = 431) EOSINOPHILS RELATIVE PERCENT 0 % (BEAKER) (test code = 432) BASOPHILS RELATIVE PERCENT 0 % (BEAKER) (test code = 437) NEUTROPHILS ABSOLUTE COUNT 10.79 K/ L 1.78-5.38 H (BEAKER) (test code = 670) LYMPHOCYTES ABSOLUTE COUNT 0.91 K/ L 1.32-3.57 L (BEAKER) (test code = 414) MONOCYTES ABSOLUTE COUNT (BEAKER) 1.01 K/ L 0.30-0.82 H (test code = 415) EOSINOPHILS ABSOLUTE COUNT 0.00 K/ L 0.04-0.54 L (BEAKER) (test code = 416) BASOPHILS ABSOLUTE COUNT (BEAKER) 0.02 K/ L 0.01-0.08 (test code = 417) IMMATURE GRANULOCYTES-RELATIVE 1 % 0-1 PERCENT (BEAKER) (test code = 2801) (MANUAL DIFFERENTIAL)[id number] 22:58:00 Test Item Value Reference Range Interpretation Comments NEUTROPHILS - REL (DIFF) (BEAKER) 86 % (test code = 1359) LYMPHOCYTES - REL (DIFF) (BEAKER) 4 % (test code = 1360) MONOCYTES - REL (DIFF) (BEAKER) 7 % (test code = 1361) BANDS - REL (DIFF) (BEAKER) (test 3 % 0-10 code = 1348) NEUTROPHILS - ABS (DIFF) (BEAKER) 11.01 K/ L 1.80-8.00 H (test code = 1365) LYMPHOCYTES - ABS (DIFF) (BEAKER) 0.51 K/ L 1.48-4.50 L (test code = 1366) MONOCYTES - ABS (DIFF) (BEAKER) 0.90 K/ L 0.00-1.30 (test code = 1367) BANDS-ABS (DIFF) (BEAKER) (test 0.4 K/ L 0.0-0.8 code = 1349) TOTAL COUNTED (BEAKER) (test code 100 = 1351) BANDS + SEGMENTED NEUTROPHILS 11.39 (BEAKER) (test code = 1352) WBC MORPHOLOGY (BEAKER) (test code Normal = 487) PLT MORPHOLOGY (BEAKER) (test code Normal = 486) RBC MORPHOLOGY (BEAKER) (test code Normal = 762) HIV-1 ANTIGEN WITH HIV-1/2 [id number] 22:55:00 Test Item Value Reference Range Interpretation Comments HIV-1 ANTIGEN WITH HIV 1\T\2 Nonreactive Nonreactive ANTIBODY (2) (BEAKER) (test code = 2586) HEPATIC FUNCTION [id number] 22:34:00 Test Item Value Reference Range Interpretation Comments TOTAL PROTEIN (BEAKER) 9.5 gm/dL 6.0-8.3 H Speci men slightly (test code = 770) hemolyzed ALBUMIN (BEAKER) (test 3.5 g/dL 3.5-5.0 Speci men slightly code = 1145) hemolyzed BILIRUBIN TOTAL 1.7 mg/dL 0.2-1.2 H Specimen sli ghtly (BEAKER) (test code = hemoly zed 377) BILIRUBIN DIRECT 0.6 mg/dL 0.1-0.5 H Specimen sl ightly (BEAKER) (test code = hemoly zed 706) ALKALINE PHOSPHATASE 88 U/L 40-150 (BEAKER) (test code = 346) AST (SGOT) (BEAKER) 50 U/L 5-34 H Specimen slightly (test code = 353) hemolyzed ALT (SGPT) (BEAKER) 21 U/L 6-55 Specimen slightly (test code = 347) hemolyzed [id number] 22:34:00 Test Item Value Reference Range Interpretation Comments CALCIUM (BEAKER) (test code = 697) 8.7 mg/dL 8.4-10.2 BASIC METABOLIC [id number] 22:34:00 Test Item Value Reference Range Interpretation Comments SODIUM (BEAKER) 132 meq/L 136-145 L (test code = 381) POTASSIUM (BEAKER) 3.6 meq/L 3.5-5.1 Specimen slightly (test code = 379) hemolyzed CHLORIDE (BEAKER) 99 meq/L 98-107 (test code = 382) CO2 (BEAKER) (test 21 meq/L 22-29 L code = 355) BLOOD UREA NITROGEN 5 mg/dL 7-21 L (BEAKER) (test code = 354) CREATININE (BEAKER) 0.75 mg/dL 0.57-1.25 Specimen slightly (test code = 358) hemolyzed GLUCOSE RANDOM 126 mg/dL 70-105 H (BEAKER) (test code = 652) CALCIUM (BEAKER) 8.7 mg/dL 8.4-10.2 (test code = 697) EGFR (BEAKER) (test 135 mL/min/1.73 ESTIM ATED GFR IS code = 1092) sq m NOT ACCURATE CREATININE CLEARANCE IN PREDICTING GLOMERULAR FILTRATION RATE . ESTIMATED GFR I S NOT APPLICABLE FOR DIALYSIS PATIEN TS. [id number] 22:34:00 Test Item Value Reference Range Interpretation Comments LIPASE (BEAKER) (test code = 749) 716 U/L 8-78 H [id number] 22:34:00 Test Item Value Reference Range Interpretation Comments MAGNESIUM (BEAKER) 1.8 mg/dL 1.6-2.6 Specimen slightly (test code = 627) hemolyzed LIPID [id number] 22:34:00 Test Item Value Reference Range Interpretation Comments TRIGLYCERIDES (BEAKER) 60 mg/dL Speci men slightly (test code = 540) hemolyzed CHOLESTEROL (BEAKER) 168 mg/dL Specime n slightly (test code = 631) hemolyzed HDL CHOLESTEROL (BEAKER) 61 mg/dL (test code = 976) LDL CHOLESTEROL 95 mg/dL CALCULATED (BEAKER) (test code = 633) Triglyceride Reference Range: Low Risk <150 Borderline 150-199 High Risk 200- 499 Very High Risk >=500Cholesterol Reference Range: Low Risk <200 Borderline 200-239 High Risk >240HDL Cholesterol Reference Range: Low Risk >=60 High Risk <40LDL Cholesterol Reference Range: Optimal <100 Near Optimal 100-129 Borderline 130-159 High 160-189 Very High >=190PT/APTT 2017-08-01 22:25:00 Test Item Value Reference Range Interpretation Comments PROTIME (BEAKER) (test code = 16.4 seconds 11.7-14.7 H 759) INR (BEAKER) (test code = 370) 1.3 <=5.9 PARTIAL THROMBOPLASTIN TIME 33.3 seconds 22.5-36.0 (BEAKER) (test code = 760) RECOMMENDED COUMADIN/WARFARIN INR THERAPY RANGESSTANDARD DOSE: 2.0 - 3.0 Includes: PROPHYLAXIS for venous thrombosis, systemic embolization; TREATMENT for venous thrombosis and/or pulmonary embolus.HIGH RISK: Target INR is 2.5-3.5 for patients with mechanical heart valves.
[2022-01-30 14:31] LABS: Absolute Lymphocytes (CBC) 0.8 K/uL (0.7-4.9); Hematocrit 40.9 % (39.6-49.0); Lymphocytes % 15.8 % (15.3-44.8); MCV 85.8 fL (80-100); MPV 6.6 fL (7.6-11.3); RBC Red Blood Cell Count 4.76 M/uL (4.33-5.43)
[2022-01-30 14:38] LABS: Protime INR 1.04
--- NOTE | 2022-01-30 14:45 | RAD REPORT ---
EXAM DESCRIPTION: CT - Head Brain Wo Cont - 01/30/2022 2:28 pm CLINICAL HISTORY: Alteration of awareness/confusion COMPARISON: None TECHNIQUE: Computed axial tomography of the head was obtained. IV contrast was not requested. All CT scans are performed using dose optimization technique as appropriate and may include automated exposure control or mA/KV adjustment according to patient size. FINDINGS: An intracranial bleed is not seen . The ventricles are normal in caliber. No extra-axial fluid collection is noted. No significant hypodensity within the brain Fluid within the sinuses/ mastoids is not seen. IMPRESSION: No acute intracranial abnormality is seen. If patient's symptoms persist MRI of the bra in would be recommended.
--- NOTE | 2022-01-30 14:49 | RAD REPORT ---
EXAM DESCRIPTION: Hiral Single View01/30/2022 2:24 pm CLINICAL HISTORY: Hypertension/alteration of consciousness COMPARISON: none FINDINGS: The lungs appear clear of acute infiltrate. The heart is normal size IMPRESSION: No acute abnormalities displayed
[2022-01-30 14:56] LABS: ALT/SGPT 34 U/L (12-78); AST/SGOT 46 U/L (15-37); Albumin 4.1 g/dL (3.4-5.0); Alkaline Phosphatase 107 U/L (45-117); Bicarbonate 27 mmol/L (21-32); Bilirubin Direct 0.2 mg/dL (0-0.2); Bilirubin Total 0.5 mg/dL (0.2-1.0); Glomerular Filtration Rate 110 ml/min (=/>90); Glucose Level 108 mg/dL (74-106); Magnesium 1.8 mg/dL (1.8-2.4); NT PRO-BNP 53 pg/mL (<125); Potassium 3.6 mmol/L (3.5-5.1); Protein, Total 10.1 g/dL (6.4-8.2); Sodium Level 121 mmol/L (136-145); Troponin High Sensitivity 5.2 pg/mL (<58.9)
[2022-01-30 15:08] LABS: BUN Blood Urea Nitrogen < 3 mg/dL (7-18)
--- NOTE | 2022-01-30 15:20 | ER ---
Nurse's Notes [facility] Name: Brigido Burgess Age: 51 yrs Sex: Male : 1970 Arrival Date: 01/30/2022 Time: 13:56 Bed 30 Private MD: Diagnosis: Drug-induced hypoglycemia without coma;Hypo-osmolality and hyponatremia Presentation: 01/30 14:02 Note provider SHELTON Cash at bedside at this time. tw2 14:03 Chief complaint: EMS states: they were called to the patients home for altered mental ap3 status. it is reported that when EMS arrived on scene the patients FSBS was 23. they administered D10, and FSBS recovered to 156. Patient became A/O X's 4, and was ambulatory with the recovery in blood sugar. Coronavirus screen: At this time, the client does not indicate any symptoms associated with coronavirus-19. Ebola Screen: No symptoms or risks identified at this time. Initial Sepsis Screen: Does the patient meet any 2 criteria? No. Patient's initial sepsis screen is negative. Does the patient have a suspected source of infection? No. Patient's initial sepsis screen is negative. Risk Assessment: Do you want to hurt yourself or someone else? Patient reports no desire to harm self or others. Onset of symptoms was January 30, 2022. 14:03 Method Of Arrival: EMS: [facility] ap3 14:03 Acuity: SIDRA 3 ap3 Triage Assessment: 14:08 General: Appears in no apparent distress. Behavior is calm, cooperative, appropriate ap3 for age. Pain: Denies pain. Neuro: Level of Consciousness is awake, alert, obeys commands, Oriented to person, place, time, situation, Gait is steady, Speech is normal, Facial symmetry appears normal. Cardiovascular: Patient's skin is warm and dry. Respiratory: Airway is patent Respiratory effort is even, unlabored, Respiratory pattern is regular, symmetrical. Historical: - Allergies: 14:06 No Known Allergies; ap3 - Home Meds: 14:06 Metformin Oral [Active]; Hydrochlorothiazide Oral [Active]; Glimepiride Oral [Active]; ap3 Folic Acid Oral [Active]; Unithroid oral [Active]; Metoprolol Tartrate Oral [Active]; amlodipine oral [Active]; losartan oral [Active]; - PMHx: 14:06 Diabetes - NIDDM; Hypertension; ap3 - Immunization history:: Client reports receiving the 2nd dose of the Covid vaccine. - Social history:: Smoking status: Patient denies any tobacco usage or history of. Screenin:02 Abuse screen: Denies threats or abuse. Nutritional screening: No deficits noted. tw2 Tuberculosis screening: No symptoms or risk factors identified. Fall Risk None identified. Assessment: 14:08 Reassessment: xray at bedside at this time. tw2 Vital Signs: 14:01 Pulse 71; Resp 17; Temp 97.7(O); Pulse Ox 100% on R/A; Weight 99.79 kg; tw2 14:07 BP 156 / 90; tw2 ED Course: 13:56 Patient arrived in ED. em1 13:57 Nino Quintero PA is PHCP. cp 13:57 Ramirez Todd DO is Attending Physician. cp 14:02 Arm band placed on. tw2 14:02 Call light in reach. Side rails up X 1. satellite project site monitor on. Pulse ox on. NIBP on. Warm tw2 blanket given. 14:06 Triage completed. ap3 14:09 Cristina Calderón, RN is Primary Nurse. ap3 14:25 XRAY Chest (1 view) In Process Unspecified. EDMS 14:29 CT Head Brain wo Cont In Process Unspecified. EDMS 15:19 Veronica Reyes MD is Hospitalizing Provider. cp Administered Medications: 17:00 Discontinued: NS 0.9% 1000 ml IV at 1 bolus Per protocol; 1000 mL bolus ap3 16:22 Drug: NS 0.9% 1000 ml Route: IV; Rate: 1 bolus; Site: left antecubital; ap3 17:00 Follow up: Response: No adverse reaction; IV Status: Completed infusion ap3 16:22 Drug: D50W 50 ml {Note: administered as [id number].} Route: IVP; Site: left antecubital;ap3 Medication: 14:08 VIS not applicable for this client. ap3 Outcome: 15:19 Decision to Hospitalize by Provider. cp 20:19 Admitted to Tele accompanied by tech, via wheelchair, room 413, with chart. jb4 20:19 Condition: stable 20:19 Discharge instructions given to patient, Instructed on the need for admit, Demonstrated understanding of instructions. 20:19 Patient left the ED. jb4 Signatures: Dispatcher [employer] Albert Hopkins em1 Nino Quintero PA PA cp Wise, Tara RN RN tw2 Michael Howe RN RN jb4 Cristina Calderón RN RN ap3
--- NOTE | 2022-01-30 15:20 | EDPHYS ---
Physician Documentation [facility] Name: Brigido Burgess Age: 51 yrs Sex: Male : 1970 Arrival Date: 01/30/2022 Time: 13:56 Bed 30 Private MD: ED Physician Ramirez Todd HPI: 01/30 14:05 This 51 yrs old Black Male presents to ER via EMS with complaints of Low Blood Sugar. cp 14:05 The patient or guardian reports hypoglycemia, that was potentially precipitated by no cp particular event, with the patient's symptoms witnessed by family, Treatment prior to arrival includes: EMS 10% dextrose in 250 mL. Associated signs and symptoms: Pertinent positives: altered mental status. Current symptoms: In the emergency department the patient's symptoms have improved, markedly, is less confused. 14:05 Review of medication list indicates patient takes oral Metformin and Glimepiride . cp Historical: - Allergies: 14:06 No Known Allergies; ap3 - Home Meds: 14:06 Metformin Oral [Active]; Hydrochlorothiazide Oral [Active]; Glimepiride Oral [Active]; ap3 Folic Acid Oral [Active]; Unithroid oral [Active]; Metoprolol Tartrate Oral [Active]; amlodipine oral [Active]; losartan oral [Active]; - PMHx: 14:06 Diabetes - NIDDM; Hypertension; ap3 - Immunization history:: Client reports receiving the 2nd dose of the Covid vaccine. - Social history:: Smoking status: Patient denies any tobacco usage or history of. ROS: 14:10 Constitutional: Negative for body aches, chills, fever, poor PO intake. cp 14:10 Cardiovascular: Negative for chest pain, palpitations. cp 14:10 Respiratory: Negative for cough, shortness of breath, wheezing. 14:10 Abdomen/GI: Negative for abdominal pain, nausea, vomiting, and diarrhea, black/tarry cp stool, rectal bleeding. 14:10 : Negative for urinary symptoms. 14:10 Neuro: Positive for altered mental status, Negative for headache, loss of consciousness, syncope. 14:10 All other systems are negative. Exam: 14:15 Constitutional: The patient appears in no acute distress, alert, awake, cp non-diaphoretic, non-toxic, well developed, well nourished. 14:15 Head/Face: Normocephalic, atraumatic. cp 14:15 Eyes: Periorbital structures: appear normal, Pupils: equal, round, and reactive to light and accomodation, Extraocular movements: intact throughout, Conjunctiva: normal, no exudate, no injection, Sclera: no appreciated abnormality, Lids and lashes: appear normal, bilaterally. 14:15 ENT: External ear(s): are unremarkable, Nose: is normal, Mouth: Lips: moist, Oral mucosa: pink and intact, moist, Posterior pharynx: Airway: no evidence of obstruction, patent, swelling, is not appreciated, erythema, is not appreciated, exudate, is not appreciated. 14:15 Neck: ROM/movement: is normal, is supple, without pain, no range of motions limitations, no meningismus. 14:15 Chest/axilla: Inspection: normal. 14:15 Cardiovascular: Rate: normal, Rhythm: regular, Edema: is not appreciated, JVD: is not appreciated. 14:15 Respiratory: the patient does not display signs of respiratory distress, Respirations: normal, no use of accessory muscles, no retractions, labored breathing, is not present, Breath sounds: are clear throughout, no decreased breath sounds, no stridor, no wheezing. 14:15 Abdomen/GI: Inspection: abdomen appears normal, Palpation: abdomen is soft and non-tender, in all quadrants. 14:15 Neuro: Orientation: to person, place \T\ time. Mentation: able to follow commands, slow to respond, Cerebellar function: is grossly normal, Motor: moves all fours, strength is normal, Sensation: is normal. Vital Signs: 14:01 Pulse 71; Resp 17; Temp 97.7(O); Pulse Ox 100% on R/A; Weight 99.79 kg; tw2 14:07 BP 156 / 90; tw2 MDM: 13:57 Patient medically screened. ms3 15:15 Data reviewed: vital signs, nurses notes, lab test result(s), EKG, radiologic studies, cp CT scan, plain films, I have discussed the patient's presentation/case with the attending Emergency Department Physician; and as a result, I will admit patient. 15:18 Physician consultation: Veronica Reyes MD was contacted at 15:15, regarding admission, cp to the telemetry unit. patient's condition, and will see patient in ED, immediately. 01/30 14:04 Order name: Basic Metabolic Panel; Complete Time: 15:12 01/30 15:12 Interpretation: Abnormal: NA 121; CL 83; GLUC 108; BUN < 3. 01/30 14:04 Order name: CBC with Diff; Complete Time: 14:57 01/30 14:58 Interpretation: Normal except: RDW 12.0; MPV 6.6; JOSEPH% 76.3. 01/30 14:04 Order name: LFT's; Complete Time: 15:12 01/30 14:04 Order name: Magnesium; Complete Time: 15:12 01/30 14:04 Order name: NT PRO-BNP; Complete Time: 15:12 01/30 14:04 Order name: PT-INR; Complete Time: 14:57 01/30 14:04 Order name: Troponin HS; Complete Time: 15:12 01/30 14:36 Order name: Glucose, Ancillary Testing; Complete Time: 14:57 EDHI 01/30 14:58 Interpretation: Abnormal: GLUC,ANCIL 121. 01/30 15:32 Order name: CBC with Automated Diff EDHI 01/30 15:32 Order name: CBC with Automated Diff; Complete Time: 11:24 EDHI 01/30 15:32 Order name: Comprehensive Metabolic Panel EDHI 01/30 15:32 Order name: Comprehensive Metabolic Panel; Complete Time: 11:24 EDMS 01/30 15:32 Order name: Hemoglobin A1c EDHI 01/30 15:32 Order name: Hemoglobin A1c; Complete Time: 11:24 EDHI 01/30 14:04 Order name: XRAY Chest (1 view); Complete Time: 14:57 01/30 14:04 Order name: EKG; Complete Time: 14:04 01/30 14:04 Order name: EKG - Nurse/Tech; Complete Time: 14:25 01/30 14:04 Order name: IV Saline Lock; Complete Time: 14:25 01/30 14:04 Order name: Labs collected and sent; Complete Time: 14:25 01/30 14:04 Order name: O2 Per Protocol; Complete Time: 14:07 01/30 14:04 Order name: CT Head Brain wo Cont; Complete Time: 14:57 01/30 14:14 Order name: Diet Regular; Complete Time: 14:15 cp 01/30 15:33 Order name: Basic Metabolic Panel; Complete Time: 11:24 EDMS 01/30 15:41 Order name: SARS RAPID cp 01/30 16:34 Order name: SARS-COV-2 Antigen Rapid; Complete Time: 11:24 EDMS 01/30 17:39 Order name: Glucose, Ancillary Testing; Complete Time: 11:24 EDMS 01/30 19:33 Order name: Glucose, Ancillary Testing; Complete Time: 11:24 EDMS 01/30 14:04 Order name: O2 Sat Monitoring; Complete Time: 14:07 cp Administered Medications: 17:00 Discontinued: NS 0.9% 1000 ml IV at 1 bolus Per protocol; 1000 mL bolus ap3 16:22 Drug: NS 0.9% 1000 ml Route: IV; Rate: 1 bolus; Site: left antecubital; ap3 17:00 Follow up: Response: No adverse reaction; IV Status: Completed infusion ap3 16:22 Drug: D50W 50 ml {Note: administered as [id number].} Route: IVP; Site: left antecubital;ap3 Disposition: 01/31 11:24 Co-signature as Attending Physician, Ramirez FORTUNE was immediately available on-site ms3 in the Emergency Department for consultation in the care of the patient. . Disposition Summary: 01/30/22 15:19 Hospitalization Ordered Hospitalization Status: Observation cp Provider: Veronica Reyes cp Location: Telemetry/[facility] (observation) cp Condition: Stable cp Problem: new cp Symptoms: have improved cp Bed/Room Type: Standard cp Room Assignment: 413(01/30/22 18:38) dw Diagnosis - Drug-induced hypoglycemia without coma cp - Hypo-osmolality and hyponatremia cp Discharge Instructions: - Discharge Summary Sheet tw2 Forms: - Medication Reconciliation Form cp - Work release form tw2 - SBAR form cp Signatures: Dispatcher [employer] Radha Rai RN RN Nino Costa PA PA cp Prokisch, Amanda, RN RN ap3 Ramirez Todd DO DO ms3 Corrections: (The following items were deleted from the chart) 01/30 18:38 15:19 cp dw
[2022-01-30] MEDS ORDERED: ONDANSETRON 4 MG/2 ML VIAL IV PRN (15:28)
[2022-01-30] MEDS ORDERED: MORPHINE 4 MG/ML SYR IV PRN (15:28)
[2022-01-30] MEDS ORDERED: ACETAMINOPHEN 500 MG TAB PO PRN (15:28)
--- NOTE | 2022-01-30 15:28 | P.HP ---
Certification for Inpatient Patient admitted to: Observation With expected LOS: <2 Midnights Patient will require the following post-hospital care: None Practitioner: I am a practitioner with admitting privileges, knowledge of patient current condition, hospital course, and medical plan of care. Services: Services provided to patient in accordance with Admission requirements found in Title 42 Section 412.3 of the Code of Federal Regulations Patient History Date of Service: 01/30/22 Reason for admission: Hypoglycemia; hyponatremia History of Present Illness: Patient is a 51-year-old gentleman who had been doing well up until this morning when he started having slurred speech. Patient's was concerned for him and she called a family member who called EMS. Patient is actually on large doses of Amaryl. He is taking 80 mg daily. We will go ahead and discontinue this. Patient was also found to have hyponatremia. He is on hydrochlorothiaz lew. We will also discontinue this. He has lost about 20 pounds over the last few months. He is trying to eat better. We will go ahead and DC his Amaryl and switch him over to metformin. DC his hydrochlorothiazide. Monitor his blood sugars and blood pressure overnight and if he does well anticipate discharge in the morning. Allergies No Known Allergies Allergy (Unverified 12/05/11 00:23) Home Medications: Amlodipine Besylate 1 tab PO DAILY 01/30/22 Folic Acid 1 tab PO DAILY 01/30/22 Glimepiride 2 tab PO DAILY 01/30/22 Levothyroxine Sodium [Unithroid] 150 mcg PO DAILY 01/30/22 Losartan Potassium 100 mg PO DAILY 01/30/22 Metformin ER [Glucophage ER] 1,000 mg PO BID 01/30/22 Metoprolol Tartrate 1 tab PO BID 01/30/22 hydroCHLOROthiazide [Hydrochlorothiazide] 1 tab PO DAILY 01/30/22 - Past Medical/Surgical History Diabetic: No -: Diabetes type 2 -: Hypertension -: Hypothyroid Past Surgical History: Patient denies surgical history - Family History Father Family History: Reviewed- Non-Contributory - Social History Smoking Status: Former smoker Alcohol use: Yes CD- Drugs: No Caffeine use: Yes Review of Systems 10-point ROS is otherwise unremarkable Physical Examination - Vital Signs Temperature: 98 F Blood Pressure: 140/80 Pulse: 88 Respirations: 18 Pulse Ox (%): 95 - Physical Exam General: Alert, In no apparent distress, Oriented x3 HEENT: Atraumatic, PERRLA, Mucous membr. moist/pink, EOMI, Sclerae nonicteric Neck: Supple, 2+ carotid pulse no bruit, No LAD, Without JVD or thyroid abnormality Respiratory: Clear to auscultation bilaterally, Normal air movement Cardiovascular: Regular rate/rhythm, Normal S1 S2, No murmurs Gastrointestinal: Normal bowel sounds, Soft and benign, Non-distended, No tenderness Musculoskeletal: No clubbing, No swelling, No tenderness Integumentary: No rashes Neurological: Normal gait, Normal speech, Normal strength at 5/5 x4 extr, Normal tone, Sensation intact, Cranial nerves 3-12 intact, Normal affect Lymphatics: No axilla or inguinal lymphadenopathy - Studies Laboratory Data (last 24 hrs) 01/30/22 14:21: PT 11.5, INR 1.04 01/30/22 14:21: WBC 5.10, Hgb 14.5, Hct 40.9, Plt Count 205 01/30/22 14:21: Sodium 121 L, Potassium 3.6, BUN < 3 L, Creatinine 0.71, Glucose 108 H, Magnesium 1.8, Total Bilirubin 0.5, AST 46 H, ALT 34, Alkaline Phosphatase 107 Assessment & Plan - Problems (Diagnosis) (1) Hypoglycemia Current Visit: Yes Status: Acute (2) Hyponatremia Current Visit: Yes Status: Acute (3) HTN (hypertension) Current Visit: Yes Status: Acute (4) DM2 (diabetes mellitus, type 2) Current Visit: Yes Status: Acute (5) Hypothyroid Current Visit: Yes Status: Acute - Plan Plan: 1. DC hydrochlorothiazide and Amaryl 2. Check hemoglobin A1c 3. Normal saline at 100 cc an hour and repeat shows a metabolic profile 4. Diabetic diet 5. Out of bed and ambulate 6. GI and DVT prophylaxis Anticipate discharge in the morning if patient's blood sugars and sodium level is stable. Discharge Plan: Home Plan to discharge in: 24 Hours - Advance Directives Does patient have a Living Will: No Does patient have a Durable POA for Healthcare: No - Code Status/Comfort Care Code Status Assessed: Yes Code Status: Full Code Critical Care: No Time Spent Managing PTS Care (In Minutes): 45
[2022-01-30] MEDS: D5 0.9 NS 1,000 ML IV SCH (16:00)
[2022-01-30] MEDS ORDERED: D5W 1,000 ML IV SCH (16:00)
[2022-01-30] MEDS ORDERED: NA CHLORIDE 0.9% 1,000 ML ONE (16:20)
[2022-01-30] MEDS ORDERED: DEXTROSE 10%-WATER 500 ML IV ONE (16:20)
[2022-01-30 16:34] LABS: SARS-CoV-2 Antigen Rapid Res Negative (Negative)
[2022-01-30 16:48] VITALS: BMI 29.8
[2022-01-30] MEDS ORDERED: D5 0.9 NS 1,000 ML IV ONE (17:03)
[2022-01-30 20:27] LABS: Potassium 4.3 mmol/L (3.5-5.1)
[2022-01-31] MEDS ORDERED: BENZONATATE 100 MG CAP PO PRN (00:51)
[2022-01-31] MEDS: D5 0.9 NS 1,000 ML IV SCH (05:45)
[2022-01-31 06:51] LABS: Absolute Lymphocytes (CBC) 1.1 K/uL (0.7-4.9); Hematocrit 35.1 % (39.6-49.0); Lymphocytes % 25.1 % (15.3-44.8); MPV 6.9 fL (7.6-11.3); RBC Red Blood Cell Count 4.14 M/uL (4.33-5.43)
[2022-01-31 07:08] LABS: Albumin 3.4 g/dL (3.4-5.0); Bilirubin Total 1.2 mg/dL (0.2-1.0); Potassium 3.9 mmol/L (3.5-5.1); Protein, Total 8.3 g/dL (6.4-8.2)
[2022-01-31] MEDS ORDERED: GLIPIZIDE S.A. 5 MG TAB PO SCH (08:00)
[2022-01-31 08:20] VITALS: BP 164/82; TEMP 98.2
--- NOTE | 2022-01-31 08:51 | P.DS ---
Admission Date: 01/30/22 Discharge Date: 01/31/22 Disposition: ROUTINE DISCHARGE Discharge Condition: GOOD Reason for Admission: Hypoglycemia; hyponatremia Brief History of Present Illness: Patient is 51 years of age admitted with acute onset of shaking sweating dizziness and was found to have heart hypoglycemia and hyponatremia did well during the course of his stay and was on hydrochlorothiazide and Glimiperide Hospital Course: Patient did well during the course of his stay his hydrochlorothiazide glimepiride was discontinued to follow-up with his primary care physician to review his diabetic medication labs reviewed hemoglobin A1c was 7 The time of discharge alert oriented responsive cooperative no new complaints Vital Signs/Physical Exam: Temp Pulse Resp BP Pulse Ox 98.2 F 87 16 164/82 H 96 01/31/22 08:00 01/31/22 08:00 01/31/22 08:00 01/31/22 08:00 01/31/22 08:00 Laboratory Data at Discharge: WBC 4.20 K/uL (4.3-10.9) L D 01/31/22 06:23 Hgb 12.5 g/dL (13.6-17.9) L 01/31/22 06:23 Hct 35.1 % (39.6-49.0) L 01/31/22 06:23 Plt Count 182 K/uL (152-406) 01/31/22 06:23 PT 11.5 SECONDS (9.5-12.5) 01/30/22 14:21 INR 1.04 01/30/22 14:21 Sodium 127 mmol/L (136-145) L 01/31/22 06:23 Potassium 3.9 mmol/L (3.5-5.1) 01/31/22 06:23 BUN 4 mg/dL (7-18) L 01/31/22 06:23 Creatinine 0.70 mg/dL (0.55-1.3) 01/31/22 06:23 Glucose 190 mg/dL (74-106) H 01/31/22 06:23 Magnesium 1.8 mg/dL (1.8-2.4) 01/30/22 14:21 Total Bilirubin 1.2 mg/dL (0.2-1.0) H 01/31/22 06:23 AST 27 U/L (15-37) 01/31/22 06:23 ALT 25 U/L (12-78) 01/31/22 06:23 Alkaline Phosphatase 87 U/L (45-117) 01/31/22 06:23 Home Medications: Amlodipine Besylate 1 tab PO DAILY 01/30/22 Folic Acid 1 tab PO DAILY 01/30/22 Levothyroxine Sodium [Unithroid] 150 mcg PO DAILY 01/30/22 Losartan Potassium 100 mg PO DAILY 01/30/22 Metformin ER [Glucophage ER*] 1,000 mg PO BID 01/30/22 Metoprolol Tartrate 1 tab PO BID 01/30/22 Sitagliptin Phosphate [Januvia] 50 mg PO DAILY #30 01/31/22 New Medications: Sitagliptin Phosphate [Januvia] 50 mg PO DAILY #30 Physician Discharge Instructions: Patient to discontinue hydrochlorothiazide and glimiperide OK TO DC IV AND DC HOME FOLLOW-UP WITH PRIMARY CARE PROVIDER IN 1-2 WEEKS RETURN TO THE ER IF symptoms worsens CALL DR. OLEARY AT [phone] IF ANY QUESTIONS REGARDING HOSPITAL STAY. PLEASE CALL THE FLOOR AT [phone] IF ANY MEDICATION OR NURSING QUESTIONS. Diet: ADA Activity: Fall precautions Followup: VARUN ARROYO [Primary Care Provider] -
[2022-01-31] MEDS ORDERED: FOLIC ACID 1 MG TABLET PO SCH (09:00)
[2022-01-31] MEDS ORDERED: ALOGLIPTIN BENZOATE 12.5 MG TABLET PO SCH (09:00)
[2022-01-31] MEDS ORDERED: METOPROLOL TAR 50 MG TAB PO SCH (09:00)
[2022-01-31] MEDS ORDERED: METFORMIN ER 500 MG TAB PO SCH (09:00)
[2022-01-31] MEDS ORDERED: AMLODIPINE 10 MG TAB PO SCH (09:00)
[2022-01-31] MEDS ORDERED: LOSARTAN POTASSIUM 50 MG TABLET PO SCH (09:00)
[2022-01-31] MEDS ORDERED: LEVOTHYROXINE SOD 0.075 MG TAB PO SCH (09:00)
[2022-01-31 10:22] VITALS: O2SAT 96
--- NOTE | 2022-02-01 15:23 | EKG ---
Test Date: 2022-01-30 Test Time: 14:19:13 [employer] Analyst: ALP MEASUREMENT RESULTS: Intervals: Rate: 65 PA: 190 QRSD: 86 QT: 438 QTc: 455 [place]: P: 62 PA: 190 QRS: 22 T: 51 INTERPRETIVE STATEMENTS: Normal sinus rhythm Normal ECG Compared to ECG 08/01/2017 13:40:22 Sinus tachycardia no longer present ST (T wave) deviation no longer present Electronically Signed On 02-01-22 15:20:20 CDT by David Kim
== END 2022-01-31 11:33 | disposition home or self-care (01) ==
LOC: ER 13:50 → ERHOLD 15:29 → 4TH 19:43
PROVIDERS: ADMIT Hospitalist; ATTEND Internal Medicine Sleep Medicine
DX: E11.649 Type 2 diabetes mellitus with hypoglycemia without coma (principal); E87.1 Hypo-osmolality and hyponatremia; E03.9 Hypothyroidism, unspecified; R47.81 Slurred speech; I10 Essential (primary) hypertension; T50.2X5A Adverse effect of carbonic-anhydrase inhibitors, benzothiadiazides and other diuretics, initial encounter; Z87.891 Personal history of nicotine dependence; Z20.822 Contact with and (suspected) exposure to COVID-19
CPT/HCPCS: 36415; 70450; 71045; 80048; 80053; 80076; 82947; 83036; 83735; 83880; 84484; 85025; 85610; 87811; 93005; 96361; 96374; 99285; G0378; J7030; J7042

== ENCOUNTER 2022-11-28 10:10 | Inpatient (IN) | payer SELFPAY ==
--- OUTSIDE RECORDS SUMMARY | 2022-11-28 10:19 | XMS REPORT | Continuity of Care Document ---
:1970 Author Organization [facility] t Address [address] [facility] [address] [place] [address] Care Team Providers Name Role Phone Perez Zavaleta Primary Care Physician [phone] DR OFELIA CHOWDARY Attending Clinician Unavailable ALEX GARCIA Attending Clinician Unavailable DR OFELIA CHOWDARY Admitting Clinician Unavailable SAAD HOU Admitting Clinician Unavailable Payers Payer Name Policy Type Policy Number Effective Date Expiration Date S sharon 1000 [id number] 1959 00:00:00 Problems Condition Condition Condition Status Onset Resolution Last Treating Co mments Source Name Details Category Date Date Treatment Clinician Date SIRS SIRS Disease Recurre [facility] 00[facility] organ organ 00 Center dysfunctio dysfunctio n due to n due to non-infect non-infect ious ious process process 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 2-26 [facility] vaibhav esposito 00:00: Medical malnutriti malnutriti 00 Ce nter on on Diabetes Diabetes Disease Recurre [facility] mellitus mellitus nce 2[facility] without without 00:00: Medical complicati complicati 00 Ce nter on, on, without without long-term long-term current current use of use of insulin insulin Essential Essential Disease Active [facility] hypertensi hypertensi 2-25 [facility] on on 00:00: Medical 00 Center Alcohol 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 nce 2-25 [facility] 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 00:00: Me dical lindsay lindsay 00 Center dependence dependence Pancreatit Pancreatit Disease Active [facility] is is [facility] 00:[facility]: [facility] 00 Center Allergies, Adverse Reactions, Alerts Allergy Allergy Status Severity Reaction(s) Onset Inactive Treating Comm ents Source Name Type Date Date Clinician No Known DA Active [facility] s Social History Social Habit Start Date Stop Date Quantity Comments Source History of Snuff User [facility] tobacco use Medical [facility] Tobacco Comment 2017-08-01 2017-08-01 4 "dips a day" [facility]00 [facility] Tobacco use and 2017-08-01 2017-08-01 User [facility] smokeless [facility] exposure [facility]00 00:00:00 [facility] Sex Ass[birth year] At [birth year] [facility] [address] Mallory ke 00:00:00 00:00:00 [facility] Smoking Status Start Date Stop Date Source Smokes tobacco daily 2017-08-01 00:00:00 [facility] Medications Ordered Filled Start Stop Current Ordering [...] 1 mg tablet 7-20 00:00: 00 hydrochloro 2022-0 No 1mg thiazide 7-20 12.5 mg 00:00: tablet 00 losartan 2022-0 No 1mg 100 mg 7-20 tablet 00:00: 00 amlodipine 2022-0 No 1mg 10 mg 7-20 tablet 00:00: 00 metformin 2022-0 No 1mg 1,000 mg 7-20 tablet 00:00: 00 glimepiride 2022-0 No 1mg 4 mg tablet 7-20 00:00: 00 metoprolol 2022-0 No 1mg tartrate 50 7-20 mg tablet 00:00: 00 sulfamethox 2022-0 No 1mg azole 800 7-20 mg-trimetho 00:00: prim 160 mg 00 tablet levothyroxi 2022-0 No 1mcg ne 150 mcg 7-20 tablet 00:00: 00 amlodipine 2022-0 No 1mg 10 mg 3-01 tablet 00:00: 00 losartan 2022-0 No 1mg 100 mg 3-01 tablet 00:00: 00 hydrochloro 2022-0 No 1mg thiazide 3-01 12.5 mg 00:00: tablet 00 folic acid 2022-0 No 1mg 1 mg tablet 3-01 00:00: 00 metoprolol 2022-0 No 1mg tartrate [...] 2-01 00:00: 00 Dose 2019-1 No Unknown 2- 00:00: 00 Dose 2019-1 No Unknown 2- 00:00: 00 Dose 2019-1 No Unknown 2- 00:00: 00 Dose 2019-1 No Unknown 2- 00:00: 00 Dose 2019- No Unknown 2-01 00:00: 00 Dose 2019- No Unknown 2- 00:00: 00 Dose 2019- No Unknown 2- 00:00: 00 Dose 2019- No Unknown 2- 00:00: 00 Dose 2019- No Unknown 2- 00:00: 00 Dose 2019- No Unknown 2- 00:00: 00 Dose 2019- No Unknown 2- 00:00: 00 Dose 2019- No Unknown 2- 00:00: 00 Dose 2019- No Unknown 2- 00:00: 00 Dose 2019- No Unknown 2- 00:00: 00 Dose 2019- No Unknown 2- 00:00: 00 losartan 2019- No 1mg 100 mg 0-01 tablet 00:00: 00 hydrochloro 2019-06 No 1mg thiazide 0-01 12.5 mg 00:00: tablet 00 amlodipine 2019-06 No 1mg 5 mg tablet 0-01 00:00: 00 folic acid 2019-06 No 1mg 1 mg tablet 0-01 00:00: 00 glimepiride 2019-06 No 1mg 4 mg tablet 0-01 00:00: 00 metoprolol 2019- No 1mg tartrate 50 0-01 mg tablet 00:00: 00 metformin 2019- No 1mg 1,000 mg 0-01 tablet 00:00: 00 levothyroxi 2019- No 1mcg ne 150 mcg 0-01 tablet 00:00: 00 losartan 2019- No 1mg 100 mg 0-01 tablet 00:00: 00 hydrochloro 2019- No 1mg thiazide 0-01 12.5 mg 00:00: tablet 00 amlodipine 2019- No 1mg 5 mg tablet 0-01 00:00: 00 folic acid 2019- No 1mg 1 mg tablet 0-01 00:00: 00 glimepiride 2019- No 1mg 4 mg tablet 0-01 00:00: 00 metoprolol 2019- No 1mg tartrate 50 0-01 mg tablet 00:00: 00 metformin 2019- No 1mg 1,000 mg 0-01 tablet 00:00: 00 levothyroxi 2019- No 1mcg ne 150 mcg 0-01 tablet 00:00: 00 glimepiride 2019-0 No 1mg 4 mg tablet 6-25 00:00: 00 levothyroxi 2020-0 No 1mcg ne [...] amlodipine 2020-0 No 1mg 5 mg tablet 6-23 00:00: 00 folic acid 2020-0 No 1mg 1 mg tablet 6-23 00:00: 00 losartan 2020-0 No 1mg 100 mg 6-23 tablet 00:00: 00 hydrochloro 2020-0 No 1mg thiazide 6-23 12.5 mg 00:00: tablet 00 metoprolol 2020-0 No 1mg tartrate 50 6-23 mg tablet 00:00: 00 glimepiride 2020-0 No 1mg 1 mg tablet 623 00:00: 00 metformin 2020-0 No 1mg 1,000 mg 6-23 tablet 00:00: 00 glimepiride 2020-0 No 1mg 1 mg tablet 623 00:00: 00 metformin 2020-0 No 1mg 1,000 [...] 00:00: prim 160 mg 00 tablet metoprolol 2019-0 No 1mg tartrate 50 2-18 mg tablet 00:00: 00 metformin 2020-0 No 2mg ER 500 mg 2-18 tablet,exte 00:00: nded 00 release 24 hr glimepiride 2020-0 No 1mg 1 mg tablet 2-18 00:00: 00 levothyroxi 2019-0 No 1mcg ne 125 mcg 2-18 tablet 00:00: 00 hydrochloro 2019-1 No 1mg thiazide 2-17 12.5 mg 00:00: tablet 00 pioglitazon 2018-1 No 1mg e 30 mg 2-17 tablet 00:00: 00 folic acid 2019-1 No 1mg 1 mg tablet 2-17 00:00: 00 losartan 2019-1 No 1mg 100 mg 2-17 tablet 00:00: 00 amlodipine 2019-1 No 1mg 5 mg tablet 2-17 00:00: 00 glimepiride 2019-1 No 1mg 1 mg tablet 2-17 00:00: 00 metformin 2019-1 No 2mg ER 500 mg 2-17 tablet,exte 00:00: nded 00 release 24 hr metoprolol 2019-1 No 1mg tartrate 50 2-17 mg tablet 00:00: 00 levothyroxi 2019-1 No 1mcg ne 125 mcg 2-17 tablet 00:00: 00 hydrochloro 2019-1 No 1mg thiazide 2-17 12.5 mg 00:00: tablet 00 pioglitazon 2019-1 No 1mg e 30 mg 2-17 tablet 00:00: 00 folic acid 2019-1 No 1mg 1 mg tablet 2-17 00:00: 00 losartan 2019-1 No 1mg 100 mg 2-17 tablet 00:00: 00 amlodipine 2019-1 No 1mg 5 mg tablet 2-17 00:00: 00 glimepiride 2019-1 No 1mg 1 mg tablet 2-17 00:00: 00 metformin 2018-1 No 2mg ER 500 mg 2-17 tablet,exte 00:00: nded 00 release 24 hr metoprolol 2018- No 1mg tartrate 50 2-17 mg tablet 00:00: 00 levothyroxi 2018- No 1mcg ne 125 mcg 2-17 tablet 00:00: 00 amlodipine 2018- No 1mg 5 mg tablet 029 00:00: 00 folic acid 2018- No 1mg 1 mg tablet 029 00:00: 00 hydrochloro 2018-1 No 1mg thiazide 0-29 12.5 mg 00:00: tablet 00 metoprolol 2018- No 1mg tartrate 50 0-29 mg tablet 00:00: 00 metformin 2018- No 2mg ER 500 mg 0-29 tablet,exte 00:00: nded 00 release 24 hr glimepiride 2018- No 1mg 1 mg tablet 0 00:00: 00 levothyroxi 2018- No 1mcg ne 125 mcg 0-29 tablet 00:00: 00 amlodipine 2018- No 1mg 5 mg tablet 0 00:00: 00 folic acid 2018- No 1mg 1 mg tablet 029 00:00: 00 hydrochloro 2018- No 1mg thiazide 0-29 12.5 mg 00:00: tablet 00 metoprolol 2018- No 1mg tartrate 50 0-29 mg tablet 00:00: 00 metformin 2018- No 2mg ER 500 mg 0-29 tablet,exte 00:00: nded 00 release 24 hr glimepiride 2018- No 1mg 1 mg tablet 029 00:00: 00 levothyroxi 2018-1 No 1mcg ne 125 mcg 0-29 tablet 00:00: 00 hydrochloro 2019-0 No 1mg thiazide 8-07 12.5 mg 00:00: tablet 00 folic acid 2018-0 No 1mg 1 mg tablet 8 00:00: 00 glimepiride 2019-0 No 1mg 1 mg tablet 8 00:00: 00 metformin 2019-0 No 2mg ER 500 mg 8-07 tablet,exte 00:00: nded 00 release 24 hr metoprolol 2018-0 No 1mg tartrate 50 8-07 mg tablet 00:00: 00 Levitra 10 2019-0 No mg mg tablet 8 00:00: 00 levothyroxi 2019-0 No 1mcg ne 125 mcg 8- tablet 00:00: 00 hydrochloro 2019-0 No 1mg [...] Levitra 10 2019-0 No mg mg tablet 01-12 00:00: 00 levothyroxi 2019-0 No 1mcg ne 125 mcg 8- tablet 00:00: 00 hydrochloro 2019-0 No 1mg [...] levothyroxi 2019-0 No 1mcg ne 125 mcg 7-03 tablet 00:00: 00 hydrochloro 2019-0 No 1mg [...] 1mg 1 mg tablet 5-08 00:00: 00 hydrochloro 2019-0 No 1mg thiazide [...] lisinopril 2018-0 No 1mg 5 mg tablet 5- 00:00: 00 folic acid 2018-0 No 1mg 1 mg tablet 5- 00:00: 00 metoprolol 2018-0 No 1mg tartrate 50 5-03 mg tablet 00:00: 00 lisinopril 2018-0 No 1mg 5 mg tablet 5- 00:00: 00 folic acid 2018-0 No 1mg 1 mg tablet 5- 00:00: 00 metoprolol 2018-0 No 1mg tartrate 50 5-03 mg tablet 00:00: 00 Immunizations Ordered Immunization Filled Immunization Date Status Commen ts Source Name Name Influenza Three-TIV 2017-08-02 [facility] Influenza Three-TIV 2017-08-02 [facility]00 [facility] Influenza Three-TIV 2017-08-02 [facility] Influenza Three-TIV 2017-08-02 Com[facility] 00:00:00 [facility] Influenza Three-TIV 2017-08-02 Completed [facility] S sloane Lezama PF 5+ YR 00:00:00 [facility] Vital Signs Vital Name Observation Time Observation Value Comments Source Height 2022-10-11 23:32:00 180.34 CM Weight 2022-10-11 23:32:00 89.17 KG BP Systolic 2022-01-08 10:51:00 155 mm[Hg] BP [...] Goal Plan of Care Note [code = 12822-9] Goal Plan of Care Note [code = 15395-4] Goal Plan of Care Note [code = 92560-7] Goal Plan of Care Note [code = 66462-2] Goal Plan of Care Note [code = 71118-3] Goal Plan of Care Note [code = 24749-9] Goal Plan of Care Note [code = 43157-4] Goal Plan of Care Note [code = 14356-7] Goal Plan of Care Note [code = 93614-9] Goal Plan of Care Note [code = 21797-6] Goal Plan of Care Note [code = 31765-3] Goal Plan of Care Note [code = 38007-5] Goal Plan of Care Note [code = 25857-8] Goal Plan of Care Note [code = 31789-6] Goal Plan of Care Note [code = 74320-0] Goal Plan of Care Note [code = 24742-7] Goal Plan of Care Note [code = 82108-7] Goal Plan of Care Note [code = 69718-8] Goal Plan of Care Note [code = 65327-5] Goal Plan of Care Note [code = 40989-3] Goal Plan of Care Note [code = 37306-1] Goal Plan of Care Note [code = 11367-2] Goal Plan of Care Note [code = 12347-7] Goal Plan of Care Note [code = 53149-5] Goal Plan of Care Note [code = 37733-1] Goal Plan of Care Note [code = 11184-4] Goal Plan of Care Note [code = 55320-3] Goal Plan of Care Note [code = 71162-9] Goal Plan of Care Note [code = 59274-1] Goal Plan of Care Note [code = 27833-1] Goal Plan of Care Note [code = 67378-1] Goal Plan of Care Note [code = 12919-1] Goal Plan of Care Note [code = 08321-8] Goal Plan of Care Note [code = 63095-3] Goal Plan of Care Note [code = 34607-7] Goal Plan of Care Note [code = 22327-2] Goal Plan of Care Note [code = 76895-5] Goal Plan of Care Note [code = 04930-6] Encounters Start End Encounter Admission Attending Care Care Encounter Source Date/Time Date/Time Type Type Clinicians Facility Department ID 2022-10-25 2022-10-25 Outpatient [facility] [id number] Ori 13:05:51 13:05:51 0520 Angeles Ryan 2022-10-11 2022-10-14 Inpatient E EPI [facility] [id number] [facility] 20:34:00 16:10:[address] [facility] 2022-07-15 2022-07-15 Outpatient [facility] SFA [id number] 023 Ori 09:19:36 09:19:36 0207 Angeles Ryan 2022-01-08 2022-01-08 Outpatient [id number] 00:00:00 00:00:00 Visit [id number] 2021-12-25 2021-12-25 Outpatient [id number] 00:00:00 00:00:00 Visit [id number] Results Test Description Test Time Test Comments Results Result Comments Source TSH, THIRD GENERATION 2022-10-27 02:54:58 Test Item Value Reference Range Interpretation Comme nts TSH, THIRD GENERATION (test code = 2821) 2.110 UIU/ML 0.400-4.100 COMPREHENSIVE METABOLIC [id number] 01:06:59 Test Item Value Reference Range Interpretation Comments GLUCOSE (test code = 197 MG/DL 70-99 H 2216) BUN (test code = 8 MG/DL -20 2207) CREATININE (test 0.76 MG/DL 0.80-1.40 L code = 2214) eGFR (2020 CKD-EPI) 107 >60 (test code = 68469) ML/MIN/1.73 CALC BUN/CREAT (test 11 RATIO -28 code = 2235) SODIUM (test code = 138 MEQ/L 718-248 8036) POTASSIUM (test code 4.0 MEQ/L 3.5-5.4 = 222) CHLORIDE (test code 97 MEQ/L 95-107 = 2215) CARBON DIOXIDE (test 24 MEQ/L 19-31 code = 2206) CALCIUM (test code = 10.3 MG/DL 8.5-10.5 2208) PROTEIN, TOTAL (test 8.4 G/DL 6.1-8.3 H code = 2229) ALBUMIN (test code = 4.3 G/DL 3.5-5.2 2200) CALC GLOBULIN (test 4.1 G/DL 1.9-3.7 H code = 2240) CALC A/G RATIO (test 1.0 RATIO 1.0-2.6 code = 2234) BILIRUBIN, TOTAL 0.4 MG/DL See_Comment [Automated message] (test code = 2207) The syste m which generated this result transmit tejinder reference range : <=1.2. The refe rence range was not u sed to interpret th is result as normal/abnormal . ALKALINE PHOSPHATASE 155 U/L 40-121 H (test code = 2203) AST (test code = 35 U/L 9-50 2217) ALT (test code = 34 U/L 5-50 2218) HEMOGLOBIN [id number] 05:00:53 Test Item Value Reference Range Interpretation Comments HEMOGLOBIN A1c (test 7.1 % 4.2-5.6 H [employer] AN DIABETES code = 32207) ASSOCIATION IDELINES FOR HGB A1C: PREDIABETES/INC REASED [...] ALTERN ATE TESTING OR LABORATORY C ONSULTATION. UNLESS OTHERWIS E INDICATED, ALL TESTING PER FORMED AT [facility]IN[facility] [employer], [facility]. [address] [place] [address] LABORATORY DIRE CTOR: RASHAAD LEW M.D. CLIA NUMBER [id number] CAP ACCREDITATION N O. [id number] CBC W/AUTO DIFF WITH [id number] 02:37:44 Test Item Value Reference Range Interpretation Comments WBC (test code = 8.6 K/UL 3.5-11.0 1001) RBC (test code = 3.98 M/UL 4.50-6.10 L 1002) HEMOGLOBIN (test code 12.2 G/DL 13.5-17.0 L = 1003) HEMATOCRIT (test code 35.7 % 40.0-51.0 L = 1004) MCV (test code = 89.7 fL 80.0-99.0 1005) MCH (test code = 30.7 PG 25.0-33.0 1006) MCHC (test code = 34.2 G/DL 31.0-36.0 1007) RDW (test code = 11.6 % 11.5-15.0 1038) NEUTROPHILS (test 71.4 % code = 1008) LYMPHOCYTES (test 17.5 % code = 1010) MONOCYTES (test code 7.5 % = 1011) EOSINOPHILS (test 2.7 % code = 1012) BASOPHILS (test code 0.7 % = 1013) IMMATURE GRANULOCYTES 0.2 % (test code = 1036) NUCLEATED RBCS (test 0.0 /100 WBC'S See_Comment [Aut omated code = 1065) message] The sy stem which generated this result transmitted reference range : 0.0. The refere nce range was not u sed to interpret th is result as normal/abnormal . PLATELET COUNT (test 347 K/UL 130-400 code = 1015) ABSOLUTE NEUTROPHILS 6.16 K/UL 1.50-7.50 (test code = 1066) ABSOLUTE LYMPHOCYTES 1.51 K/UL 1.00-4.00 (test code = 1067) ABSOLUTE MONOCYTES 0.65 K/UL 0.20-1.00 (test code = 1068) ABSOLUTE EOSINOPHILS 0.23 K/UL 0.00-0.50 (test code = 1040) ABSOLUTE BASOPHILS 0.06 K/UL 0.00-0.20 (test code = 1069) ABS IMMATURE 0.02 K/UL 0.00-0.10 GRANULOCYTES (test code = 1020) ABS NUCLEATED RBCS 0.00 K/UL 0.00-0.11 (test code = 40007) OSM[facility]ARITY [id number] 16:57:00 Test Item Value Reference Range Interpretation Comments OSMOLALITY (SERUM) 280 mOsm/kg 278-305 TEST PERF ORMED (test code = 67639556) AT:1[facility] [address] [place] [address]AEIZYMAHAD STODDARD MD OSMOLARITY, [id number] 16:57:00 Test Item Value Reference Range Interpretation Comments OSMOLALITY (U) (test 67 mOsm/kg 50-1200 TEST PE RFORMED code = 47163509) AT:[employer] [facility] [address] [place] [address]DS WYATT STODDARD MD GLUCOMETER GLUCOSE- LAB USE [id number] 14:17:00 Test Item Value Reference Range Interpretation Comments GLUCOMETER (test code = 46 mg/dL 70-100 LL Mete r ID: GMG) [id number] tor: [address]ODY [id number] 21:46:00 Test Item Value Reference Range Interpretation Comments INSULIN (test code 17.3 uIU/mL Referenc e Range < or = = [id number]) 18.4 Risk: Opti mal < or = 18.4 Moderate NA High >18.4 Adult cardiovascular event risk category c ut points (optimal, moder ate, high) are based on Insulin Referen ce Interval studie s performed at [facility] in 2021.TEST PERFORMED AT:1[facility] [id number] [place] [address]BK WYATT STODDARD MD HEPATITIS B CORE ANTIBODY,[id number] 21:46:00 Test Item Value Reference Range Interpretation Comments HEPATITIS B CORE AB REACTIVE NON-REACTIVE A TEST PER FORMED AT:[facility] TOTAL (test code = DIAGNOSTI CS [id number]) [place] [address] WYATT STODDARD MD T3 [id number] 14:16:00 Test Item Value Reference Range Interpretation Comments T3 FREE (test code 2.5 pg/mL 2.3-4.2 TEST PERF ORMED AT:[facility] = [id number]) [facility]ST[facility] [id number] [place] [address]JFOWW Sloane STODDARD MD [id number] 14:11:00 Test Item Value Reference Range Interpretation Comments MAGNESIUM (test code = 48A) 1.7 mg/dL 1.6-2.6 CORTISOL [id number] 14:03:00 Test Item Value Reference Range Interpretation Comments CORTISOL (test 6.60 ug/dL test performe d at code = A10) [facility] CORTISOL REF RANGE (test code CORTISOL REFERENCE = COSH) RANGE 7:00 - 9:00 am 5.27-22.45 ug/dL 3:00 - 5:00 pm 3.44-16.76 ug/dL ug/dL GLUCOMETER GLUCOSE- LAB USE [id number] 12:14:00 Test Item Value Reference Range Interpretation Comments GLUCOMETER (test code = 291 mg/dL 70-100 H Mete r ID: GMG) [id number] tor: [address] [address] UANYI [id number] 05:19:00 Test Item Value Reference Range Interpretation Comments MAGNESIUM (test code = 48A) 1.0 mg/dL 1.6-2.6 LL COMPREHENSIVE METABOLIC [id number] 04:49:00 Test Item Value Reference Range Interpretation Comments GLUCOSE (test code 123 mg/dL 75-100 H = 06D) SODIUM (test code 137 mmol/L 136-145 = 01A) POTASSIUM (test 3.6 mmol/L 3.6-5.1 code = 01B) CHLORIDE (test 103 mmol/L 98-107 code = 04A) CO2 (test code = 29 mmol/L 20-31 02A) ANION GAP (test 8.6 mmol/L code = ANG) BUN (test code = 8 mg/dL 9-23 L 05D) CREATININE (test 0.9 mg/dL 0.7-1.3 code = 03E) GFR (test code = 97 See_Comment [Automated GFR) mL/min/1.73m\\S\\2 message] e system which generated this result transmit tejinder reference range : >=90. The reference range was not used to interpret this result as normal/abnormal . GFR 113 See_Comment [Automated TAIWANESE (test mL/min/1.73m\\S\\2 message] The code = GFRAA) system which generated this result transmit tejinder reference range : >=90. The reference range was not used to interpret this result as normal/abnormal . EGFR (test code = eGFR BY EGFR) CKD-EPI CALCULATION IS NOT RECOMMENDED FOR PATIENTS UNDER 18 YEARS OF AGE. BUN/CREA (test 9 12-20 L code = BCR) CALCIUM (test code 9.3 mg/dL 8.3-10.6 = 09D) BILI TOTAL (test 0.6 mg/dL 0.2-1.0 code = 11A) PROTEIN (test code 7.0 g/dL 5.7-8.2 = 07D) ALBUMIN (test code 3.3 g/dL 3.2-4.8 = 08D) GLOBULIN (test 3.7 g/dL 1.5-3.8 code = GLB) ALB/GLOB (test 0.9 1.0-2.6 L code = AGRR) ALK PHOS (test 148 IU/L 46-116 H code = 35A) AST (test code = 55 IU/L See_Comment H [Automated 30A) message] The system which generated this result transmit tejinder reference range : <=33. The reference range was not used to interpret this result as normal/abnormal . ALT (test code = 36 IU/L 10-49 31A) CBC (INCLUDES AUTOMATED DIFFERENTIAL)2022-10-14 04:44:00 Test Item Value Reference Range Interpretation Comments WBC (test code = WBC) 5.4 10\\S\\3/uL 4.5-11.0 RBC (test code = RBC) 3.46 10\\S\\6/uL 4.20-5.60 L HGB (test code = HBG) 10.9 g/dL 14.0-18.0 L HCT (test code = HCT) 31.4 % 35.0-46.0 L MCV (test code = MCV) 90.8 fL 80.0-94.0 MCH (test code = MCH) 31.5 pg 27.0-31.0 H MCHC (test code = MCHC) 34.7 g/dL 32.0-36.0 RDW (test code = RDW) 12.6 % 11.5-14.5 PLT (test code = PLT) 156 10\\S\\3/uL 130-400 MPV (test code = MPV) 9.5 fL 9.4-12.4 NEUTROP # (test code = NE#) 2.9 10\\S\\3/uL 2.0-8.0 LYMPH # (test code = LY#) 1.7 10\\S\\3/uL 1.2-4.0 MONOCYTE # (test code = MO#) 0.7 10\\S\\3/uL 0.0-1.1 EOSINOPH # (test code = EO#) 0.1 10\\S\\3/uL 0.0-0.7 BASOPHIL # (test code = BA#) 0.1 10\\S\\3/uL 0.0-0.3 IG # (test code = IG#) 0.02 10\\S\\3/uL 0.00-0.06 NRBC # (test code = NRBC#) 0.00 10\\S\\3/uL 0.00-0.01 NEUTROPH % (test code = NE%) 53.0 % 35.0-73.0 LYMPH % (test code = LY%) 31.2 % 20.0-55.0 MONO % (test code = MO%) 12.6 % 2.5-10.0 H EOSINOPH % (test code = EO%) 1.9 % 0.0-5.0 BASOPHIL % (test code = BA%) 0.9 % 0.0-2.0 IG % (test code = IG%) 0.4 % 0.0-0.8 NRBC% (test code = NRBC%) 0.0 % 0.0-0.2 MANDIFF (test code = MDIFF) NO NO RBC MORPH (test code = RBCMOR) NORMAL GLUCOMETER GLUCOSE- LAB USE [id number] 00:49:00 Test Item Value Reference Range Interpretation Comments GLUCOMETER (test code 143 mg/dL 70-100 H CLEANE D METERMeter ID: = GMG) [id number] tor: [address] OSITO MARINELLI BRIGHTON GLUCOMETER GLUCOSE- LAB USE [id number] 23:42:00 Test Item Value Reference Range Interpretation Comments GLUCOMETER (test code 245 mg/dL 70-100 H CLEANE D METERMeter ID: = GMG) [id number] tor: [address] [facility] GLUCOMETER GLUCOSE- LAB USE [id number] 23:42:00 Test Item Value Reference Range Interpretation Comments GLUCOMETER (test code = 267 mg/dL 70-100 H Mete r ID: GMG) [id number] tor: [address] [facility] GLUCOMETER GLUCOSE- LAB USE [id number] 16:32:00 Test Item Value Reference Range Interpretation Comments GLUCOMETER (test code = 315 mg/dL 70-100 H Mete r ID: GMG) [id number] tor: 15510 [facility] GLUCOMETER GLUCOSE- LAB USE [id number] 12:41:00 Test Item Value Reference Range Interpretation Comments GLUCOMETER (test code = 321 mg/dL 70-100 H Mete r ID: GMG) [id number] tor: 27575 [facility] GLUCOMETER GLUCOSE- LAB USE [id number] 08:28:00 Test Item Value Reference Range Interpretation Comments GLUCOMETER (test code = 207 mg/dL 70-100 H Mete r ID: GMG) [id number] tor: [id number] [facility] GLUCOMETER GLUCOSE- LAB USE [id number] 08:28:00 Test Item Value Reference Range Interpretation Comments GLUCOMETER (test 171 mg/dL 70-100 H Result Not code = GMG) ConfirmedMeter ID: [id number] tor: 5533 [address] GLUCOMETER GLUCOSE- LAB USE [id number] 08:28:00 Test Item Value Reference Range Interpretation Comments GLUCOMETER (test code 150 mg/dL 70-100 H CLEANE D METERMeter ID: = GMG) [id number] tor: 5533 [address] A GLUCOMETER GLUCOSE- LAB USE [id number] 08:27:00 Test Item Value Reference Range Interpretation Comments GLUCOMETER (test 162 mg/dL 70-100 H Result Not code = GMG) ConfirmedMeter ID: [id number] tor: 5533 [address] GLUCOMETER GLUCOSE- LAB USE [id number] 08:27:00 Test Item Value Reference Range Interpretation Comments GLUCOMETER (test code 180 mg/dL 70-100 H CLEANE D METERMeter ID: = GMG) [id number] tor: 5533 [address] A GLUCOMETER GLUCOSE- LAB USE [id number] 08:27:00 Test Item Value Reference Range Interpretation Comments GLUCOMETER (test 190 mg/dL 70-100 H Result Not code = GMG) ConfirmedMeter ID: [id number] tor: 5533 [address] [facility] HEPATITIS C [id number] 07:23:00 Test Item Value Reference Range Interpretation Comments HCAB (test code = HCAB) NON-REACTIVE NON-REACTIVE HEPATITIS B SURFACE [id number] 07:19:00 Test Item Value Reference Range Interpretation Comments HBSAB (test code = HBSAB) REACTIVE REACTIVE HEPATITIS B SURFACE [id number] 07:03:00 Test Item Value Reference Range Interpretation Comments HBSAG (test code = HBSAG) NON-REACTIVE NON-REACTIVE THYROID PANEL/SCREEN (TSH)2022-10-13 05:45:00 Test Item Value Reference Range Interpretation Comments TSH (test code = A57) 2.709 uIU/mL 0.550-4.780 COMPREHENSIVE METABOLIC [id number] 05:44:00 Test Item Value Reference Range Interpretation Comments GLUCOSE (test code 171 mg/dL 75-100 H = 06D) SODIUM (test code 136 mmol/L 136-145 = 01A) POTASSIUM (test 3.6 mmol/L 3.6-5.1 code = 01B) CHLORIDE (test 104 mmol/L 98-107 code = 04A) CO2 (test code = 25 mmol/L 20- 02A) ANION GAP (test 10.6 mmol/L code = ANG) BUN (test code = 15 mg/dL - 05D) CREATININE (test 1.1 mg/dL 0.7-1.3 code = 03E) GFR (test code = 76 See_Comment L [Automated GFR) mL/min/1.73m\\S\\2 message] e system which generated this result transmit tejinder reference range : >=90. The reference range was not used to interpret this result as normal/abnormal . GFR 88 See_Comment L [Automated TAIWANESE (test mL/min/1.73m\\S\\2 message] The code = GFRAA) system which generated this result transmit tejinder reference range : >=90. The reference range was not used to interpret this result as normal/abnormal . EGFR (test code = eGFR BY EGFR) CKD-EPI CALCULATION IS NOT RECOMMENDED FOR PATIENTS UNDER 18 YEARS OF AGE. BUN/CREA (test 14 05-27 code = BCR) CALCIUM (test code 10.1 mg/dL 8.3-10.6 = 09D) BILI TOTAL (test 0.8 mg/dL 0.2-1.0 code = 11A) PROTEIN (test code 6.6 g/dL 5.7-8.2 = 07D) ALBUMIN (test code 3.0 g/dL 3.2-4.8 L = 08D) GLOBULIN (test 3.6 g/dL 1.5-3.8 code = GLB) ALB/GLOB (test 0.8 1.0-2.6 L code = AGRR) ALK PHOS (test 153 IU/L 46-116 H code = 35A) AST (test code = 54 IU/L See_Comment H [Automated 30A) message] The system which generated this result transmit tejinder reference range : <=33. The reference range was not used to interpret this result as normal/abnormal . ALT (test code = 33 IU/L 10-49 31A) URIC [id number] 05:44:00 Test Item Value Reference Range Interpretation Comments URIC ACID (test code = 41A) 6.3 mg/dL 3.7-9.2 CARDIAC [id number] 05:41:00 Test Item Value Reference Range Interpretation Comments TROPONIN I (test code = A84) 4.15 pg/mL 0.00-45.20 CBC (INCLUDES AUTOMATED DIFFERENTIAL)2022-10-13 05:33:00 Test Item Value Reference Range Interpretation Comments WBC (test code = WBC) 4.0 10\\S\\3/uL 4.5-11.0 L RBC (test code = RBC) 3.59 10\\S\\6/uL 4.20-5.60 L HGB (test code = HBG) 11.3 g/dL 14.0-18.0 L HCT (test code = HCT) 32.0 % 35.0-46.0 L MCV (test code = MCV) 89.1 fL 80.0-94.0 MCH (test code = MCH) 31.5 pg 27.0-31.0 H MCHC (test code = MCHC) 35.3 g/dL 32.0-36.0 RDW (test code = RDW) 12.0 % 11.5-14.5 PLT (test code = PLT) 150 10\\S\\3/uL 130-400 MPV (test code = MPV) 9.7 fL 9.4-12.4 NEUTROP # (test code = NE#) 2.1 10\\S\\3/uL 2.0-8.0 LYMPH # (test code = LY#) 1.2 10\\S\\3/uL 1.2-4.0 MONOCYTE # (test code = MO#) 0.6 10\\S\\3/uL 0.0-1.1 EOSINOPH # (test code = EO#) 0.1 10\\S\\3/uL 0.0-0.7 BASOPHIL # (test code = BA#) 0.0 10\\S\\3/uL 0.0-0.3 IG # (test code = IG#) 0.02 10\\S\\3/uL 0.00-0.06 NRBC # (test code = NRBC#) 0.00 10\\S\\3/uL 0.00-0.01 NEUTROPH % (test code = NE%) 53.4 % 35.0-73.0 LYMPH % (test code = LY%) 29.4 % 20.0-55.0 MONO % (test code = MO%) 14.9 % 2.5-10.0 H EOSINOPH % (test code = EO%) 1.3 % 0.0-5.0 BASOPHIL % (test code = BA%) 0.5 % 0.0-2.0 IG % (test code = IG%) 0.5 % 0.0-0.8 NRBC% (test code = NRBC%) 0.0 % 0.0-0.2 MANDIFF (test code = MDIFF) NO NO RBC MORPH (test code = RBCMOR) NORMAL BASIC METABOLIC [id number] 22:06:00 Test Item Value Reference Range Interpretation Comments GLUCOSE (test code 181 mg/dL 75-100 H = 06D) SODIUM (test code 129 mmol/L 136-145 L = 01A) POTASSIUM (test 3.9 mmol/L 3.6-5.1 code = 01B) CHLORIDE (test 99 mmol/L 98-107 code = 04A) CO2 (test code = 24 mmol/L 20-31 02A) ANION GAP (test 10.2 mmol/L code = ANG) BUN (test code = 8 mg/dL 9-23 L 05D) CREATININE (test 1.3 mg/dL 0.7-1.3 code = 03E) GFR (test code = 62 See_Comment L [Automated GFR) mL/min/1.73m\\S\\2 message] Th e system which generated this result transmit tejinder reference range : >=90. The reference range was not used to interpret this result as normal/abnormal . GFR 72 See_Comment L [Automated TAIWANESE (test mL/min/1.73m\\S\\2 message] The code = GFRAA) system which generated this result transmit tejinder reference range : >=90. The reference range was not used to interpret this result as normal/abnormal . EGFR (test code = eGFR BY EGFR) CKD-EPI CALCULATION IS NOT RECOMMENDED FOR PATIENTS UNDER 18 YEARS OF AGE. BUN/CREA (test 6 12-20 L code = BCR) CALCIUM (test code 9.6 mg/dL 8.3-10.6 = 09D) POTASSIUM RANDOM [id number] 19:00:00 Test Item Value Reference Range Interpretation Comments K+ UR RAN (test code 9 mmol/L = KUR) NRR (test code = * NO REFRENCE RANGE NRR) AVAILABLE FOR RANDOM SPECIMEN* SODIUM RANDOM [id number] 18:39:00 Test Item Value Reference Range Interpretation Comments NA UR RAND (test 14 mmol/L code = NAUR) NRR (test code = * NO REFRENCE RANGE NRR) AVAILABLE FOR RANDOM SPECIMEN* GLUCOMETER GLUCOSE- LAB USE [id number] 18:38:00 Test Item Value Reference Range Interpretation Comments GLUCOMETER (test code = 156 mg/dL 70-100 H Mete r ID: GMG) [id number] tor: [id number] MALINA S AUSET GLUCOMETER GLUCOSE- LAB USE [id number] 17:09:00 Test Item Value Reference Range Interpretation Comments GLUCOMETER (test code = 103 mg/dL 70-100 H Mete r ID: GMG) [id number] tor: [id number] MALINA S AUSET GLUCOMETER GLUCOSE- LAB USE [id number] 15:51:00 Test Item Value Reference Range Interpretation Comments GLUCOMETER (test code = 88 mg/dL 70-100 Mete r ID: GMG) [id number] tor: [id number] MALINA S AUSET GLUCOMETER GLUCOSE- LAB USE [id number] 14:46:00 Test Item Value Reference Range Interpretation Comments GLUCOMETER (test code = 89 mg/dL 70-100 Mete r ID: GMG) [id number] tor: [id number] MALINA S AUSET GLUCOMETER GLUCOSE- LAB USE [id number] 14:46:00 Test Item Value Reference Range Interpretation Comments GLUCOMETER (test code = 102 mg/dL 70-100 H Mete r ID: GMG) [id number] tor: [id number] MALINA S AUSET GLUCOMETER GLUCOSE- LAB USE [id number] 12:36:00 Test Item Value Reference Range Interpretation Comments GLUCOMETER (test code = 98 mg/dL 70-100 Mete r ID: GMG) [id number] tor: [id number] MALINA S AUSET BASIC METABOLIC [id number] 12:27:00 Test Item Value Reference Range Interpretation Comments GLUCOSE (test code 105 mg/dL 75-100 H = 06D) SODIUM (test code 124 mmol/L 136-145 L = 01A) POTASSIUM (test 4.0 mmol/L 3.6-5.1 code = 01B) CHLORIDE (test 95 mmol/L 98-107 L code = 04A) CO2 (test code = 23 mmol/L 20-31 02A) ANION GAP (test 9.7 mmol/L code = ANG) BUN (test code = 6 mg/dL 9-23 L 05D) CREATININE (test 1.4 mg/dL 0.7-1.3 H code = 03E) GFR (test code = 57 See_Comment L [Automated GFR) mL/min/1.73m\\S\\2 message] Th e system which generated this result transmit tejinder reference range : >=90. The reference range was not used to interpret this result as normal/abnormal . GFR 66 See_Comment L [Automated TAIWANESE (test mL/min/1.73m\\S\\2 message] The code = GFRAA) system which generated this result transmit tejinder reference range : >=90. The reference range was not used to interpret this result as normal/abnormal . EGFR (test code = eGFR BY EGFR) CKD-EPI CALCULATION IS NOT RECOMMENDED FOR PATIENTS UNDER 18 YEARS OF AGE. BUN/CREA (test 4 12-20 L code = BCR) CALCIUM (test code 9.0 mg/dL 8.3-10.6 = 09D) GLUCOMETER GLUCOSE- LAB USE [id number] 11:13:00 Test Item Value Reference Range Interpretation Comments GLUCOMETER (test code = 58 mg/dL 70-100 LL Mete r ID: GMG) [id number] tor: [id number] MALINA S AUSET GLUCOMETER GLUCOSE- LAB USE [id number] 10:14:00 Test Item Value Reference Range Interpretation Comments GLUCOMETER (test code = 101 mg/dL 70-100 H Mete r ID: GMG) [id number] tor: [id number] MALINA S AUSET [id number] 09:06:00 Test Item Value Reference Range Interpretation Comments MAGNESIUM (test code = 48A) 1.3 mg/dL 1.6-2.6 LL GLUCOMETER GLUCOSE- LAB USE [id number] 08:11:00 Test Item Value Reference Range Interpretation Comments GLUCOMETER (test code = 68 mg/dL 70-100 L BROOKLYNN MEG METERMeter ID: GMG) [id number] tor: [id number] MALINA S AUSET GLUCOMETER GLUCOSE- LAB USE [id number] 07:47:00 Test Item Value Reference Range Interpretation Comments GLUCOMETER (test code 102 mg/dL 70-100 H CLEANE D METERMeter ID: = GMG) [id number] tor: 5533 RICARDO WAR A GLUCOMETER GLUCOSE- LAB USE [id number] 07:47:00 Test Item Value Reference Range Interpretation Comments GLUCOMETER (test code = 52 mg/dL 70-100 LL BROOKLYNN MEG METERMeter ID: GMG) [id number] tor: 5533 RICARDO WAR A GLUCOMETER GLUCOSE- LAB USE [id number] 07:47:00 Test Item Value Reference Range Interpretation Comments GLUCOMETER (test code = 81 mg/dL 70-100 BROOKLYNN MEG METERMeter ID: GMG) [id number] tor: 5533 RICARDO WAR A GLUCOMETER GLUCOSE- LAB USE [id number] 07:47:00 Test Item Value Reference Range Interpretation Comments GLUCOMETER (test code = 94 mg/dL 70-100 BROOKLYNN MEG METERMeter ID: GMG) [id number] tor: 5533 RICARDO DE LA FUENTE A GLUCOMETER GLUCOSE- LAB USE [id number] 07:47:00 Test Item Value Reference Range Interpretation Comments GLUCOMETER (test code = 51 mg/dL 70-100 LL BROOKLYNN MEG METERMeter ID: GMG) [id number] tor: 5533 RICARDO DE LA FUENTE A GLUCOMETER GLUCOSE- LAB USE [id number] 07:47:00 Test Item Value Reference Range Interpretation Comments GLUCOMETER (test code = 66 mg/dL 70-100 L BROOKLYNN MEG METERMeter ID: GMG) [id number] tor: 5533 RICARDO DE LA FUENTE A GLUCOMETER GLUCOSE- LAB USE [id number] 07:47:00 Test Item Value Reference Range Interpretation Comments GLUCOMETER (test code = 118 mg/dL 70-100 H Mete r ID: GMG) [id number] tor: [id number] SUSANA L A MATTHEW GLUCOMETER GLUCOSE- LAB USE [id number] 07:46:00 Test Item Value Reference Range Interpretation Comments GLUCOMETER (test code 20 mg/dL 70-100 LL Result Not = GMG) ConfirmedMeter ID: [id number] tor: 5533 RICARDO VALELS GLUCOMETER GLUCOSE- LAB USE [id number] 07:46:00 Test Item Value Reference Range Interpretation Comments GLUCOMETER (test code 104 mg/dL 70-100 H CLEANE D METERMeter ID: = GMG) [id number] tor: 5533 RICARDO DE LA FUENTE A THYROID PANEL/SCREEN (TSH)2022-10-12 06:02:00 Test Item Value Reference Range Interpretation Comments TSH (test code = A57) 2.557 uIU/mL 0.550-4.780 BASIC METABOLIC [id number] 06:01:00 Test Item Value Reference Range Interpretation Comments GLUCOSE (test code 52 mg/dL 75-100 LL = 06D) SODIUM (test code 127 mmol/L 136-145 L = 01A) POTASSIUM (test 3.4 mmol/L 3.6-5.1 L code = 01B) CHLORIDE (test 97 mmol/L 98-107 L code = 04A) CO2 (test code = 22 mmol/L 20-31 02A) ANION GAP (test 11.2 mmol/L code = ANG) BUN (test code = 6 mg/dL 9-23 L 05D) CREATININE (test 1.3 mg/dL 0.7-1.3 code = 03E) GFR (test code = 62 See_Comment L [Automated GFR) mL/min/1.73m\\S\\2 message] Th e system which generated this result transmit tejinder reference range : >=90. The reference range was not used to interpret this result as normal/abnormal . GFR 72 See_Comment L [Automated TAIWANESE (test mL/min/1.73m\\S\\2 message] The code = GFRAA) system which generated this result transmit tejinder reference range : >=90. The reference range was not used to interpret this result as normal/abnormal . EGFR (test code = eGFR BY EGFR) CKD-EPI CALCULATION IS NOT RECOMMENDED FOR PATIENTS UNDER 18 YEARS OF AGE. BUN/CREA (test 5 12-20 L code = BCR) CALCIUM (test code 8.4 mg/dL 8.3-10.6 = 09D) T4 [id number] 05:47:00 Test Item Value Reference Range Interpretation Comments T4 FREE (test code = A91) 1.14 ng/dL 0.89-1.76 [id number] 05:44:00 Test Item Value Reference Range Interpretation Comments Hb A1C % (test code 6.2 % 3.8-6.4 = HBA) A1C % (test code = HbA1c (% ) A1C) Reference Range Normal <5.7 Prediabetes 5.7-6.4 Diabetic >=6.5 CBC (INCLUDES AUTOMATED DIFFERENTIAL)2022-10-12 05:31:00 Test Item Value Reference Range Interpretation Comments WBC (test code = WBC) 9.1 10\\S\\3/uL 4.5-11.0 RBC (test code = RBC) 3.79 10\\S\\6/uL 4.20-5.60 L HGB (test code = HBG) 11.9 g/dL 14.0-18.0 L HCT (test code = HCT) 33.5 % 35.0-46.0 L MCV (test code = MCV) 88.4 fL 80.0-94.0 MCH (test code = MCH) 31.4 pg 27.0-31.0 H MCHC (test code = MCHC) 35.5 g/dL 32.0-36.0 RDW (test code = RDW) 12.0 % 11.5-14.5 PLT (test code = PLT) 166 10\\S\\3/uL 130-400 MPV (test code = MPV) 9.4 fL 9.4-12.4 NEUTROP # (test code = NE#) 7.0 10\\S\\3/uL 2.0-8.0 LYMPH # (test code = LY#) 1.1 10\\S\\3/uL 1.2-4.0 L MONOCYTE # (test code = MO#) 0.9 10\\S\\3/uL 0.0-1.1 EOSINOPH # (test code = EO#) 0.0 10\\S\\3/uL 0.0-0.7 BASOPHIL # (test code = BA#) 0.0 10\\S\\3/uL 0.0-0.3 IG # (test code = IG#) 0.06 10\\S\\3/uL 0.00-0.06 NRBC # (test code = NRBC#) 0.03 10\\S\\3/uL 0.00-0.01 H NEUTROPH % (test code = NE%) 77.0 % 35.0-73.0 H LYMPH % (test code = LY%) 11.7 % 20.0-55.0 L MONO % (test code = MO%) 10.1 % 2.5-10.0 H EOSINOPH % (test code = EO%) 0.4 % 0.0-5.0 BASOPHIL % (test code = BA%) 0.1 % 0.0-2.0 IG % (test code = IG%) 0.7 % 0.0-0.8 NRBC% (test code = NRBC%) 0.3 % 0.0-0.2 H MANDIFF (test code = MDIFF) NO NO RBC MORPH (test code = RBCMOR) NORMAL SARS-CoV (RAPID ANTIGEN) [id number] 20:32:00 Test Item Value Reference Range Interpretation Comments SARS-CoV (ANTIGEN) NEGATIVE NEGATIVE (test code = COVAG) COVID AG (test This test has been code = COVAGC) marketed under the FDA Emergency Use Authorization (EUA) to meet challenges of the COVID-19 pandemic. The validation standards normally enforced by the FDA and the [employer] of the [place] [employer] (CAP) are more stringent than those required for this test. Therefore, the result should be interpreted with caution and close attention to other clinical and epidemiological data MetyLyte 8 Panel *OW* [id number] 20:01:00 Test Item Value Reference Range Interpretation Comments GLUCOSE (test code = GGUL) 53 mg/dL 73-118 LL BUN (test code = GBUN) 5 mg/dL 7-22 L CREATININE (test code = GCRE) 0.9 mg/dL 0.6-1.2 CK TOTAL (test code = GCK) 153 U/L 39-380 SODIUM (test code = GNA+) 124 mmol/L 128-145 L POTASSIUM (test code = GK+) 3.6 mmol/L 3.6-5.1 CHLORIDE (test code = GCL-) 92 mmol/L 98-108 L TCO2 (test code = GTC02) 23 mmol/L 18-33 URINALYSIS W/O [id number] 19:07:00 Test Item Value Reference Range Interpretation Comments COLOR (test code = Yellow YELLOW COLU) CLARITY (test code = Clear CLEAR CLA) GLUCOSE UR (test Negative NEGATIVE code = UA GLUCOSE) BILI UR (test code = Negative NEGATIVE BILE) KETONES UR (test Negative NEGATIVE code = JOSEPH) SP GRAVITY (test 1.010 1.005-1.030 code = SPGR) PH UR (test code = 6.5 4.5-8.0 PH) PROTEIN UR (test 1+ NEGATIVE A code = PU) NITRITE UR (test Negative NEGATIVE code = NITRITE) UROBIL UR (test code 0.2 E.U./dL = GUROQ) UROBIL UR (test code UROBILINOGEN = GUROQC) REFERENCE RANGE 0.2 - 1.0 EU/dL BLOOD UR (test code Negative NEGATIVE = UA BLOOD) LEUK ES UR (test Negative NEGATIVE code = LEUK) GLUCOMETER GLUCOSE- LAB USE [id number] 18:33:00 Test Item Value Reference Range Interpretation Comments GLUCOMETER (test code = 62 mg/dL 70-100 L Mete r ID: GMG) [id number] tor: [id number] [employer] LO PEZ III CT HEAD W/O CONTRAST *OW*2022-10-11 17:27:12 [facility] 1970 Sex: MCT brain without contrast.Location code: [id number] HISTORY: Altered mental status COMPARISON: None.TECHNIQUE:Routine unenhanced axial imaging of the brain was performed with sagittal and coronal reconstructions. One or more of the following dose reduction techniques were used: Automated exposure control, adjustment of the mA and or KV according to patient size, and/or utilization of iterative reconstruction technique. DLP: 774.76 mGy-cm. FINDINGS: There is no acute intracranial hemorrhage or extra-axial collection. There is no hydrocephalus, midline shift, or space occupying mass. Mayorga-white matter differentiation is well preserved with no definite CT evidence of an acute infarct. The posterior fossa is grossly unremarkable. The cranial vault and skull base are intact. The paranasal sinuses and mastoid air cells are pneumatized and well aerated. IMPRESSION: No acute intracranial abnormality.Electronically signed by: Monroe Bo MD 10/11/2022 5:27 PM CDT [id number] OW2022-10-11 17:21:00 Test Item Value Reference Range Interpretation Comments TROPONIN I (test <0.05 ng/mL See_Comment [Automated message] code = GTPI) The system [employer] generated this result transmitted ref erence range: <=0.05. The reference range was not used to int erpret this result as normal/abnormal . MetyLyte 8 Panel *OW* [id number] 17:20:00 Test Item Value Reference Range Interpretation Comments GLUCOSE (test code = GGUL) 173 mg/dL 73-118 H BUN (test code = GBUN) 5 mg/dL 7-22 L CREATININE (test code = GCRE) 1.0 mg/dL 0.6-1.2 CK TOTAL (test code = GCK) 141 U/L 39-380 SODIUM (test code = GNA+) 120 mmol/L 128-145 L POTASSIUM (test code = GK+) 2.7 mmol/L 3.6-5.1 LL CHLORIDE (test code = GCL-) 87 mmol/L 98-108 L TCO2 (test code = GTC02) 23 mmol/L 18-33 GENERAL CHEMISTRY 13 *OW* [id number] 17:18:00 Test Item Value Reference Range Interpretation Comments GLUCOSE (test code = GGUL) 173 mg/dL 73-118 H BUN (test code = GBUN) 5 mg/dL 7-22 L CREATININE (test code = GCRE) 1.0 mg/dL 0.6-1.2 URIC ACID (test code = GUA) 5.3 mg/dL 3.6-8.0 CALCIUM (test code = GCL+) 9.5 mg/dL 8.0-10.3 ALBUMIN (test code = GALB) 3.2 g/dL 3.5-5.5 L PROTEIN (test code = GTP) 8.1 g/dL 6.4-8.1 ALT (test code = GALT) 38 U/L 10-47 AST (test code = OXANA) 66 U/L 11-38 H ALK PHOS (test code = GALP) 171 U/L 53-128 H BILI TOTAL (test code = GTBIL) 1.0 mg/dL 0.2-1.6 GGT (test code = GGGT) 1089 U/L 5-65 H AMYLASE (test code = GAMY) 31 U/L 14-97 XR CHEST 1 VIEW PORTABLE *OW*2022-10-11 17:06:04 [facility]IR[facility] : 1970 Sex: MChest x-ray 1 viewLocation Code: [id number] HISTORY: Altered mental statusCOMPARISON: NoneCOMMENT: The lungs are clear and well inflated. The costophrenic angles are sharp. The cardiomediastinal silhouette is unremarkable. The bones are intact.IMPRESSION: No acute abnormalityElectronically signed by: Monroe Bo MD 10/11/2022 5:06 PM CDT (INCLUDES AUTOMATED DIFFERENTIAL) *2022-10-11 16:57:00 Test Item Value Reference Range Interpretation Comments WBC (test code = WBC) 13.3 10\\S\\3/uL 4.5-11.0 H RBC (test code = RBC) 4.52 10\\S\\6/uL 4.20-5.60 HGB (test code = HBG) 14.5 g/dL 14.0-18.0 HCT (test code = HCT) 44.7 % 35.0-46.0 MCV (test code = MCV) 99.0 fL 80.0-94.0 H MCH (test code = MCH) 32.1 pg 27.0-31.0 H MCHC (test code = MCHC) 32.4 g/dL 32.0-36.0 RDW (test code = RDW) 12.0 % 11.5-14.5 PLT (test code = PLT) 187 10\\S\\3/uL 130-400 MPV (test code = OMPV) 7.8 fL 6.2-10.2 NEUTROP # (test code = NE#) 10.3 10\\S\\3/uL 2.0-8.0 H LYMPH # (test code = LY#) 1.8 10\\S\\3/uL 1.2-4.0 MID # (test code = GMID#) 1.2 10\\S\\3/uL 0.0-1.1 H GRAN % (test code = GRA%) 77.5 % 35.0-73.0 H LYMPH % (test code = GLY%) 13.5 % 20.0-55.0 L MID % (test code = GMID%) 9.0 % 0.0-10.0 HEMOGLOBIN [id number] 06:29:19 Test Item Value Reference Range Interpretation Comments HEMOGLOBIN A1c (test 8.5 % 4.2-5.6 H AMERIC AN DIABETES code = 31113) ASSOCIATION IDELINES FOR HGB A1C: PREDIABETES/INC REASED [...] ALTERN ATE TESTING OR LABORATORY C ONSULTATION. [facility] has imp ortant pathology staff changes effective 08/06. New pathology s taff will provide uninter rupted, excellent patie nt care and clinical consul tation. See URL: [email or web address] UNLESS OTHE RWISE INDICATED, [facility], [facility]. [address] [place] [address] CLIA: [id number], CAP: TSH, THIRD [id number] 06:08:37 Test Item Value Reference Range Interpretation Comments TSH, THIRD 1.310 UIU/ML 0.400-4.100 UNLESS OTHERWI SE GENERATION (test INDICATED, ALL TESTING code = 2821) PERFORMED [facility] PATHOLOG[facility]. [address] [place] [id number] [facility] DIRECTOR: TED MCDONNELL M.D. CLIA NUMBER [id number] CAP ACCREDITATION N O. [id number] COMPREHENSIVE METABOLIC [id number] 04:59:38 Test Item Value Reference Range Interpretation Comments GLUCOSE (test code = 178 MG/DL 70-99 H 2216) BUN (test code = 7 MG/DL 6-20 2207) CREATININE (test 0.71 MG/DL 0.80-1.40 L code = 221) eGFR (2020 CKD-EPI) 110 >60 (test code = 63805) ML/MIN/1.73 CALC BUN/CREAT (test 10 RATIO 6-28 code = 223) SODIUM (test code = 128 MEQ/L 133-146 [...] PHOSPHATASE 106 U/L 40-121 (test code = 2203) AST (test code = 33 U/L 9-50 2217) ALT (test code = 18 U/L 5-50 2218) LIPID [id number] 04:59:38 Test Item Value Reference Range Interpretation [...] MOREINFORMATION , SEE CLIENT ANNOUNCE MENT AT [email or web address] RATIO LDL/HDL 1.43 RATIO <3.55 (test code = 2238) HEMOGLOBIN [id number] 04:52:38 Test Item Value Reference Range Interpretation Comments HEMOGLOBIN A1c (test 8.4 % 4.2-5.6 H AMERIC AN DIABETES code = 55169) ASSOCIATION IDELINES FOR HGB A1C: PREDIABETES/INC REASED [...] Interpretation Comments HEMOGLOBIN A1c (test code = 78511) 8.4 % HEMOGLOBIN A1c [ADDED]2022-01-09 00:00:00 Test Item Value Reference Range Interpretation Comments HEMOGLOBIN A1c (test code = 58977) 8.4 % COMPREHENSIVE METABOLIC PANEL [ADDED]2022-01-09 00:00:00 Test Item Value Reference Range Interpretation Comments GLUCOSE (test code = 2217) 178 MG/DL BUN (test code = 2208) 7 MG/DL CREATININE (test code = 2214) 0.71 MG/DL eGFR (2020 CKD-EPI) (test 110 ML/MIN/1.73 code = 69057) CALC BUN/CREAT (test code = 10 RATIO 2234) SODIUM (test code = 2231) 128 MEQ/L POTASSIUM (test code = 2228) 4.7 MEQ/L CHLORIDE (test code = 2215) 87 MEQ/L CARBON DIOXIDE (test code = 27 MEQ/L 2205) CALCIUM (test code = 2209) 9.7 MG/DL PROTEIN, TOTAL (test code = 8.6 G/DL 2228) ALBUMIN (test code = 2201) [...] RATIO LDL/HDL (test code = 1.43 RATIO 8) TSH, THIRD GENERATION [ADDED]2022-01-09 00:00:00 Test Item Value Reference Range Interpretation Comments TSH, THIRD GENERATION (test code 1.310 UIU/ML = 2821) TSH, THIRD GENERATION [ADDED]2022-01-09 00:00:00 Test Item Value Reference Range Interpretation Comments TSH, THIRD GENERATION (test code 1.310 UIU/ML = 2821) CBC W/AUTO [id number] 00:00:00 Test Item Value Reference Range Interpretation [...] code = 1015) 256 K/UL CBC W/AUTO [id number] 00:00:00 Test Item Value Reference Range Interpretation [...] code = 1015) 256 K/UL COMPREHENSIVE METABOLIC [id number] 00:00:00 Test Item Value Reference Range Interpretation Comments GLUCOSE (test code = 2217) 118 MG/DL BUN (test code = 2208) 10 MG/DL CREATININE (test code = 2214) 0.91 MG/DL eGFR AMER. (test code 113 ML/MIN/1.73 = 91662) eGFR NON- AMER. (test 98 ML/MIN/1.73 code = 10995) CALC BUN/CREAT (test code = 11 RATIO 2235) SODIUM (test code = 2231) 135 MEQ/L POTASSIUM (test code = 2228) 4.0 MEQ/L CHLORIDE (test code = 2215) 96 MEQ/L CARBON DIOXIDE (test code = 26 MEQ/L 2206) CALCIUM (test code = 2209) 9.7 MG/DL PROTEIN, TOTAL (test code = 8.4 G/DL 2228) ALBUMIN (test code = 2201) 4.6 G/DL CALC GLOBULIN (test code = 3.8 G/DL 2240) CALC A/G RATIO (test code = 1.2 RATIO 2234) BILIRUBIN, TOTAL (test code = 0.4 MG/DL 2206) ALKALINE PHOSPHATASE (test 90 U/L code = 2204) AST (test code = 2218) 23 U/L ALT (test code = 2219) 22 U/L LIPID [id number] 00:00:00 Test Item Value Reference Range Interpretation Comments CHOLESTEROL (test code = 2210) 194 MG/DL TRIGLYCERIDES (test code = 2232) 111 MG/DL HDL CHOLESTEROL (test code = 2220) 46 MG/DL CALC LDL CHOL (test code = 2237) 126 MG/DL RISK RATIO LDL/HDL (test code = 2.74 RATIO 2238) HEMOGLOBIN [id number] 00:00:00 Test Item Value Reference Range Interpretation Comments HEMOGLOBIN A1c (test code = 92673) 7.8 % HEMOGLOBIN [id number] 00:00:00 Test Item Value Reference Range Interpretation Comments HEMOGLOBIN A1c (test code = 39470) 7.8 % [id number] 00:00:00 Test Item Value Reference Range Interpretation Comments TSH, THIRD GENERATION (test code 9.180 UIU/ML = 2821) [id number] 00:00:00 Test Item Value Reference Range Interpretation Comments TSH, THIRD GENERATION (test code 9.180 UIU/ML = 2821) CBC W/AUTO [id number] 00:00:00 Test Item Value Reference Range Interpretation [...] code = 1015) 256 K/UL CBC W/AUTO [id number] 00:00:00 Test Item Value Reference Range Interpretation [...] code = 1015) 256 K/UL COMPREHENSIVE METABOLIC [id number] 00:00:00 Test Item Value Reference Range Interpretation Comments GLUCOSE (test code = 2217) 118 MG/DL BUN (test code = 2208) 10 MG/DL CREATININE (test code = 2214) 0.91 MG/DL eGFR AMER. (test code 113 ML/MIN/1.73 = 64259) eGFR NON- AMER. (test 98 ML/MIN/1.73 code = 46885) CALC BUN/CREAT (test code = 11 RATIO [...] CALC GLOBULIN (test code = 3.8 G/DL 2240) CALC A/G RATIO (test code = 1.2 RATIO 2234) BILIRUBIN, TOTAL (test code = 0.4 MG/DL 2206) ALKALINE PHOSPHATASE (test 90 U/L code = 2204) AST (test code = 2218) 23 U/L ALT (test code = 2219) 22 U/L LIPID [id number] 00:00:00 Test Item Value Reference Range Interpretation Comments CHOLESTEROL (test code = 2210) 194 MG/DL TRIGLYCERIDES (test code = 2232) 111 MG/DL HDL CHOLESTEROL (test code = 2220) 46 MG/DL CALC LDL CHOL (test code = 2237) 126 MG/DL RISK RATIO LDL/HDL (test code = 2.74 RATIO 2238) HEMOGLOBIN [id number] 00:00:00 Test Item Value Reference Range Interpretation Comments HEMOGLOBIN A1c (test code = 33255) 7.8 % HEMOGLOBIN [id number] 00:00:00 Test Item Value Reference Range Interpretation Comments HEMOGLOBIN A1c (test code = 93045) 7.8 % [id number] 00:00:00 Test Item Value Reference Range Interpretation Comments TSH, THIRD GENERATION (test code 9.180 UIU/ML = 2821) [id number] 00:00:00 Test Item Value Reference Range Interpretation Comments TSH, THIRD GENERATION (test code 9.180 UIU/ML = 2821) HEMOGLOBIN [id number] 00:00:00 Test Item Value Reference Range Interpretation Comments HEMOGLOBIN A1c (test code = 07438) 7.0 % HEMOGLOBIN [id number] 00:00:00 Test Item Value Reference Range Interpretation Comments HEMOGLOBIN A1c (test code = 85215) 7.0 % HEMOGLOBIN [id number] 00:00:00 Test Item Value Reference Range Interpretation Comments HEMOGLOBIN A1c (test code = 05409) 7.0 % HEMOGLOBIN [id number] 00:00:00 Test Item Value Reference Range Interpretation Comments HEMOGLOBIN A1c (test code = 38364) 7.0 % COMPREHENSIVE METABOLIC [id number] 00:00:00 Test Item Value Reference Range Interpretation Comments GLUCOSE (test code = 2217) 96 MG/DL BUN (test code = 2208) 17 MG/DL CREATININE (test code = 2214) 0.96 MG/DL eGFR AMER. (test code 107 ML/MIN/1.73 = 94295) eGFR NON- AMER. (test 92 ML/MIN/1.73 code = 27442) CALC BUN/CREAT (test code = 18 RATIO 2234) SODIUM (test code = 2231) [...] (test code = 2219) 20 U/L LIPID [id number] 00:00:00 Test Item Value Reference Range Interpretation Comments CHOLESTEROL (test code = 2210) 146 MG/DL TRIGLYCERIDES (test code = 2232) 108 MG/DL HDL CHOLESTEROL (test code = 2220) 41 MG/DL CALC LDL CHOL (test code = 2237) 83 MG/DL RISK RATIO LDL/HDL (test code = 2.03 RATIO 2238) HEMOGLOBIN [id number] 00:00:00 Test Item Value Reference Range Interpretation Comments HEMOGLOBIN A1c (test code = 36178) 7.2 % HEMOGLOBIN [id number] 00:00:00 Test Item Value Reference Range Interpretation Comments HEMOGLOBIN A1c (test code = 22856) 7.2 % [id number] 00:00:00 Test Item Value Reference Range Interpretation Comments TSH, THIRD GENERATION (test code 2.780 UIU/ML = 2821) [id number] 00:00:00 Test Item Value Reference Range Interpretation Comments TSH, THIRD GENERATION (test code 2.780 UIU/ML = 2821) COMPREHENSIVE METABOLIC [id number] 00:00:00 Test Item Value Reference Range Interpretation Comments GLUCOSE (test code = 2217) 96 MG/DL BUN (test code = 2208) 17 MG/DL CREATININE (test code = 2214) 0.96 MG/DL eGFR AMER. (test code 107 ML/MIN/1.73 = 39907) eGFR NON- AMER. (test 92 ML/MIN/1.73 code = 32418) CALC BUN/CREAT (test code = 18 RATIO [...] A/G RATIO (test code = 1.4 RATIO 2234) BILIRUBIN, TOTAL (test code = 0.6 MG/DL 2207) ALKALINE PHOSPHATASE (test 83 U/L code = 2204) AST (test code = 2218) 26 U/L ALT (test code = 2219) 20 U/L LIPID [id number] 00:00:00 Test Item Value Reference Range Interpretation Comments CHOLESTEROL (test code = 2210) 146 MG/DL TRIGLYCERIDES (test code = 2232) 108 MG/DL HDL CHOLESTEROL (test code = 2220) 41 MG/DL CALC LDL CHOL (test code = 2237) 83 MG/DL RISK RATIO LDL/HDL (test code = 2.03 RATIO 2238) HEMOGLOBIN [id number] 00:00:00 Test Item Value Reference Range Interpretation Comments HEMOGLOBIN A1c (test code = 30816) 7.2 % HEMOGLOBIN [id number] 00:00:00 Test Item Value Reference Range Interpretation Comments HEMOGLOBIN A1c (test code = 87462) 7.2 % [id number] 00:00:00 Test Item Value Reference Range Interpretation Comments TSH, THIRD GENERATION (test code 2.780 UIU/ML = 2821) [id number] 00:00:00 Test Item Value Reference Range Interpretation Comments TSH, THIRD GENERATION (test code 2.780 UIU/ML = 2821) HEMOGLOBIN [id number] 00:00:00 Test Item Value Reference Range Interpretation Comments HEMOGLOBIN A1c (test code = 06541) 14.3 % HEMOGLOBIN [id number] 00:00:00 Test Item Value Reference Range Interpretation Comments HEMOGLOBIN A1c (test code = 17618) 14.3 % [id number] 00:00:00 Test Item Value Reference Range Interpretation Comments TESTOSTERONE (test code = 2830) 507 NG/DL [id number] 00:00:00 Test Item Value Reference Range Interpretation Comments TSH, THIRD GENERATION (test code 7.490 UIU/ML = 2821) [id number] 00:00:00 Test Item Value Reference Range Interpretation Comments TSH, THIRD GENERATION (test code 7.490 UIU/ML = 2821) HEMOGLOBIN [id number] 00:00:00 Test Item Value Reference Range Interpretation Comments HEMOGLOBIN A1c (test code = 95869) 14.3 % HEMOGLOBIN [id number] 00:00:00 Test Item Value Reference Range Interpretation Comments HEMOGLOBIN A1c (test code = 87143) 14.3 % [id number] 00:00:00 Test Item Value Reference Range Interpretation Comments TESTOSTERONE (test code = 2830) 507 NG/DL [id number] 00:00:00 Test Item Value Reference Range Interpretation Comments TSH, THIRD GENERATION (test code 7.490 UIU/ML = 2821) [id number] 00:00:00 Test Item Value Reference Range Interpretation Comments TSH, THIRD GENERATION (test code 7.490 UIU/ML = 2821) COMPREHENSIVE METABOLIC [id number] 00:00:00 Test Item Value Reference Range Interpretation Comments GLUCOSE (test code = 2217) 362 MG/DL BUN (test code = 2208) 16 MG/DL CREATININE (test code = 2214) 0.88 MG/DL eGFR AMER. (test code 118 ML/MIN/1.73 = 23608) eGFR NON- AMER. (test 102 ML/MIN/1.73 code = 91687) CALC BUN/CREAT (test code = 18 RATIO [...] CALC GLOBULIN (test code = 3.9 G/DL 2240) CALC A/G RATIO (test code = 1.1 RATIO 4) BILIRUBIN, TOTAL (test code = 0.3 MG/DL 2206) ALKALINE PHOSPHATASE (test 127 U/L code = 2204) AST (test code = 2218) 14 U/L ALT (test code = 2219) 16 U/L LIPID [id number] 00:00:00 Test Item Value Reference Range Interpretation Comments CHOLESTEROL (test code = 2210) 174 MG/DL TRIGLYCERIDES (test code = 2232) 226 MG/DL HDL CHOLESTEROL (test code = 2220) 37 MG/DL CALC LDL CHOL (test code = 2237) 92 MG/DL RISK RATIO LDL/HDL (test code = 2.48 RATIO 2238) [id number] 00:00:00 Test Item Value Reference Range Interpretation Comments GGT (test code = 2216) 63 U/L COMPREHENSIVE METABOLIC [id number] 00:00:00 Test Item Value Reference Range Interpretation Comments GLUCOSE (test code = 2217) 362 MG/DL BUN (test code = 2208) 16 MG/DL CREATININE (test code = 2214) 0.88 MG/DL eGFR AMER. (test code 118 ML/MIN/1.73 = 83291) eGFR NON- AMER. (test 102 ML/MIN/1.73 code = 31044) CALC BUN/CREAT (test code = 18 RATIO [...] CALC GLOBULIN (test code = 3.9 G/DL 2240) CALC A/G RATIO (test code = 1.1 RATIO 4) BILIRUBIN, TOTAL (test code = 0.3 MG/DL 2206) ALKALINE PHOSPHATASE (test 127 U/L code = 2204) AST (test code = 2218) 14 U/L ALT (test code = 2219) 16 U/L LIPID [id number] 00:00:00 Test Item Value Reference Range Interpretation Comments CHOLESTEROL (test code = 2210) 174 MG/DL TRIGLYCERIDES (test code = 2232) 226 MG/DL HDL CHOLESTEROL (test code = 2220) 37 MG/DL CALC LDL CHOL (test code = 2237) 92 MG/DL RISK RATIO LDL/HDL (test code = 2.48 RATIO 2238) [id number] 00:00:00 Test Item Value Reference Range Interpretation Comments GGT (test code = 2216) 63 U/L CBC W/AUTO [id number] 00:00:00 Test Item Value Reference Range Interpretation [...] code = 1015) 195 K/UL CBC W/AUTO [id number] 00:00:00 Test Item Value Reference Range Interpretation [...] code = 1015) 195 K/UL COMPREHENSIVE METABOLIC [id number] 00:00:00 Test Item Value Reference Range Interpretation Comments GLUCOSE (test code = 2217) 539 MG/DL BUN (test code = 2208) 11 MG/DL CREATININE (test code = 2214) 0.92 MG/DL eGFR AMER. (test code 114 ML/MIN/1.73 = 74190) eGFR NON- AMER. (test 98 ML/MIN/1.73 code = 65637) CALC BUN/CREAT (test code = 12 RATIO [...] CALC GLOBULIN (test code = 4.1 G/DL 2239) CALC A/G RATIO (test code = 1.1 RATIO 2233) BILIRUBIN, TOTAL (test code = 0.4 MG/DL 2206) ALKALINE PHOSPHATASE (test 145 U/L code = 2204) AST (test code = 2218) 20 U/L ALT (test code = 2219) 23 U/L HEMOGLOBIN [id number] 00:00:00 Test Item Value Reference Range Interpretation Comments HEMOGLOBIN A1c (test code = 09513) >15.5 % HEMOGLOBIN [id number] 00:00:00 Test Item Value Reference Range Interpretation Comments HEMOGLOBIN A1c (test code = 53332) >15.5 % PSA, [id number] 00:00:00 Test Item Value Reference Range Interpretation Comments PSA, TOTAL (test code = 2606) 0.27 NG/ML PSA, [id number] 00:00:00 Test Item Value Reference Range Interpretation Comments PSA, TOTAL (test code = 2606) 0.27 NG/ML [id number] 00:00:00 Test Item Value Reference Range Interpretation Comments TSH, THIRD GENERATION (test code 5.040 UIU/ML = 2821) [id number] 00:00:00 Test Item Value Reference Range Interpretation Comments TSH, THIRD GENERATION (test code 5.040 UIU/ML = 2821) CBC W/AUTO [id number] 00:00:00 Test Item Value Reference Range Interpretation [...] code = 1015) 195 K/UL CBC W/AUTO [id number] 00:00:00 Test Item Value Reference Range Interpretation [...] code = 1015) 195 K/UL COMPREHENSIVE METABOLIC [id number] 00:00:00 Test Item Value Reference Range Interpretation Comments GLUCOSE (test code = 2217) 539 MG/DL BUN (test code = 2208) 11 MG/DL CREATININE (test code = 2214) 0.92 MG/DL eGFR AMER. (test code 114 ML/MIN/1.73 = 71185) eGFR NON- AMER. (test 98 ML/MIN/1.73 code = 11674) CALC BUN/CREAT (test code = 12 RATIO [...] CALC GLOBULIN (test code = 4.1 G/DL 2240) CALC A/G RATIO (test code = 1.1 RATIO 2234) BILIRUBIN, TOTAL (test code = 0.4 MG/DL 2206) ALKALINE PHOSPHATASE (test 145 U/L code = 2204) AST (test code = 2218) 20 U/L ALT (test code = 2219) 23 U/L HEMOGLOBIN [id number] 00:00:00 Test Item Value Reference Range Interpretation Comments HEMOGLOBIN A1c (test code = 35557) >15.5 % HEMOGLOBIN [id number] 00:00:00 Test Item Value Reference Range Interpretation Comments HEMOGLOBIN A1c (test code = 97036) >15.5 % PSA, [id number] 00:00:00 Test Item Value Reference Range Interpretation Comments PSA, TOTAL (test code = 2606) 0.27 NG/ML PSA, [id number] 00:00:00 Test Item Value Reference Range Interpretation Comments PSA, TOTAL (test code = 2606) 0.27 NG/ML [id number] 00:00:00 Test Item Value Reference Range Interpretation Comments TSH, THIRD GENERATION (test code 5.040 UIU/ML = 2821) [id number] 00:00:00 Test Item Value Reference Range Interpretation Comments TSH, THIRD GENERATION (test code 5.040 UIU/ML = 2821) CBC W/AUTO [id number] 00:00:00 Test Item Value Reference Range Interpretation [...] code = 1015) 236 K/UL CBC W/AUTO [id number] 00:00:00 Test Item Value Reference Range Interpretation [...] code = 1015) 236 K/UL COMPREHENSIVE METABOLIC [id number] 00:00:00 Test Item Value Reference Range Interpretation Comments GLUCOSE (test code = 2217) 207 MG/DL BUN (test code = 2208) 11 MG/DL CREATININE (test code = 2214) 0.89 MG/DL eGFR AMER. (test code 117 ML/MIN/1.73 = 19905) eGFR NON- AMER. (test 101 ML/MIN/1.73 code = 36295) CALC BUN/CREAT (test code = 12 RATIO 2235) SODIUM (test code = 2231) 134 MEQ/L POTASSIUM (test code = 2228) 4.6 MEQ/L CHLORIDE (test code = 2215) 95 MEQ/L CARBON DIOXIDE (test code = 25 MEQ/L 2206) CALCIUM (test code = 2209) 9.5 MG/DL PROTEIN, TOTAL (test code = 8.4 G/DL 2228) ALBUMIN (test code = 2201) 4.4 G/DL CALC GLOBULIN (test code = 4.0 G/DL 2240) CALC A/G RATIO (test code = 1.1 RATIO 2234) BILIRUBIN, TOTAL (test code = 0.6 MG/DL 2206) ALKALINE PHOSPHATASE (test 130 U/L code = 2204) AST (test code = 2218) 20 U/L ALT (test code = 2219) 18 U/L [id number] 00:00:00 Test Item Value Reference Range Interpretation Comments TSH, THIRD GENERATION (test code 5.830 UIU/ML = 2821) [id number] 00:00:00 Test Item Value Reference Range Interpretation Comments TSH, THIRD GENERATION (test code 5.830 UIU/ML = 2821) CBC W/AUTO [id number] 00:00:00 Test Item Value Reference Range Interpretation [...] code = 1015) 236 K/UL CBC W/AUTO [id number] 00:00:00 Test Item Value Reference Range Interpretation [...] code = 1015) 236 K/UL COMPREHENSIVE METABOLIC [id number] 00:00:00 Test Item Value Reference Range Interpretation Comments GLUCOSE (test code = 2217) 207 MG/DL BUN (test code = 2208) 11 MG/DL CREATININE (test code = 2214) 0.89 MG/DL eGFR AMER. (test code 117 ML/MIN/1.73 = 49406) eGFR NON- AMER. (test 101 ML/MIN/1.73 code = 83793) CALC BUN/CREAT (test code = 12 RATIO [...] ALT (test code = 2219) 18 U/L [id number] 00:00:00 Test Item Value Reference Range Interpretation Comments TSH, THIRD GENERATION (test code 5.830 UIU/ML = 2821) [id number] 00:00:00 Test Item Value Reference Range Interpretation Comments TSH, THIRD GENERATION (test code 5.830 UIU/ML = 2821) URINALYSIS (CULTURE IF INDICATED)[id number] 00:00:00 Test Item [...] TEST NOT PERFORMED = 1512) CBC W/AUTO [id number] 00:00:00 Test Item Value Reference Range Interpretation [...] code = 1015) 239 K/UL CBC W/AUTO [id number] 00:00:00 Test Item Value Reference Range Interpretation [...] (test code = 1015) 239 K/UL HEMOGLOBIN [id number] 00:00:00 Test Item Value Reference Range Interpretation Comments HEMOGLOBIN A1c (test code = 36779) 8.0 % HEMOGLOBIN [id number] 00:00:00 Test Item Value Reference Range Interpretation Comments HEMOGLOBIN A1c (test code = 24344) 8.0 % LIPID [id number] 00:00:00 Test Item Value Reference Range Interpretation Comments CHOLESTEROL (test code = 2210) 157 MG/DL TRIGLYCERIDES (test code = 2232) 80 MG/DL HDL CHOLESTEROL (test code = 2220) 46 MG/DL CALC LDL CHOL (test code = 2237) 95 MG/DL RISK RATIO LDL/HDL (test code = 2.07 RATIO 2238) COMPREHENSIVE METABOLIC [id number] 00:00:00 Test Item Value Reference Range Interpretation Comments GLUCOSE (test code = 2217) 129 MG/DL BUN (test code = 2208) 9 MG/DL CREATININE (test code = 2214) 0.84 MG/DL eGFR AMER. (test code 120 ML/MIN/1.73 = 71138) eGFR NON- AMER. (test 104 ML/MIN/1.73 code = 22505) CALC BUN/CREAT (test code = 11 RATIO 5) SODIUM (test code = 2231) 136 MEQ/L POTASSIUM (test code = 2228) 4.4 MEQ/L CHLORIDE (test code = 2215) 94 MEQ/L CARBON DIOXIDE (test code = 28 MEQ/L 2205) CALCIUM (test code = 2209) 10.4 MG/DL PROTEIN, TOTAL (test code = 9.2 G/DL 2228) ALBUMIN (test code = 220) 4.5 G/DL CALC GLOBULIN (test code = 4.7 G/DL 2239) CALC A/G RATIO (test code = 1.0 RATIO 2233) BILIRUBIN, TOTAL (test code = 0.8 MG/DL 2206) ALKALINE PHOSPHATASE (test 114 U/L code = 2204) AST (test code = 2218) 22 U/L ALT (test code = 2219) 19 U/L [id number] 00:00:00 Test Item Value Reference Range Interpretation Comments TSH (test code = 2821) 6.110 UIU/ML [id number] 00:00:00 Test Item Value Reference Range Interpretation Comments TSH (test code = 2821) 6.110 UIU/ML [id number] 00:00:00 Test Item Value Reference Range Interpretation Comments LIPASE (test code = 2057) 10 U/L [id number] 00:00:00 Test Item Value Reference Range Interpretation Comments LIPASE (test code = 2057) 10 U/L CBC W/AUTO [id number] 00:00:00 Test Item Value Reference Range Interpretation [...] code = 1015) 239 K/UL CBC W/AUTO [id number] 00:00:00 Test Item Value Reference Range Interpretation [...] (test code = 1015) 239 K/UL HEMOGLOBIN [id number] 00:00:00 Test Item Value Reference Range Interpretation Comments HEMOGLOBIN A1c (test code = 16135) 8.0 % HEMOGLOBIN [id number] 00:00:00 Test Item Value Reference Range Interpretation Comments HEMOGLOBIN A1c (test code = 45034) 8.0 % LIPID [id number] 00:00:00 Test Item Value Reference Range Interpretation Comments CHOLESTEROL (test code = 2210) 157 MG/DL TRIGLYCERIDES (test code = 2232) 80 MG/DL HDL CHOLESTEROL (test code = 2220) 46 MG/DL CALC LDL CHOL (test code = 2237) 95 MG/DL RISK RATIO LDL/HDL (test code = 2.07 RATIO 2238) COMPREHENSIVE METABOLIC [id number] 00:00:00 Test Item Value Reference Range Interpretation Comments GLUCOSE (test code = 2217) 129 MG/DL BUN (test code = 2208) 9 MG/DL CREATININE (test code = 2214) 0.84 MG/DL eGFR AMER. (test code 120 ML/MIN/1.73 = 74561) eGFR NON- AMER. (test 104 ML/MIN/1.73 code = 28652) CALC BUN/CREAT (test code = 11 RATIO 2235) SODIUM (test code = 2231) 136 MEQ/L POTASSIUM (test code = 2228) 4.4 MEQ/L CHLORIDE (test code = 2215) 94 MEQ/L CARBON DIOXIDE (test code = 28 MEQ/L 2205) CALCIUM (test code = 2209) 10.4 MG/DL PROTEIN, TOTAL (test code = 9.2 G/DL 2228) ALBUMIN (test code = 220) 4.5 G/DL CALC GLOBULIN (test code = 4.7 G/DL 2239) CALC A/G RATIO (test code = 1.0 RATIO 2233) BILIRUBIN, TOTAL (test code = 0.8 MG/DL 2206) ALKALINE PHOSPHATASE (test 114 U/L code = 2204) AST (test code = 2218) 22 U/L ALT (test code = 2219) 19 U/L [id number] 00:00:00 Test Item Value Reference Range Interpretation Comments TSH (test code = 2821) 6.110 UIU/ML [id number] 00:00:00 Test Item Value Reference Range Interpretation Comments TSH (test code = 2821) 6.110 UIU/ML [id number] 00:00:00 Test Item Value Reference Range Interpretation Comments LIPASE (test code = 2058) 10 U/L [id number] 00:00:00 Test Item Value Reference Range Interpretation Comments LIPASE (test code = 2058) 10 U/L BLOOD [id number] 17:00:00 Test Item Value Reference Range Interpretation Comments CULTURE (BEAKER) (test No growth in 5 days code = 1095) BLOOD [id number] 11:24:00 Test Item Value Reference Range Interpretation [...] Nervous System infection) Coagulase Negative Staphylococcus (CoNS) DETECTEDmecA NOT DETECTEDOther organisms and resistance markers not containedin this PCR panel cannot be excluded and follow-up of traditional culture results is required. This sample was tested at the [facility] Clinical Microbiology Laboratory using the [employer] ([employer]) Blood Culture ID Panel. This test is FDA cleared for in vitro diagnostic use and has been verified and approved by the [facility] Clinical Microbiology laboratory for clinical use. Reference Range: Not DetectedBLOOD [id number] 06:24:00 Test Item Value Reference Range Interpretation Comments CULTURE ([facility]) (test No growth in 5 days code = 1095) POCT-GLUCOSE [id number] 12:29:00 Test Item Value Reference Range Interpretation Comments POC-GLUCOSE METER 96 mg/dL 70-110 TESTED AT [place] [address] ([facility]) (test code = [facility] [address] 1538) POCT-GLUCOSE [id number] 07:22:00 Test Item Value Reference Range Interpretation Comments POC-GLUCOSE METER 82 mg/dL 70-110 TESTED AT [place] [address] ([facility]) (test code = [facility] [address] 1538) [id number] 05:06:00 Test Item Value Reference Range Interpretation Comments LIPASE (BEAKER) (test code = 749) 113 U/L 8-78 H COMPREHENSIVE METABOLIC [id number] 05:06:00 Test Item Value Reference Range Interpretation [...] PATIEN TS. CBC W/PLT COUNT & AUTO [id number] 04:48:00 Test Item Value Reference Range Interpretation [...] PERCENT (BEAKER) (test code = 2801) POCT-GLUCOSE [id number] 00:39:00 Test Item Value Reference Range Interpretation Comments POC-GLUCOSE METER 86 mg/dL 70-[address] [facility] 6720 (BEAKER) (test code = [facility] [address] 1538) U/S, ABDOMINAL, [id number] 18:40:00Reason for exam:->acute pancreatitis, evaluate gallbladder for [...] suggestive of cirrhosis. Trace ascites. Signed: Dawood Comer Verified Date/Time: 08/03/2017 18:40:23 Reading Location: [facility] [id number] Ultrasound Reading Room MISCELLANEOUS LAB [id number] 14:45:00 Test Item Value Reference Range Interpretation Comments SCAN RESULT (test code = 2504694) Result comments: Coagulase Negative Staphylococcus Species (CoNS) DETECTED, Methicillin Susceptible First line therapy: cefazolin, nafcillin (nafcillin preferred for Central Nervous System infection) Coagulase Negative Staphylococcus (CoNS) DETECTED mecA NOT DETECTED Other organisms and resistance markers not contained in this PCR panel cannot be excluded and follow-up of traditional culture results is required. This sample was tested at the [facility] Clinical Microbiology Laboratory using the [employer] ([employer]) Blood Culture ID Panel. This test is FDA cleared for in vitro diagnostic use and has been benjamin ified and approved by the [facility] Clinical Microbiology laboratory for clinical use. Reference Range: Not DetectedPOCT-GLUCOSE [id number] 13:54:00 Test Item Value Reference Range Interpretation Comments POC-GLUCOSE METER 84 mg/dL 70-110 TESTED AT [place] [address] ([facility]) [facility] [employer] [facility] [address] 1538) POCT-GLUCOSE [id number] 12:20:00 Test Item Value Reference Range Interpretation Comments POC-GLUCOSE METER 91 mg/dL 70-110 TESTED AT [place] [address] ([facility]) (test code = [facility] [employer] [facility] [id number] 1538) POCT-GLUCOSE [id number] 06:38:00 Test Item Value Reference Range Interpretation Comments POC-GLUCOSE METER 89 mg/dL 70-110 TESTED AT [place] [address] ([facility]) (test code = [facility] [address] 1538) [id number] 05:40:00 Test Item Value Reference Range Interpretation Comments MAGNESIUM ([facility]) (test code = 1.8 mg/dL 1.6-2.6 627) BASIC METABOLIC [id number] 05:40:00 Test Item Value Reference Range Interpretation Comments SODIUM (BEAKER) 135 meq/L 136-145 L (test code = [...] APPLICABLE FOR DIALYSIS PATIEN TS. HEPATIC FUNCTION [id number] 05:40:00 Test Item Value Reference Range Interpretation [...] (test code = 19 U/L 6-55 347) [id number] 05:40:00 Test Item Value Reference Range Interpretation Comments LIPASE (BEAKER) (test code = 749) 154 U/L 8-78 H CBC W/PLT COUNT & AUTO [id number] 05:10:00 Test Item Value Reference Range Interpretation [...] PERCENT (BEAKER) (test code = 2801) POCT-GLUCOSE [id number] 00:06:00 Test Item Value Reference Range Interpretation Comments POC-GLUCOSE METER 107 mg/dL 70-110 TESTED AT [place] [address] ([facility]) (test code = [facility] 1538) [address] POCT-GLUCOSE [id number] 18:16:00 Test Item Value Reference Range Interpretation Comments POC-GLUCOSE METER 101 mg/dL 70-110 TESTED AT [place] [address] ([facility]) (test code = [facility] 1538) [id number] LIPID [id number] 16:17:00 Test Item Value Reference Range Interpretation Comments TRIGLYCERIDES ([facility]) (test code = 65 mg/dL 540) CHOLESTEROL ([facility]) (test code = 139 mg/dL 631) HDL CHOLESTEROL ([facility]) (test code 48 mg/dL = 976) LDL CHOLESTEROL CALCULATED ([facility]) 78 mg/dL (test code = 633) Triglyceride Reference Range: Low Risk <150 Borderline 150-199 High Risk 200- 499 Very High Risk >=500Cholesterol Reference Range: Low Risk <200 Borderline 200-239 High Risk >240HDL Cholesterol Reference Range: Low Risk >=60 High Risk <40LDL Cholesterol Reference Range: Optimal <100 Near Optimal 100-129 Borderline 130-159 High 160-189 Very High >=190POCT-GLUCOSE [id number] 12:27:00 Test Item Value Reference Range Interpretation Comments POC-GLUCOSE METER 113 mg/dL 70-110 H TESTED AT [place] [address] ([facility]) (test code = [facility] 1538) [address] HEMOGLOBIN [id number] 10:30:00 Test Item Value Reference Range Interpretation Comments HEMOGLOBIN A1C ([facility]) (test code = 6.4 % 4.3-6.1 H 368) POCT-GLUCOSE [id number] 06:23:00 Test Item Value Reference Range Interpretation Comments POC-GLUCOSE METER 96 mg/dL 70-110 TESTED AT [place] [address] ([facility]) (test code = [facility] [address] 1538) [id number] 06:02:00 Test Item Value Reference Range Interpretation Comments MAGNESIUM ([facility]) (test code = 1.5 mg/dL 1.6-2.6 L 627) BASIC METABOLIC [id number] 06:02:00 Test Item Value Reference Range Interpretation [...] APPLICABLE FOR DIALYSIS PATIEN TS. HEPATIC FUNCTION [id number] 06:02:00 Test Item Value Reference Range Interpretation [...] (test code = 19 U/L 6-55 347) [id number] 06:02:00 Test Item Value Reference Range Interpretation Comments LIPASE (BEAKER) (test code = 749) 419 U/L 8-78 H CBC W/PLT COUNT & AUTO [id number] 05:05:00 Test Item Value Reference Range Interpretation [...] 0-1 PERCENT (BEAKER) (test code = 2801) URINALYSIS W/ REFLEX URINE [id number] 00:30:00 Test Item Value Reference Range Interpretation [...] (test code = 2795) RAPID DRUG SCREEN, [id number] 00:14:00 Test Item Value Reference Range Interpretation [...] situations. Chain of custody not maintained. Some nesl-isr-heiiyec medications, as well as adulterants, may cause inaccurate results. Clinical correlation should be applied. Kamila comprehensive drug screen or confirmation of a detected drug may be performed upon request.POCT-GLUCOSE [id number] 23:37:00 Test Item Value Reference Range Interpretation Comments POC-GLUCOSE METER 119 mg/dL 70-[address] [facility] [address] ([facility]) (test code = [place] 1538) [address] CBC W/PLT COUNT & AUTO [id number] 22:58:00 Test Item Value Reference Range Interpretation [...] Normal = 762) HIV-1 ANTIGEN WITH HIV-1/2 [id number] 22:55:00 Test Item Value Reference Range Interpretation Comments HIV-1 ANTIGEN WITH HIV 1\\T\\2 Nonreactive Nonreactive ANTIBODY (2) (BEAKER) (test code = 2586) LIPID [id number] 22:34:00 Test Item Value Reference Range Interpretation [...] 100-129 Borderline 130-159 High 160-189 Very High >=190HEPATIC FUNCTION [id number] 22:34:00 Test Item Value Reference Range Interpretation [...] Specimen slightly (test code = 347) hemolyzed [id number] 22:34:00 Test Item Value Reference Range Interpretation Comments CALCIUM (BEAKER) (test code = 697) 8.7 mg/dL 8.4-10.2 BASIC METABOLIC [id number] 22:34:00 Test Item Value Reference Range Interpretation [...] S NOT APPLICABLE FOR DIALYSIS PATIEN TS. [id number] 22:34:00 Test Item Value Reference Range Interpretation Comments LIPASE (BEAKER) (test code = 749) 716 U/L 8-78 H [id number] 22:34:00 Test Item Value Reference Range Interpretation Comments MAGNESIUM (BEAKER) 1.8 mg/dL 1.6-2.6 Specimen slightly (test code = 627) hemolyzed [id number] 22:25:00 Test Item Value Reference Range Interpretation [...]
--- NOTE | 2022-11-28 10:56 | RAD REPORT ---
EXAM DESCRIPTION: CT - Head Brain Wo Cont - 11/28/2022 10:31 am CLINICAL HISTORY: fall. Hypoglycemia COMPARISON: Head Brain Wo Cont dated 01/30/2022 TECHNIQUE: Noncontrast head CT images were obtained without IV contrast. Multiplanar reformats were generated and reviewed. All CT scans are performed using dose optimization technique as appropriate and may include automated exposure control or mA/KV adjustment according to patient size. FINDINGS: No intracranial hemorrhage, mass, or edema. Midline structures are unremarkable. Normal ventricular caliber for age. Mayorga-white matter differentiation is preserved, without evidence of acute infarct. No abnormal extra- axial fluid collections. Mastoid air cells and visualized portions of the paranasal sinuses are clear. No acute bony findings. IMPRESSION: No evidence of an acute intracranial process.
[2022-11-28 11:11] LABS: Absolute Lymphocytes (CBC) 0.7 K/uL (0.7-4.9); Hematocrit 37.2 % (39.6-49.0); Lymphocytes % 10.5 % (15.3-44.8); MCV 88.9 fL (80-100); MPV 7.2 fL (7.6-11.3); RBC Red Blood Cell Count 4.19 M/uL (4.33-5.43)
[2022-11-28 11:36] LABS: Albumin 3.6 g/dL (3.4-5.0); Bilirubin Total 0.7 mg/dL (0.2-1.0); Magnesium 1.8 mg/dL (1.6-2.4); Potassium 3.6 mEq/L (3.5-5.1); Protein, Total 9.3 g/dL (6.4-8.2); Troponin High Sensitivity 5.5 pg/mL (<58.9)
[2022-11-28 11:38] LABS: Specific Gravity < 1.005 (1.005-1.030); Urine Bacteria <20 /HPF (<20); Urine Bilirubin NEGATIVE (Negative); Urine Blood Negative (Negative); Urine Clarity Clear (Clear); Urine Color Colorless (Yellow); Urine Glucose 1+ (Negative); Urine Protein NEGATIVE (Negative); Urine RBC None Seen /HPF (None Seen); Urine Urobilinogen Normal (Normal); Urine pH 6.5 (5.0-7.0)
--- NOTE | 2022-11-28 11:52 | RAD REPORT ---
[facility]38 [facility] CLINICAL HISTORY: syncope COMPARISON: Chest Single View dated 01/30/2022; Chest Single View dated 08/01/2017; CHEST SINGLE VIEW dated 12/05/2011 TECHNIQUE: Portable AP view of the chest. FINDINGS: The lungs are clear. No pneumothorax or effusion. The cardiomediastinal contours are unre markable. IMPRESSION: No acute cardiopulmonary process.
--- NOTE | 2022-11-28 11:53 | RAD REPORT ---
EXAM DESCRIPTION: RAD - Hip Right 2 View - 11/28/2022 11:38 am CLINICAL HISTORY: PAIN COMPARISON: No comparisons TECHNIQUE: Right hip, single-view. FINDINGS: There is no fracture or dislocation. No acute or destructive bony process seen. IMPRESSION: No acute findings of the right hip.
--- NOTE | 2022-11-28 13:49 | ER ---
Nurse's Notes [facility] Name: Brigido Burgess Age: 52 yrs Sex: Male : 1970 Arrival Date: 11/28/2022 Time: 10:10 Bed 17 Private MD: Diagnosis: Drug-induced hypoglycemia without coma Presentation: 11/28 10:12 Chief complaint: EMS states: They were called to patient's home for low blood sugar. 10 EMS states that they were called at 8AM and pt received D10 and patient refused to come to hospital. EMS was called a 2nd time for low blood sugar and fall. Pts BGL for EMS was 47 and patient received D10 250mL. BGL upon arrival 133. Pt has right hip pain and does not recall the fall. Coronavirus screen: Vaccine status: Patient reports receiving the 2nd dose of the covid vaccine. Client denies travel out of the [place] in the last 14 days. At this time, the client does not indicate any symptoms associated with coronavirus-19. Ebola Screen: Patient denies travel to an Ebola-affected area in the 21 days before illness onset. No symptoms or risks identified at this time. Initial Sepsis Screen: Does the patient meet any 2 criteria? No. Patient's initial sepsis screen is negative. Does the patient have a suspected source of infection? No. Patient's initial sepsis screen is negative. Risk Assessment: Do you want to hurt yourself or someone else? Patient reports no desire to harm self or others. Onset of symptoms was November 28, 2022. Care prior to arrival: Medication(s) given: D10 IV initiated. 20 GA, 22 GA, in the left in the right antecubital area, hand. 10:12 Method Of Arrival: EMS: [facility] 10 10:12 Acuity: SIDRA 3 cm10 Historical: - Allergies: 10:15 No Known Allergies; cm10 - PMHx: 10:15 Diabetes - NIDDM; Hypertension; Cerebrovascular accident; cm10 - Immunization history:: Adult Immunizations unknown. - Social history:: Smoking status: Patient denies any tobacco usage or history of. - Family history:: not pertinent. Screenin:38 [facility] ED Fall Risk Assessment (Adult) History of falling in the last 3 months, kc6 including since admission Yes- single mechanical fall (1 pt) Confusion or Disorientation No (0 pts) Intoxicated or Sedated No (0 pts) Impaired Gait No (0 pts) Mobility Assist Device Used No (0 pt) Altered Elimination No (0 pt) Score/Fall Risk Level 0 - 2 = Low Risk Oriented to surroundings, Maintained a safe environment, Educated pt \T\ family on fall prevention, incl call for assistance when getting out of bed, Assessed \T\ reinforced patient's understanding of fall precautions, Hourly rounding (assess needs \T\ fall precautionary measures) done. Abuse screen: Denies threats or abuse. Denies injuries from another. Nutritional screening: No deficits noted. Tuberculosis screening: No symptoms or risk factors identified. Assessment: 10:37 General: Appears in no apparent distress. comfortable, Behavior is calm, cooperative, kc6 appropriate for age. Pain: Complains of pain in right hip. Neuro: Abdi Agitation-Sedation Scale (RASS): 0 - Alert and Calm Level of Consciousness is awake, alert, obeys commands, Oriented to person, place, time, situation, Appropriate for age. Cardiovascular: Capillary refill < 3 seconds. Respiratory: Airway is patent Trachea midline Respiratory effort is even, unlabored, Respiratory pattern is regular, symmetrical. GI: No signs and/or symptoms were reported involving the gastrointestinal system. : No signs and/or symptoms were reported regarding the genitourinary system. EENT: No signs and/or symptoms were reported regarding the EENT system. Derm: No signs and/or symptoms reported regarding the dermatologic system. Skin is intact, Skin is pink, warm \T\ dry. Musculoskeletal: No signs and/or symptoms reported regarding the musculoskeletal system. Circulation, motion, and sensation intact. Capillary refill < 3 seconds, Range of motion: intact in all extremities. 11:14 Reassessment: Patient appears in no apparent distress at this time. No changes from kc6 previously documented assessment. Patient and/or family updated on plan of care and expected duration. Pain level reassessed. Patient is alert, oriented x 3, equal unlabored respirations, skin warm/dry/pink. 12:15 Reassessment: Patient appears in no apparent distress at this time. No changes from kc6 previously documented assessment. Patient and/or family updated on plan of care and expected duration. Pain level reassessed. Patient is alert, oriented x 3, equal unlabored respirations, skin warm/dry/pink. 13:11 Reassessment: Patient appears in no apparent distress at this time. No changes from kc6 previously documented assessment. Patient and/or family updated on plan of care and expected duration. Pain level reassessed. Patient is alert, oriented x 3, equal unlabored respirations, skin warm/dry/pink. 13:51 Reassessment: Patient appears in no apparent distress at this time. No changes from kc6 previously documented assessment. Patient and/or family updated on plan of care and expected duration. Pain level reassessed. Patient is alert, oriented x 3, equal unlabored respirations, skin warm/dry/pink. 15:13 Reassessment: please see [facility] for further charting. kc6 Vital Signs: 10:12 BP 157 / 95; Pulse 96; Resp 18; Pulse Ox 100% on R/A; Weight 90.72 kg; Height 5 ft. 11 cm10 in. ; 11:14 BP 116 / 61; Pulse 83; Resp 18 S; Pulse Ox 94% on R/A; kc6 11:52 Temp 98.6(O); kc6 12:16 BP 125 / 65; Pulse 82; Resp 19 S; Pulse Ox 100% on R/A; kc6 13:11 BP 136 / 72; Pulse 88; Resp 17 S; Pulse Ox 99% on R/A; kc6 13:51 BP 128 / 68; Pulse 85; Resp 17 S; Pulse Ox 100% on R/A; kc6 21:00 BP 130 / 77; Pulse 101; Resp 16; Temp 99.1(O); Pulse Ox 100% on R/A; jb4 10:12 Body Mass Index 27.89 (90.72 kg, 180.34 cm) cm10 ED Course: 10:11 Patient arrived in ED. kc6 10:12 Mejia Meehan MD is Attending Physician. rt 10:14 Dea Gibbs, NICOL is Primary Nurse. kc6 10:15 Triage completed. cm10 10:16 Arm band placed on Patient placed in an exam room, on a stretcher. cm10 10:22 Troponin High Sensitivity Sent. mm9 10:22 Magnesium Sent. mm9 10:22 CMP Sent. mm9 10:22 CBC with Diff Sent. mm9 10:22 Initial lab(s) drawn, by me, sent to lab. Maintain EMS IV. Dressing intact. Good blood mm9 return noted. Site clean \T\ dry. 10:23 Patient has correct armband on for positive identification. Bed in low position. Call mm9 light in reach. Side rails up X2. Adult w/ patient. Warm blanket given. monitoring tech on. Pulse ox on. 10:28 EKG done, by ED staff, reviewed by Mejia Meehan MD. em1 10:31 CT Head Brain wo Cont In Process Unspecified. EDMS 10:58 Inserted saline lock: 20 gauge in left antecubital area, using aseptic technique. Blood mm9 collected. 11:40 Hip Right 2 View XRAY In Process Unspecified. EDMS 11:40 Chest Single View XRAY In Process Unspecified. EDMS 13:47 Veronica Reyes MD is Hospitalizing Provider. rt 22:09 No provider procedures requiring assistance completed. Patient admitted, IV remains in jb4 place. Administered Medications: No medications were administered Outcome: 13:48 Decision to Hospitalize by Provider. rt 22:09 Admitted to Med/surg accompanied by nurse, via stretcher, room 221, with chart. jb4 22:09 Condition: stable 22:09 Discharge instructions given to patient, Instructed on the need for admit, Demonstrated understanding of instructions. 22:10 Patient left the ED. jb4 Signatures: Dispatcher [employer] Albert Hopkins em1 Michael Howe, NICOL CAMARENA jb4 Dea Gibbs RN RN kc6 Linda Damon mm9 Mejia Meehan MD MD rt Seema Damon RN RN cm10
--- NOTE | 2022-11-28 13:49 | EDPHYS ---
Physician Documentation [facility] Name: Brigido Burgess Age: 52 yrs Sex: Male : 1970 Arrival Date: 11/28/2022 Time: 10:10 Bed 17 Private MD: ED Physician Mejia Meehan HPI: 11/28 10:18 This 52 yrs old Black Male presents to ER via EMS with complaints of Low Blood Sugar. rt 10:18 Patient with history of diabetes, reportedly only on metformin presents to the ED with rt 2 hypoglycemic episodes today. The first was about at 8 AM, EMS arrived, found the glucose to be at about 47 gave D10, improved blood sugar and patient refused transport to the hospital. Subsequently at about 10:00, the patient had a second episode down to the 40s again, also improving with D10. The patient reportedly had a fall and cannot remember the events surrounding the fall. He states that he was sweaty when his glucose was lower and has felt off. He does report pain to the right hip denies other pain at this time. He is not sure if he hit his head or not. Symptoms are moderate in severity, no other aggravating or alleviating factors.. Historical: - Allergies: 10:15 No Known Allergies; cm10 - PMHx: 10:15 Diabetes - NIDDM; Hypertension; Cerebrovascular accident; cm10 - Immunization history:: Adult Immunizations unknown. - Social history:: Smoking status: Patient denies any tobacco usage or history of. - Family history:: not pertinent. ROS: 10:18 Constitutional: Negative for fever, chills, and weight loss, Cardiovascular: Negative rt for chest pain, palpitations, and edema, Respiratory: Negative for shortness of breath, cough, wheezing, and pleuritic chest pain, Abdomen/GI: Negative for abdominal pain, nausea, vomiting, diarrhea, and constipation, Back: Negative for injury and pain, Psych: Negative for depression, anxiety, suicide ideation, homicidal ideation, and hallucinations. 10:18 MS/extremity: Positive for pain, Negative for deformity. 10:18 Neuro: Positive for dizziness, loss of consciousness, Negative for Exam: 10:18 Constitutional: This is a well developed, well nourished patient who is awake, alert, rt and in no acute distress. Head/Face: Normocephalic, atraumatic. Chest/axilla: Normal chest wall appearance and motion. Nontender with no deformity. No lesions are appreciated. Cardiovascular: Regular rate and rhythm with a normal S1 and S2. No gallops, murmurs, or rubs. Normal PMI, no JVD. No pulse deficits. Respiratory: Lungs have equal breath sounds bilaterally, clear to auscultation and percussion. No rales, rhonchi or wheezes noted. No increased work of breathing, no retractions or nasal flaring. Abdomen/GI: Soft, non-tender, with normal bowel sounds. No distension or tympany. No guarding or rebound. No evidence of tenderness throughout. Skin: Warm, dry with normal turgor. Normal color with no rashes, no lesions, and no evidence of cellulitis. MS/ Extremity: Pulses equal, no cyanosis. Neurovascular intact. Full, normal range of motion. Neuro: Awake and alert, GCS 15, oriented to person, place, time, and situation. Cranial nerves II-XII grossly intact. Motor strength 5/5 in all extremities. Sensory grossly intact. Cerebellar exam normal. Normal gait. Psych: Awake, alert, with orientation to person, place and time. Behavior, mood, and affect are within normal limits. 10:26 ECG was reviewed by the Attending Physician. rt Vital Signs: 10:12 BP 157 / 95; Pulse 96; Resp 18; Pulse Ox 100% on R/A; Weight 90.72 kg; Height 5 ft. 11 cm10 in. ; 11:14 BP 116 / 61; Pulse 83; Resp 18 S; Pulse Ox 94% on R/A; kc6 11:52 Temp 98.6(O); kc6 12:16 BP 125 / 65; Pulse 82; Resp 19 S; Pulse Ox 100% on R/A; kc6 13:11 BP 136 / 72; Pulse 88; Resp 17 S; Pulse Ox 99% on R/A; kc6 13:51 BP 128 / 68; Pulse 85; Resp 17 S; Pulse Ox 100% on R/A; kc6 21:00 BP 130 / 77; Pulse 101; Resp 16; Temp 99.1(O); Pulse Ox 100% on R/A; jb4 10:12 Body Mass Index 27.89 (90.72 kg, 180.34 cm) cm10 MDM: 10:12 Patient medically screened. rt 17:38 Differential diagnosis: Hypoglycemia due to sulfonylurea, sepsis, acute coronary rt syndrome. Data reviewed: vital signs, nurses notes, lab test result(s), EKG, radiologic studies. Consideration of Admission/Observation Patient was admitted/placed on observation. Management of patient was discussed with the following: Hospitalist: Agrees to admit. Care significantly affected by the following chronic conditions: Diabetes. Counseling: I had a detailed discussion with the patient and/or guardian regarding: the historical points, exam findings, and any diagnostic results supporting the discharge/admit diagnosis, lab results, radiology results, the need for further work-up and treatment in the hospital. 11/28 10:12 Order name: glucometer results - FOR PT WITH NO ID kc6 11/28 10:13 Order name: CBC with Diff; Complete Time: 11:24 rt 11/28 10:13 Order name: CMP; Complete Time: 11:42 rt 11/28 10:13 Order name: Magnesium; Complete Time: 11:42 rt 11/28 10:13 Order name: UAM; Complete Time: 11:42 rt 11/28 10:13 Order name: Troponin High Sensitivity; Complete Time: 11:42 rt 11/28 12:38 Order name: Glucose, Ancillary Testing; Complete Time: 13:32 EDMS 11/28 13:59 Order name: CBC with Automated Diff EDMS 11/28 13:59 Order name: CBC with Automated Diff EDMS 11/28 13:59 Order name: Comprehensive Metabolic Panel EDIN 11/28 13:59 Order name: Comprehensive Metabolic Panel EDIN 11/28 13:59 Order name: Hemoglobin A1c EDIN 11/28 13:59 Order name: Hemoglobin A1c EDIN 11/28 13:59 Order name: Protime (+INR) EDMS 11/28 13:59 Order name: Protime (+INR) EDMS 11/28 13:59 Order name: PTT, Activated Partial Thromb EDMS 11/28 13:59 Order name: PTT, Activated Partial Thromb EDMS 11/28 14:07 Order name: Glucose, Ancillary Testing EDMS 11/28 16:37 Order name: Glucose, Ancillary Testing EDMS 11/28 18:37 Order name: Glucose, Ancillary Testing EDMS 11/28 21:59 Order name: Glucose, Ancillary Testing EDMS 11/28 10:13 Order name: Hip Right 2 View XRAY; Complete Time: 12:25 rt 11/28 10:13 Order name: Chest Single View XRAY; Complete Time: 11:54 rt 11/28 10:13 Order name: CT Head Brain wo Cont; Complete Time: 11:24 rt 11/28 10:13 Order name: EKG; Complete Time: 10:14 rt 11/28 13:59 Order name: Regular EDMS 11/28 10:13 Order name: EKG - Nurse/Tech; Complete Time: 10:15 rt 11/28 10:34 Order name: Labs - recollect needed: please recollect cbc and chem; Complete Time: 10:58em1 11/28 12:12 Order name: Accucheck; Complete Time: 12:27 rt EC: Rate is 85 beats/min. Rhythm is regular, Normal Sinus Rhythm with No ectopy. QRS Cable rt is Normal. NE interval is normal. QRS interval is normal. QT interval is normal. No Q waves. Clinical impression: NSR w/ Non-specific ST/T Changes. Administered Medications: No medications were administered Disposition Summary: 11/28/22 13:48 Hospitalization Ordered Hospitalization Status: Observation rt Provider: Veronica Reyes rt Condition: Stable rt Problem: new rt Symptoms: have improved rt Bed/Room Type: Standard rt Location: Telemetry/MedSurg (observation)(11/28/22 20:43) cg Room Assignment: 221(11/28/22 20:43) cg Diagnosis - Drug-induced hypoglycemia without coma rt Forms: - Medication Reconciliation Form rt - SBAR form rt Signatures: Dispatcher [employer] Albert Hopkins em1 Rena Templeton RN RN cg Bucky Syed RN RN jl7 Mejia Meehan MD MD rt Seema Damon RN RN cm10 Corrections: (The following items were deleted from the chart) 14:57 13:48 Telemetry/MedSurg (observation) rt jlDarshan 14:57 13:48 rt jl7 20:43 14:57 [facility] ER HOLD jl7 cg 20:43 14:57 ERHOLD- jl7 cg
[2022-11-28] MEDS ORDERED: ACETAMINOPHEN 500 MG TAB PO PRN (13:55)
[2022-11-28] MEDS ORDERED: MORPHINE 2 MG/ML SYR IV PRN (13:55)
[2022-11-28] MEDS ORDERED: ONDANSETRON 4 MG/2 ML VIAL IV PRN (13:55)
[2022-11-28] MEDS: D5 0.45 NS 1,000 ML IV SCH (14:00)
[2022-11-28] MEDS ORDERED: D5 0.45 NS 1,000 ML IV ONE (14:28)
--- NOTE | 2022-11-28 17:15 | P.HP ---
Certification for Inpatient Patient admitted to: Observation With expected LOS: <2 Midnights Patient will require the following post-hospital care: None Practitioner: I am a practitioner with admitting privileges, knowledge of patient current condition, hospital course, and medical plan of care. Services: Services provided to patient in accordance with Admission requirements found in Title 42 Section 412.3 of the Code of Federal Regulations Patient History Date of Service: 11/28/22 History of Present Illness: Patient is a 52-year-old gentleman who came to the hospital with hypoglycemic episode. Patient blood sugars were in the 40s. At that time EMS arrived and they gave patient dextrose and his blood sugars improved. Patient did not want to come to the emergency room at that time. Around 10:00 patient had another episode when his blood sugars went into the 40s again. EMS was called back out to the house. Patient reportedly had fallen he cannot really remember the events that coincided with him falling. Patient was diaphoretic and he has been feeling lethargic and his mentation has been altered. He did have some pain in his right hip and patient was brought into the hospital for further evaluation. Patient's x-rays in the emergency room did not show any significant abnormalities. Patient lab work-up is unremarkable. We do want to go ahead and admit the patient to the hospital as he has had recurrent episodes of hypoglycemia. Once patient is admitted for observation and his A1c and labs look stable and he is tolerating diet I anticipate him going home in the morning. Allergies No Known Allergies Allergy (Unverified 12/05/11 00:23) Home Medications: Amlodipine Besylate 1 tab PO DAILY 01/30/22 Folic Acid 1 tab PO DAILY 01/30/22 Levothyroxine Sodium [Unithroid] 150 mcg PO DAILY 01/30/22 Losartan Potassium 100 mg PO DAILY 01/30/22 Metformin ER [Glucophage ER*] 1,000 mg PO BID 01/30/22 Metoprolol Tartrate 1 tab PO BID 01/30/22 Sitagliptin Phosphate [Januvia] 50 mg PO DAILY #30 01/31/22 - Past Medical/Surgical History Diabetic: No -: Diabetes type 2 -: Hypertension -: Hypothyroid Past Surgical History: Patient denies surgical history - Family History Father Family History: Reviewed- Non-Contributory - Social History Smoking Status: Former smoker Alcohol use: Yes CD- Drugs: No Caffeine use: Yes Review of Systems 10-point ROS is otherwise unremarkable Physical Examination - Vital Signs Temperature: 98 F Blood Pressure: 140/80 Pulse: 80 Respirations: 18 Pulse Ox (%): 95 - Physical Exam General: Alert, In no apparent distress, Oriented x3 HEENT: Atraumatic, PERRLA, Mucous membr. moist/pink, EOMI, Sclerae nonicteric Neck: Supple, 2+ carotid pulse no bruit, No LAD, Without JVD or thyroid abnormality Respiratory: Clear to auscultation bilaterally, Normal air movement Cardiovascular: Regular rate/rhythm, Normal S1 S2, No murmurs Gastrointestinal: Normal bowel sounds, Soft and benign, Non-distended, No tenderness Musculoskeletal: No clubbing, No swelling, No tenderness Integumentary: No rashes Neurological: Normal gait, Normal speech, Normal strength at 5/5 x4 extr, Normal tone, Sensation intact, Cranial nerves 3-12 intact, Normal affect Lymphatics: No axilla or inguinal lymphadenopathy - Studies Laboratory Data (last 24 hrs) 11/28/22 10:55: Sodium 128 L, Potassium 3.6, BUN 5 L, Creatinine 0.82, Glucose 116 H, Magnesium 1.8, Total Bilirubin 0.7, AST 33, ALT 23, Alkaline Phosphatase 108 11/28/22 10:55: WBC 6.50, Hgb 12.7 L, Hct 37.2 L, Plt Count 206 Assessment & Plan - Problems (Diagnosis) (1) Hypoglycemia Current Visit: No Status: Acute (2) DM2 (diabetes mellitus, type 2) Current Visit: No Status: Acute (3) HTN (hypertension) Current Visit: No Status: Acute (4) Hyponatremia Current Visit: No Status: Acute (5) Hypothyroid Current Visit: No Status: Acute - Plan Plan is to go ahead and admit the patient to the hospital for observation. The patient blood sugars remained stable over the next 24 hours and he should be able to go home. We will make some slight adjustments to his oral hypoglycemic agents. I will check a hemoglobin A1c level. If patient's blood sugars drop below 60 we will need to check an insulin level, proinsulin level, and C-peptide level so we can kind of narrow with the etiology of his hypoglycemia. At this time patient will be admitted for observation. Continue with strict blood pressure control. Monitor hemodynamics closely. May need CT imaging of persistent hypoglycemia to rule out insulinoma. Discharge Plan: Home Plan to discharge in: 24 Hours - Advance Directives Does patient have a Living Will: No Does patient have a Durable POA for Healthcare: No - Code Status/Comfort Care Code Status Assessed: Yes Code Status: Full Code Critical Care: No Time Spent Managing PTS Care (In Minutes): 45
[2022-11-28 22:40] VITALS: BMI 28.4
[2022-11-29] MEDS: D5 0.45 NS 1,000 ML IV SCH (05:31)
[2022-11-29 07:16] LABS: Absolute Lymphocytes (CBC) 1.4 K/uL (0.7-4.9); Hematocrit 33.3 % (39.6-49.0); Lymphocytes % 25.3 % (15.3-44.8); MCV 89.1 fL (80-100); MPV 7.4 fL (7.6-11.3); RBC Red Blood Cell Count 3.74 M/uL (4.33-5.43)
[2022-11-29 07:29] LABS: Protime INR 1.31
[2022-11-29 07:33] LABS: Albumin 3.1 g/dL (3.4-5.0); Bilirubin Total 1.1 mg/dL (0.2-1.0); Potassium 3.3 mEq/L (3.5-5.1); Protein, Total 7.9 g/dL (6.4-8.2)
[2022-11-29] MEDS ORDERED: POTASSIUM CL SA 10 MEQ TAB PO ONE ×2 (10:12→16:43)
[2022-11-29] MEDS ORDERED: GLUCAGON 1 MG/VIAL IM PRN ×2 (12:50→16:58)
[2022-11-29] MEDS ORDERED: D50W 25 GM/50 ML SYRINGE IV PRN ×2 (12:50→16:58)
[2022-11-29] MEDS ORDERED: INSULIN 70/30 100 UNITS/ML SQ ONE ×2 (14:00→16:59)
[2022-11-29] MEDS ORDERED: GLIMEPIRIDE 2 MG TABLET PO ONE (16:57)
[2022-11-29] MEDS: METOPROLOL TAR 50 MG TAB PO SCH (17:20)
[2022-11-29] MEDS: HOME MED 1 EA UNK (Sitagliptin Phos/Metformin Hcl [Janumet 50-1,000 Mg Tablet] Tablet) PO SCH (21:00)
--- NOTE | 2022-11-30 05:23 | P.PN ---
Subjective Date of Service: 11/29/22 Patient still symptomatic from hypoglycemia. He feels really weak and he still is dragging. However, his blood sugars have improved. I go ahead and stop his IV fluids with D5 in there and see what his blood sugars do at this point. I believe his hypoglycemia is related to his Amaryl dosage and will get this changed. Review of Systems 10-point ROS is otherwise unremarkable Physical Examination - Vital Signs Temperature: 99.0 F Blood Pressure: 141/78 Pulse: 80 Respirations: 15 Pulse Ox (%): 100 - Physical Exam General: Alert, In no apparent distress HEENT: Atraumatic, PERRLA, EOMI Neck: Supple, JVD not distended Respiratory: Clear to auscultation bilaterally, Normal air movement Cardiovascular: Regular rate/rhythm, Normal S1 S2 Gastrointestinal: Normal bowel sounds, No tenderness Musculoskeletal: No tenderness Integumentary: No rashes Neurological: Normal speech, Normal tone, Normal affect Lymphatics: No axilla or inguinal lymphadenopathy - Studies Laboratory Data (last 24 hrs) 11/29/22 16:07: Potassium 3.6 11/29/22 06:45: Sodium 130 L, Potassium 3.3 L, BUN 4 L, Creatinine 0.60 L, Glucose 187 H, Total Bilirubin 1.1 H, AST 16, ALT 17, Alkaline Phosphatase 91 11/29/22 06:45: PT 14.4 H, INR 1.31, APTT 36.0 11/29/22 06:45: WBC 5.40, Hgb 11.4 L D, Hct 33.3 L, Plt Count 172 Medications List Reviewed: Yes Assessment & Plan - Problems (Diagnosis) (1) Hypoglycemia Current Visit: No Status: Acute (2) DM2 (diabetes mellitus, type 2) Current Visit: No Status: Acute (3) HTN (hypertension) Current Visit: No Status: Acute (4) Hyponatremia Current Visit: No Status: Acute (5) Hypothyroid Current Visit: No Status: Acute - Plan Plan: 1. DC Amaryl 2. Continue with blood sugar checks and DC dextrose and IV fluids 3. Mild sliding scale insulin 4. Diabetic diet 5. A1c is slightly elevated so he will need to continue with hypoglycemic agents 6. GI and DVT prophylaxis Discharge Plan: Home Plan to discharge in: Greater than 2 days - Advance Directives Does patient have a Living Will: No Does patient have a Durable POA for Healthcare: No - Code Status/Comfort Care Code Status: Full Code Critical Care: No Time Spent Managing PTS Care (In Minutes): 35
[2022-11-30] MEDS ORDERED: LEVOTHYROXINE SOD 0.075 MG TAB PO SCH (06:30)
[2022-11-30 08:07] LABS: Potassium 3.6 mEq/L (3.5-5.1)
[2022-11-30] MEDS: HOME MED 1 EA UNK (Sitagliptin Phos/Metformin Hcl [Janumet 50-1,000 Mg Tablet] Tablet) PO SCH (08:23)
[2022-11-30] MEDS: METOPROLOL TAR 50 MG TAB PO SCH (08:23)
[2022-11-30 08:24] VITALS: BP 158/90
[2022-11-30 09:00] VITALS: TEMP 98.3
[2022-11-30] MEDS ORDERED: LEVOTHYROXINE SODIUM 150 MCG PO SCH (09:00)
[2022-11-30] MEDS ORDERED: AMLODIPINE 10 MG TAB PO SCH (09:00)
[2022-11-30] MEDS ORDERED: LOSARTAN POTASSIUM 50 MG TABLET PO SCH (09:00)
[2022-11-30] MEDS ORDERED: FOLIC ACID 1 MG TABLET PO SCH (09:00)
[2022-11-30] MEDS ORDERED: HOME MED 1 EA UNK (Losartan Potassium [Losartan Potassium] 100 MG Tablet) PO SCH (09:00)
[2022-11-30 09:16] VITALS: O2SAT 100
[2022-11-30] MEDS ORDERED: INSULIN 70/30 100 UNITS/ML SQ ONE ×2 (12:50→16:59)
== END 2022-11-30 10:51 | disposition home or self-care (01) | DRG 638 ==
LOC: ER 10:10 → ERHOLD 13:55 → 2ND 20:59 → OBSVTOIN 11-29 19:55
PROVIDERS: ADMIT Hospitalist; ATTEND Hospitalist
DX: E11.649 Type 2 diabetes mellitus with hypoglycemia without coma (principal); E87.1 Hypo-osmolality and hyponatremia; I10 Essential (primary) hypertension; E03.9 Hypothyroidism, unspecified; Z79.4 Long term (current) use of insulin; Z79.890 Hormone replacement therapy; Z79.899 Other long term (current) drug therapy; Z87.891 Personal history of nicotine dependence
CPT/HCPCS: 36415; 70450; 71045; 80048; 80053; 81001; 82947; 83036; 83735; 84132; 84484; 85025; 85610; 85730; 99285; G0378; J1815; J7799

== ENCOUNTER 2023-09-03 23:17 | Emergency (ER) | payer SELFPAY ==
[2023-09-04] MEDS ORDERED: THIAMINE 200 MG/2 ML INJ ONE (00:10)
[2023-09-04] MEDS ORDERED: NA CHLORIDE 0.9% 1,000 ML ONE ×2 (00:11→02:16)
[2023-09-04 00:16] LABS: RBC Red Blood Cell Count 4.01 M/uL (4.33-5.43)
[2023-09-04 00:17] LABS: Absolute Eosinophils 0.1 K/uL (0-0.5); Absolute Lymphocytes (CBC) 1.5 K/uL (0.7-4.9); Absolute Monocytes 0.3 K/uL (0.1-1.3); Absolute Neutrophil 2.1 K/uL (1.8-8.0); Eosinophils % 1.9 % (0-4.4); Hematocrit 37.5 % (39.6-49.0); Hemoglobin 12.7 g/dL (13.6-17.9); Lymphocytes % 38.3 % (15.3-44.8); MCH 31.6 pg (27.0-35.0); MCHC 33.8 g/dL (32.0-36.0); MCV 93.5 fL (80-100); MPV 7.4 fL (7.6-11.3); Monocytes % 6.6 % (3.3-12.3); Neutrophils % 52.2 % (41.7-73.7); Platelets 177 thou/uL (152-406)
[2023-09-04 00:24] LABS: PT Prothrombin Time 14.8 SECONDS (9.5-12.5); Protime INR 1.36
[2023-09-04 00:39] LABS: ALT/SGPT 27 U/L (16-61); AST/SGOT 63 U/L (15-37); Albumin 3.1 g/dL (3.4-5.0); Albumin/Globulin Ratio 0.5 (1.1-1.8); Alkaline Phosphatase 136 U/L (45-117); Anion Gap 13.2 mEq/L (5.0-15.0); Bicarbonate 26 mEq/L (21-32); Bilirubin Direct 0.4 mg/dL (0-0.2); Bilirubin Indirect, Calculated 0.3 mg/dL (0.2-0.8); Bilirubin Total 0.7 mg/dL (0.2-1.0); Globulin 5.9 g/dL (2.3-3.5); Glomerular Filtration Rate 103 ml/min (=/>90); Glucose Level 197 mg/dL (74-106); Magnesium 1.6 mg/dL (1.6-2.4); NT PRO-BNP 10 pg/mL (<125); Potassium 3.2 mEq/L (3.5-5.1); Sodium Level 136 mEq/L (136-145); Troponin High Sensitivity 12.4 pg/mL (<58.9)
[2023-09-04 00:44] LABS: BUN Blood Urea Nitrogen < 3 mg/dL (7-18)
--- NOTE | 2023-09-04 02:52 | ER ---
Nurse's Notes [facility] Name: Brigido Burgess Age: 52 yrs Sex: Male : 1970 Arrival Date: 09/03/2023 Time: 23:17 Bed 11 Private MD: Diagnosis: Chest pain, unspecified;Alcohol abuse with intoxication Presentation: 09/02 23:23 Chief complaint: Patient states: Pt's called after the patient woke up with severe kd3 chest pain to the left chest wall with SOB. Pt is + ETOH, EKG done at the EMS stretcher. Pt was administered 1 tablet of Nitro in route with minimal relief. Pt BP in the 200's in route to the hospital. Pt roomed for further evaluation. Coronavirus screen: Vaccine status: unknown. Ebola Screen: No symptoms or risks identified at this time. Initial Sepsis Screen: Does the patient meet any 2 criteria? No. Patient's initial sepsis screen is negative. Does the patient have a suspected source of infection? No. Patient's initial sepsis screen is negative. Risk Assessment: Do you want to hurt yourself or someone else? Patient reports no desire to harm self or others. Onset of symptoms was September 03, 2023. 23:23 Method Of Arrival: EMS: [facility] kd3 23:23 Acuity: SIDRA 3 kd3 Triage Assessment: 23:27 General: Appears uncomfortable, Behavior is calm, cooperative. Pain: Complains of pain kd3 in anterior aspect of left upper chest. Cardiovascular: Patient's skin is warm and dry. Respiratory: Airway is patent Trachea midline Respiratory effort is even, unlabored, Respiratory pattern is regular, symmetrical. Historical: - PMHx: 23:27 Cerebrovascular accident; Diabetes - NIDDM; Hypertension; kd3 - Immunization history:: Adult Immunizations up to date. - Social history:: Smoking status: unknown. Screenin/29 00:06 [facility] ED Fall Risk Assessment (Adult) History of falling in the last 3 months, kd3 including since admission No falls in past 3 months (0 pts) Confusion or Disorientation No (0 pts) Intoxicated or Sedated Yes (3 pts) Impaired Gait No (0 pts) Mobility Assist Device Used No (0 pt) Altered Elimination No (0 pt) Score/Fall Risk Level 3 or more points = High Risk Oriented to surroundings, Maintained a safe environment, Educated pt \T\ family on fall prevention, incl call for assistance when getting out of bed, Assessed \T\ reinforced patient's understanding of fall precautions, Provided non-skid footwear, Hourly rounding (assess needs \T\ fall precautionary measures) done. Abuse screen: Denies threats or abuse. Denies injuries from another. Nutritional screening: No deficits noted. Tuberculosis screening: No symptoms or risk factors identified. Assessment: 00:05 General: Appears in no apparent distress. Behavior is calm, cooperative. General: kd3 Appears Smells of alcohol. Pain: Pain does not radiate. Pain began suddenly. Neuro: Level of Consciousness is awake, alert, obeys commands, Oriented to person, place, time, situation. Cardiovascular: Patient's skin is warm and dry. Respiratory: Airway is patent Trachea midline Respiratory effort is even, unlabored, Respiratory pattern is regular, symmetrical. 00:21 General: Pt repeat EKG performed by this RN at bedside, fluids running, pt remains on kd3 continuous monitoring. . 01:20 Reassessment: Patient and/or family updated on plan of care and expected duration. Pain ha1 level reassessed. Patient is alert, oriented x 3, equal unlabored respirations, skin warm/dry/pink. 02:20 Reassessment: Patient and/or family updated on plan of care and expected duration. Pain ha1 level reassessed. Patient is alert, oriented x 3, equal unlabored respirations, skin warm/dry/pink. Vital Signs: 09/02 23:51 BP 174 / 100; Pulse 107; Resp 20; Temp 98.4(O); Pulse Ox 97% on R/A; Weight 90.72 kg; kd3 Height 5 ft. 11 in. ; Pain 03/17; 09/03 00:21 BP 160 / 98; Pulse 108; Resp 18; Pulse Ox 99% on R/A; kd3 01:04 Pulse 95; Resp 17; Pulse Ox 97% on R/A; kd3 01:10 BP 110 / 72; kd3 02:00 BP 118 / 73; Pulse 102; Resp 18 S; Pulse Ox 97% on R/A; ha1 03:00 BP 135 / 78; Pulse 98; Resp 17 S; Temp 98.2; Pulse Ox 99% on R/A; ha1 09/02 23:51 Body Mass Index 27.89 (90.72 kg, 180.34 cm) kd3 09/02 23:51 Pain Scale: Adult kd3 ED Course: 09/02 23:19 Patient arrived in ED. jj6 23:19 Maria L Alanis PA-C is PHCP. sb4 23:19 Artur Osborne MD is Attending Physician. sb4 23:23 Digna Cleveland, NICOL is Primary Nurse. kd3 23:27 Triage completed. kd3 23:28 Arm band placed on. EKG completed in triage. Results shown to MD. kd3 23:36 XRAY Chest (1 view) In Process Unspecified. EDMS 09/03 00:05 EKG done, by ED staff. pf1 00:06 No provider procedures requiring assistance completed. Maintain EMS IV. Dressing kd3 intact. Good blood return noted. Site clean \T\ dry. Gauge \T\ site: 20 gauge left A/C. Patient maintains SpO2 saturation greater than 95% on room air. 00:06 Initial lab(s) drawn, by ED staff, sent to lab. pf1 00:07 Patient has correct armband on for positive identification. Client placed on continuous kd3 cardiac and pulse oximetry monitoring. NIBP monitoring applied. 00:07 Basic Metabolic Panel Sent. kd3 00:07 CBC with Diff Sent. kd3 00:07 LFT's Sent. kd3 00:07 Magnesium Sent. kd3 00:07 NT PRO-BNP Sent. kd3 00:07 PT-INR Sent. kd3 00:07 Troponin HS Sent. kd3 02:33 Troponin High Sensitivity Sent. pf1 02:52 David Kim MD is Referral Physician. sb4 03:00 Provided Education on: follow up with cardiology. ha1 03:20 IV discontinued, intact, bleeding controlled, No redness/swelling at site. Pressure pf1 dressing applied. Administered Medications: 00:21 Drug: NS 0.9% IV 1000 ml IV at 1 bolus Per protocol; 1000 mL bolus Route: IV; Rate: 1 kd3 bolus; Site: left antecubital; 03:20 Follow up: Response: No adverse reaction; Marked relief of symptoms; IV Status: ha1 Completed infusion; IV Intake: 1000ml 00:21 Drug: Thiamine IV 100 mg IV at calculated rate once Route: IV; Rate: calculated rate; kd3 Site: left antecubital; 03:20 Follow up: Response: No adverse reaction; IV Status: Completed infusion ha1 02:30 Drug: NS 0.9% IV 1000 ml IV at 1 bolus Per protocol; 1000 mL bolus Route: IV; Rate: 1 pf1 bolus; Site: left antecubital; 03:20 Follow up: Response: No adverse reaction; Marked relief of symptoms; IV Status: ha1 Completed infusion; IV Intake: 1000ml Medication: 00:07 VIS not applicable for this client. kd3 Intake: 03:20 IV: 1000ml; Total: 1000ml. ha1 03:20 IV: 1000ml; Total: 2000ml. ha1 Outcome: 02:52 Discharge ordered by . sb4 03:20 Discharged to home via wheelchair, with family, pf1 03:20 Condition: improved pf1 03:20 Discharge instructions given to patient, family, Instructed on discharge instructions, follow up and referral plans. Demonstrated understanding of instructions, follow-up care, 03:31 Patient left the ED. pf1 Signatures: Dispatcher [employer] EDMS Lilo Batista6 Digna Cleveland RN RN kd3 Meagan Fernandez RN RN ha1 Maria L Alanis PA-C PAGreta wells4 Kacy Birch RN RN pf1
--- NOTE | 2023-09-04 02:53 | EDPHYS ---
Physician Documentation [facility] Name: Brigido Burgess Age: 52 yrs Sex: Male : 1970 Arrival Date: 09/03/2023 Time: 23:17 Bed 11 Private MD: ED Physician Artur Osborne HPI: 09/02 23:30 This 52 yrs old Black Male presents to ER via EMS with complaints of Chest Pain. sb4 23:42 Patient presents with complaints of chest pain that woke him up out of his sleep. He sb4 reports the pain is substernal left chest that does not radiate. He is intoxicated and cannot provide much history. EMS noted him to be hypertensive and administered nitro and aspirin which did not improve his pain but did improve his blood pressure. Historical: - PMHx: 23:27 Cerebrovascular accident; Diabetes - NIDDM; Hypertension; kd3 - Immunization history:: Adult Immunizations up to date. - Social history:: Smoking status: unknown. ROS: 23:42 Constitutional: Negative for fever, chills, and weight loss, sb4 23:42 Cardiovascular: Positive for chest pain, 23:42 All other systems are negative, Exam: 23:42 Head/Face: Normocephalic, atraumatic. Eyes: Extra-ocular motions intact. Periorbital sb4 areas with no swelling, redness, or edema. ENT: Mucous membranes moist. Cardiovascular: Regular rate and rhythm with a normal S1 and S2. Respiratory: Lungs have equal breath sounds bilaterally, clear to auscultation and percussion. No rales, rhonchi or wheezes noted. No increased work of breathing, no retractions or nasal flaring. Abdomen/GI: Soft, non-tender, no distension. Skin: Warm, dry with normal turgor. Normal color with no rashes, no lesions, and no evidence of cellulitis. MS/ Extremity: Pulses equal, no cyanosis. Neurovascular intact. Full, normal range of motion. Neuro: Awake and alert, GCS 15, oriented to person, place, time, and situation. Motor strength 5/5 in all extremities. Sensory grossly intact. 23:42 Constitutional: The patient appears in no acute distress, awake, smells of alcohol, ETOH, Intoxicated Vital Signs: 23:51 BP 174 / 100; Pulse 107; Resp 20; Temp 98.4(O); Pulse Ox 97% on R/A; Weight 90.72 kg; kd3 Height 5 ft. 11 in. ; Pain 10; 09/03 00:21 BP 160 / 98; Pulse 108; Resp 18; Pulse Ox 99% on R/A; kd3 01:04 Pulse 95; Resp 17; Pulse Ox 97% on R/A; kd3 01:10 BP 110 / 72; kd3 02:00 BP 118 / 73; Pulse 102; Resp 18 S; Pulse Ox 97% on R/A; ha1 03:00 BP 135 / 78; Pulse 98; Resp 17 S; Temp 98.2; Pulse Ox 99% on R/A; ha1 09/02 23:51 Body Mass Index 27.89 (90.72 kg, 180.34 cm) kd3 09/02 23:51 Pain Scale: Adult kd3 MDM: 09/02 23:19 Patient medically screened. sb4 09/03 02:51 Data reviewed: vital signs, nurses notes, EMS record, lab test result(s), EKG, sb4 radiologic studies, and as a result, I will discharge patient. Consideration of Admission/Observation Escalation of care including admission/observation considered. Historians other than the Patient: Spouse/Significant Other: . Care significantly affected by the following chronic conditions: Diabetes, Hypertension. Scoring Tools HEART Score: History: ECG: Age: Risk Factors: 1 or 2 risk factors (1), Troponin: Total Score = 3. 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 Special discussion: Based on the patient's history, exam, and Dx evaluation, there is no indication for emergent intervention or inpatient Tx. It is understood by the patient/guardian that if the Sx's persist or worsen they need to return immediately for re-evaluation. 09/02 23:24 Order name: Basic Metabolic Panel; Complete Time: 00:53 sb4 09/02 23:24 Order name: CBC with Diff; Complete Time: 00:22 sb4 09/02 23:24 Order name: LFT's; Complete Time: 00:53 sb4 09/02 23:24 Order name: Magnesium; Complete Time: 00:53 sb4 09/02 23:24 Order name: NT PRO-BNP; Complete Time: 00:53 sb4 09/02 23:24 Order name: PT-INR; Complete Time: 00:26 sb4 09/02 23:24 Order name: Troponin HS; Complete Time: 00:53 sb4 09/02 23:24 Order name: ETOH Level; Complete Time: 00:53 sb4 09/03 00:10 Order name: Glucose, Ancillary Testing; Complete Time: 00:10 EDMS 09/03 00:13 Order name: Glucose, Ancillary Testing EDMS 09/03 02:01 Order name: Troponin High Sensitivity; Complete Time: 03:09 sb4 09/02 23:24 Order name: XRAY Chest (1 view) sb4 09/02 23:24 Order name: EKG; Complete Time: 23:25 sb4 09/02 23:24 Order name: EKG - Nurse/Tech; Complete Time: 23:28 sb4 09/02 23:24 Order name: IV Saline Lock; Complete Time: 23:59 sb4 09/02 23:24 Order name: Labs collected and sent; Complete Time: 23:59 sb4 09/02 23:24 Order name: O2 Per Protocol; Complete Time: 23:59 sb4 09/02 23:24 Order name: O2 Sat Monitoring; Complete Time: 23:59 sb4 09/02 23:24 Order name: Accucheck; Complete Time: 23:58 sb4 EC:27 Rate is 103 beats/min. Rhythm is regular, Sinus tachycardia. MN interval is normal at sb4 174 msec. QRS interval is normal at 84 msec. QT interval is normal at 360 msec. No Q waves. T waves are Normal. No ST changes noted. Clinical impression: Sinus tachycardia and No evidence of ischemia. Interpreted by me. Reviewed by me. Administered Medications: 00:21 Drug: NS 0.9% IV 1000 ml IV at 1 bolus Per protocol; 1000 mL bolus Route: IV; Rate: 1 kd3 bolus; Site: left antecubital; 03:20 Follow up: Response: No adverse reaction; Marked relief of symptoms; IV Status: ha1 Completed infusion; IV Intake: 1000ml 00:21 Drug: Thiamine IV 100 mg IV at calculated rate once Route: IV; Rate: calculated rate; kd3 Site: left antecubital; 03:20 Follow up: Response: No adverse reaction; IV Status: Completed infusion ha1 02:30 Drug: NS 0.9% IV 1000 ml IV at 1 bolus Per protocol; 1000 mL bolus Route: IV; Rate: 1 pf1 bolus; Site: left antecubital; 03:20 Follow up: Response: No adverse reaction; Marked relief of symptoms; IV Status: ha1 Completed infusion; IV Intake: 1000ml Disposition: 07:14 Co-signature as Attending Physician, Artur Osborne MD I agree with the assessment sp4 and plan of care. I reviewed the patient's care provided by the Advanced Practice Provider and agree with the diagnosis and treatment plan. Disposition Summary: 09/04/23 02:52 Discharge Ordered Notes: Location: Home sb4 Problem: new sb4 Symptoms: have improved sb4 Condition: Stable sb4 Diagnosis - Chest pain, unspecified sb4 - Alcohol abuse with intoxication sb4 Followup: sb4 - With: David Kim MD - When: 2 - 3 days - Reason: Further diagnostic work-up, Recheck today's complaints, Re-evaluation by your physician Discharge Instructions: - Discharge Summary Sheet sb4 - Nonspecific Chest Pain, Adult, [id number] sb4 - Alcohol Abuse and Nutrition sb4 Forms: - Thank You Letter sb4 - Patient Portal Instructions sb4 - Leadership Thank You Letter sb4 Signatures: Dispatcher [employer] Digna Bush RN RN kd3 Maria L Alanis PA-C PAGreta sb4 Kacy Birch RN RN pf1 Artur Osborne MD MD sp4 Meagan Fernandez RN ha1
[2023-09-04 03:55] VITALS: BP 110/72; TEMP 98.4; O2SAT 97
--- NOTE | 2023-09-04 11:50 | EKG ---
Test Date: 2023-09-03 Test Time: 23:07:18 Director Of Pupil Personnel Program: ANICETO MEASUREMENT RESULTS: Intervals: Rate: 134 GA: 128 QRSD: 70 QT: 318 QTc: 474 [place]: P: GA: 128 QRS: 34 T: 65 INTERPRETIVE STATEMENTS: Sinus tachycardia Nonspecific ST and T wave abnormality Abnormal ECG Compared to ECG 01/30/2022 14:19:13 ST (T wave) deviation now present Sinus rhythm no longer present Electronically Signed On 09-04-23 11:48:39 CDT by David Kim
--- NOTE | 2023-09-04 11:50 | EKG ---
Test Date: 2023-09-04 Test Time: 00:05:08 Aquatics Coordinator: ANICETO MEASUREMENT RESULTS: Intervals: Rate: 103 IL: 174 QRSD: 84 QT: 360 QTc: 471 [place]: P: 67 IL: 174 QRS: 25 T: 44 INTERPRETIVE STATEMENTS: Sinus tachycardia Otherwise normal ECG Compared to ECG 09/03/2023 23:07:18 ST (T wave) deviation no longer present Electronically Signed On 09-04-23 11:48:33 CDT by aDvid Kim
--- NOTE | 2023-09-04 16:51 | RAD REPORT ---
EXAM DESCRIPTION: Chest Single View 09/03/2023 11:42 PM CDT CLINICAL HISTORY: 52 years, Male, CHEST PAIN COMPARISON: None FINDINGS: 1 views of the chest was obtained. No prior films are available at this time for compari son. There is normal lung volume. Mediastinum: The cardiomediastinal silhouette appears normal in size and shape. Lungs: No areas of consolidations or masses are identified. Heart: The heart is normal in size. Thoracic aorta: The thoracic aorta demonstrate to be normal. Pulmonary vasculature: The pulmonary vasculature is normal in distribution. Pleura: The costophrenic angles demonstrate to be sharp. Osseous structures: The bony structures demonstrate to be within normal limits. Other: None. IMPRESSION: No acute cardiopulmonary disease is seen Electronically signed by: Dewayne Sagastume MD 09/03/2023 11:42 PM CDT Due to temporary technical issues with the PACS/Fluency reporting system, reports are being signed by the in house radiologists without review as a courtesy to insure prompt reporting. The interpreting radiologist is fully responsible for the content of the report.
== END 2023-09-04 03:31 | disposition home or self-care (01) ==
LOC: ER 23:17
DX: R07.9 Chest pain, unspecified (principal); F10.129 Alcohol abuse with intoxication, unspecified
CPT/HCPCS: 36415; 71045; 80048; 80076; 82077; 82947; 83735; 83880; 84484; 85025; 85610; 93005; 96365; 96366; 99285; J3411; J7030

== ENCOUNTER 2023-11-07 18:09 | Emergency (ER) | payer OTHER ==
--- NOTE | 2023-11-07 18:43 | RAD REPORT ---
EXAM DESCRIPTION: CT - Ct Stroke Brain Wo Cont - 11/07/2023 6:36 pm CLINICAL HISTORY: STROKE ALERT COMPARISON: None TECHNIQUE: All CT scans are performed using dose optimization technique as appropriate and may inclu de automated exposure control or mA/KV adjustment according to patient size. FINDINGS: No intracranial hemorrhage, hydrocephalus or extra-axial fluid collection.No areas of brai n edema or evidence of midline shift. The paranasal sinuses and mastoids are clear. The calvarium is intact. IMPRESSION: No acute intracranial abnormality. Conveyed to Dr. Randhawa by Dr. Alvardao at 1839 on 11/07/23
--- NOTE | 2023-11-07 18:57 | RAD REPORT ---
EXAM DESCRIPTION: CT - Neck Angio - 11/07/2023 6:50 pm CLINICAL HISTORY: NUMBNESS COMPARISON: No comparisons TECHNIQUE: CT angiography of the neck vessels was performed with maximum intensity reformatted image s. CAROTID STENOSIS REFERENCE USING NASCET CRITERIA: Mild - <50% stenosis. Moderate - 50-69% stenosis. Severe - 70-94% stenosis. Near occlusion - 95-99% stenosis. Occluded - 100% stenosis. All CT scans are performed using dose optimization technique as appropriate and may include automated exposure control or mA/KV adjustment according to patient size. FINDINGS: A left aortic arch is identified with normal three vessel configuration of the great vesse ls. No significant flow abnormality is seen of the common carotid bilaterally. No significant stenosis is identified involving the cervical segments of both internal carotid arteri es. Normal flow is seen within both vertebral arteries. Nonspecific prominent level 1 cervical chain lymph nodes. IMPRESSION: No significant flow abnormality of the neck vessels is identified.
--- NOTE | 2023-11-07 18:59 | RAD REPORT ---
EXAM DESCRIPTION: CT - Head angio - 11/07/2023 6:50 pm CLINICAL HISTORY: STROKE ALERT COMPARISON: Ct Stroke Brain Wo Cont dated 11/07/2023 TECHNIQUE: CT angiography of the head was performed with maximum intensity reformatted images. 3D ma ximum intensity pixel (MIP) reconstructions were created All CT scans are performed using dose optimization technique as appropriate and may include automated exposure control or mA/KV adjustment according to patient size. FINDINGS: Anterior circulation: Absent left A1 segment. No aneurysm or large vessel occlusion. No hemodynamically significant stenosi s. No arteriovenous malformation identified. 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 No aneurysm or large vessel occlusion. No hemodynamically significant stenosis. No arteriovenous malformation identified. IMPRESSION: No significant flow abnormality is detected.
--- NOTE | 2023-11-07 18:59 | RAD REPORT ---
EXAM DESCRIPTION: RAD - Chest Single View - 11/07/2023 6:54 pm CLINICAL HISTORY: COUGH COMPARISON: <Comparisons> FINDINGS: Lines: None. Lungs: No evidence of edema or pneumonia. Pleural: No significant pleural effusions or pneumothorax. Cardiac: The heart size is within normal limits. Mediastinum: Within normal limits. Bones: No acute fractures. Other: None IMPRESSION: No acute cardiopulmonary disease.
[2023-11-07] MEDS ORDERED: MULTIVITAMINS 10 ML VIAL (INJ) IV ONE (19:36)
[2023-11-07] MEDS ORDERED: FOLIC ACID 5 MG/ML VIAL ONE ×2 (19:36→19:42)
[2023-11-07] MEDS ORDERED: THIAMINE 200 MG/2 ML INJ ONE (19:36)
[2023-11-07] MEDS ORDERED: NA CHLORIDE 0.9% 1,000 ML ONE ×2 (19:37→19:42)
[2023-11-07 19:47] LABS: Absolute Basophils 0.1 K/uL (0-0.5); Absolute Eosinophils 0.2 K/uL (0-0.5); Absolute Lymphocytes (CBC) 2.4 K/uL (0.7-4.9); Absolute Monocytes 0.3 K/uL (0.1-1.3); Absolute Neutrophil 3.8 K/uL (1.8-8.0); Basophils % 1.8 % (0-1.3); Eosinophils % 2.7 % (0-4.4); Hematocrit 44.4 % (39.6-49.0); Hemoglobin 14.8 g/dL (13.6-17.9); Lymphocytes % 34.6 % (15.3-44.8); MCH 31.4 pg (27.0-35.0); MCHC 33.3 g/dL (32.0-36.0); MCV 94.4 fL (80-100); Monocytes % 4.7 % (3.3-12.3); Neutrophils % 56.2 % (41.7-73.7); Nucleated Red Blood Cells % 0.3 % (0-0); Platelets 326 thou/uL (152-406); RBC Red Blood Cell Count 4.71 M/uL (4.33-5.43)
[2023-11-07 19:49] LABS: PT Prothrombin Time 14.4 SECONDS (9.5-12.5); Protime INR 1.32
[2023-11-07 20:03] LABS: ALT/SGPT 44 U/L (16-61); Albumin/Globulin Ratio 0.4 (1.1-1.8); Alkaline Phosphatase 215 U/L (45-117); Anion Gap 8.8 mEq/L (5.0-15.0); BUN Blood Urea Nitrogen 3 mg/dL (7-18); Bicarbonate 28 mEq/L (21-32); Bilirubin Direct 0.3 mg/dL (0-0.2); Bilirubin Indirect, Calculated 0.3 mg/dL (0.2-0.8); Bilirubin Total 0.6 mg/dL (0.2-1.0); Globulin 6.8 g/dL (2.3-3.5); Glomerular Filtration Rate 106 ml/min (=/>90); Glucose Level 115 mg/dL (74-106); NT PRO-BNP 22 pg/mL (<125); Protein, Total 9.8 g/dL (6.4-8.2); Sodium Level 134 mEq/L (136-145)
[2023-11-07 20:12] LABS: AST/SGOT 84 U/L (15-37); C-Reactive Protein < 2.90 mg/L (<3.00); Magnesium 1.8 mg/dL (1.6-2.4); Potassium 3.8 mEq/L (3.5-5.1)
[2023-11-07 22:06] LABS: Sqamous Epithelial <5 /HPF (None Seen); Urine Bacteria None Seen /HPF (<20); Urine Bilirubin NEGATIVE (Negative); Urine Blood Negative (Negative); Urine Clarity Clear (Clear); Urine Color Colorless (Yellow); Urine Culture Reflex Order NOT NEEDED; Urine Glucose NEGATIVE (Negative); Urine Ketones NEGATIVE (Negative); Urine Microscopic Reflex YN ORDER UMIC; Urine Mucus Slight /HPF (None Seen); Urine Nitrite NEGATIVE (Negative); Urine Protein NEGATIVE (Negative); Urine RBC <5 /HPF (None Seen); Urine Urobilinogen Normal (Normal); Urine WBC None Seen /HPF (<5)
[2023-11-07 22:10] LABS: Barbiturates NEGATIVE (NEGATIVE); Benzodiazepines NEGATIVE (NEGATIVE); Cocaine NEGATIVE (NEGATIVE); METHAMPHETAM NEGATIVE (NEGATIVE); Methadone NEGATIVE (NEGATIVE); Opiates NEGATIVE (NEGATIVE); Phencyclidine NEGATIVE (NEGATIVE); THC Cannibis NEGATIVE (NEGATIVE)
--- NOTE | 2023-11-07 22:43 | EDPHYS ---
Physician Documentation [facility] Name: Brigido Toney Age: 53 yrs Sex: Male : 1970 Arrival Date: 11/07/2023 Time: 18:09 Bed 2 Private MD: ED Physician Artur Osborne HPI: 11/06 19:01 This 53 yrs old Black Male presents to ER via EMS with complaints of Weakness. sp4 19:18 53-year-old male presents with acute intoxication also generalized weakness reported sp4 left-sided numbness also left-sided chest pain started 2 days ago.. Patient reports on he was at [facility] and was assessed for stroke and was reported that there was no sign of stroke.. Historical: - Allergies: 18:16 No Known Allergies; bp - PMHx: 18:16 Diabetes mellitus; Hypertensive disorder; Cerebrovascular accident; bp - Immunization history:: Adult Immunizations up to date. - Infectious Disease History:: Denies. - Social history:: Smoking status: unknown. - Family history:: not pertinent. ROS: 19:18 Constitutional: Negative for fever, chills, and weight loss, positive for chest pain sp4 positive for left-sided numbness and positive for generalized weakness, positive for alcohol intoxication 19:18 All other systems are negative, Exam: 19:17 Constitutional: This is a well developed, well nourished patient who is awake, alert, sp4 and in no acute distress. Appears moderately intoxicated , poorly cooperative. Head/Face: Normocephalic, atraumatic. Eyes: Pupils equal round and reactive to light, extra-ocular motions intact. Lids and lashes normal. Conjunctiva and sclera are not injected. Cornea within normal limits. Periorbital areas with no swelling, redness, or edema. ENT: Nares patent. No nasal discharge, no septal abnormalities noted. Tympanic membranes are normal and external auditory canals are clear. Oropharynx with no redness, swelling, or masses, exudates, or evidence of obstruction, uvula midline. Mucous membranes moist. Neck: Trachea midline, no thyromegaly or masses palpated, and no cervical lymphadenopathy. Supple, full range of motion without nuchal rigidity, or vertebral point tenderness. Chest/axilla: Normal chest wall appearance and motion. Nontender with no deformity. No lesions are appreciated. Cardiovascular: Regular rate and rhythm with a normal S1 and S2. No gallops, murmurs, or rubs. Normal PMI, no JVD. No pulse deficits. Respiratory: Lungs have equal breath sounds bilaterally, clear to auscultation and percussion. No rales, rhonchi or wheezes noted. No increased work of breathing, no retractions or nasal flaring. Abdomen/GI: Soft, with normal bowel sounds. No distension or tympany. No guarding or rebound. No evidence of tenderness throughout. Back: No spinal tenderness. No costovertebral tenderness. Skin: Warm, dry with normal turgor. Normal color with no rashes, no lesions, and no evidence of cellulitis. MS/ Extremity: Pulses equal, no cyanosis. Neurovascular intact. Full, normal range of motion. Neuro: Awake and alert, GCS 15, oriented to person, place, time, and situation. Cranial nerves II-XII grossly intact. Motor strength 5/5 in all extremities. Sensory grossly intact. Psych: Awake, alert, with orientation to person, place and time. Behavior, mood, and affect are within normal limits 20:35 ECG was reviewed by the Attending Physician. EKG at 1918 normal sinus rhythm with a sp4 rate of 73 normal EKG. Vital Signs: 18:14 BP 132 / 80; Pulse 85; Resp 18; Temp 97.9; Pulse Ox 96% ; Weight 86.18 kg; Height 5 ft. bp 10 in. ; 20:00 BP 158 / 93; Pulse 67; Resp 16; Pulse Ox 95% on R/A; km8 21:00 BP 150 / 89; Pulse 76; Resp 16; Pulse Ox 96% on R/A; km8 22:44 BP 156 / 106; Pulse 71; Resp 16; Pulse Ox 98% on R/A; km8 18:14 Body Mass Index 27.26 (86.18 kg, 177.8 cm) bp NIH Stroke Scale Scores: 18:18 NIHSS Score: 3 bp 19:17 NIHSS Score: 0 sp4 Herscher Coma Score: 19:17 Eye Response: spontaneous(4). Motor Response: obeys commands(6). Verbal Response: sp4 oriented(5). Total: 15. MDM: 18:17 Patient medically screened. [place] 19:21 ED course: EXAM DESCRIPTION: CT - Neck Angio - 11/07/2023 6:50 pm CLINICAL HISTORY: sp4 NUMBNESS COMPARISON: No comparisons TECHNIQUE: CT angiography of the neck vessels was performed with maximum intensity reformatted images. CAROTID STENOSIS REFERENCE USING NASCET CRITERIA: Mild - <50% stenosis. Moderate - 50-69% stenosis. Severe - 70-94% stenosis. Near occlusion - 95-99% stenosis. Occluded - 100% stenosis. All CT scans are performed using dose optimization technique as appropriate and may include automated exposure control or mA/KV adjustment according to patient size. FINDINGS: A left aortic arch is identified with normal three vessel configuration of the great vessels. No significant flow abnormality is seen of the common carotid bilaterally. No significant stenosis is identified involving the cervical segments of both internal carotid arteries. Normal flow is seen within both vertebral arteries. Nonspecific prominent level 1 cervical chain lymph nodes. IMPRESSION: No significant flow abnormality of the neck vessels is identified.. ED course: EXAM DESCRIPTION: CT - Head angio - 11/07/2023 6:50 pm CLINICAL HISTORY: STROKE ALERT COMPARISON: Ct Stroke Brain Wo Cont dated 11/07/2023 TECHNIQUE: CT angiography of the head was performed with maximum intensity reformatted images. 3D maximum intensity pixel (MIP) reconstructions were created All CT scans are performed using dose optimization technique as appropriate and may include automated exposure control or mA/KV adjustment according to patient size. FINDINGS: Anterior circulation: Absent left A1 segment. No aneurysm or large vessel occlusion. No hemodynamically significant stenosis. No arteriovenous malformation identified. 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 No aneurysm or large vessel occlusion. No hemodynamically significant stenosis. No arteriovenous malformation identified. IMPRESSION: No significant flow abnormality is detected. . ED course: EXAM DESCRIPTION: RAD - Chest Single View - 11/07/2023 6:54 pm CLINICAL HISTORY: COUGH COMPARISON: FINDINGS: Lines: None. Lungs: No evidence of edema or pneumonia. Pleural: No significant pleural effusions or pneumothorax. Cardiac: The heart size is within normal limits. Mediastinum: Within normal limits. Bones: No acute fractures. Other: None IMPRESSION: No acute cardiopulmonary disease.. ED course: EXAM DESCRIPTION: CT - Ct Stroke Brain Wo Cont - 11/07/2023 6:36 pm CLINICAL HISTORY: STROKE ALERT COMPARISON: None TECHNIQUE: All CT scans are performed using dose optimization technique as appropriate and may include automated exposure control or mA/KV adjustment according to patient size. FINDINGS: No intracranial hemorrhage, hydrocephalus or extra-axial fluid collection.No areas of brain edema or evidence of midline shift. The paranasal sinuses and mastoids are clear. The calvarium is intact. IMPRESSION: No acute intracranial abnormality. Conveyed to Dr. Randhawa by Dr. Alvarado at 1839 on 11/07/23. 11/07 02:48 Data reviewed: vital signs, nurses notes, EMS record, old medical records, lab test sp4 result(s), EKG, radiologic studies, CT scan, plain films. Consideration of Admission/Observation Escalation of care including admission/observation considered. ED course: Patient woke up and sobered up to some extent. He was able to start to stand up and ambulate without any difficulty. No sign of CVA at this time. Patient stable for discharge home. Advised to discontinue alcohol consumption.. 11/06 18:18 Order name: Basic Metabolic Panel; Complete Time: 20:18 [place] 11/06 18:18 Order name: CBC with Diff; Complete Time: 20:18 [place] 11/06 18:18 Order name: LFT's; Complete Time: 20:18 [place] 11/06 18:18 Order name: Magnesium; Complete Time: 20:18 [place] 11/06 18:18 Order name: NT PRO-BNP; Complete Time: 20:18 [place] 11/06 18:18 Order name: PT-INR; Complete Time: 20:18 [place] 11/06 18:18 Order name: Troponin HS; Complete Time: 20:18 [place] 11/06 18:18 Order name: Urinalysis w/ reflexes; Complete Time: 22:17 [place] 11/06 18:18 Order name: CRP; Complete Time: 20:18 [place] 11/06 18:28 Order name: ETOH Level; Complete Time: 20:18 bp 11/06 18:28 Order name: UDS; Complete Time: 22:17 bp 11/06 20:22 Order name: Troponin High Sensitivity; Complete Time: 22:38 sp4 11/06 18:18 Order name: XRAY Chest (1 view); Complete Time: 19:00 [place] 11/06 18:18 Order name: CT Stroke Brain w/o Contrast; Complete Time: 19:00 [place] 11/06 18:18 Order name: CT Head Angio; Complete Time: 19:00 [place] 11/06 18:18 Order name: CT Neck Angio; Complete Time: 19: [facility] 11/06 18:18 Order name: EKG; Complete Time: 18: [facility] 11/06 18:18 Order name: Cardiac monitoring; Complete Time: [facility] 11/06 18:18 Order name: EKG - Nurse/Tech; Complete Time: [facility] 11/06 18:18 Order name: IV Saline Lock; Complete Time: : [facility] 11/06 18:18 Order name: Labs collected and sent; Complete Time: [facility] 11/06 18:18 Order name: O2 Per Protocol; Complete Time: : [facility] 11/06 18:18 Order name: O2 Sat Monitoring; Complete Time: : [facility] EC/01 20:35 Rate is 73 beats/min. Rhythm is regular, Normal Sinus Rhythm. QRS [place] is Normal. DC sp4 interval is normal. QRS interval is normal. QT interval is normal. No Q waves. T waves are Normal. No ST changes noted. Clinical impression: Normal ECG. Interpreted by me. Reviewed by me. Administered Medications: 19:45 Drug: NS 0.9% IV 1000 ml IV at 1 bolus Per protocol; 1000 mL bolus Route: IV; Rate: 1 km8 bolus; Site: right antecubital; 22:00 Follow up: IV Status: Completed infusion; IV Intake: 1000ml km8 19:45 Drug: foLIC Acid IVPB 1 mg IVPB once Route: IVPB; Site: right antecubital; [facility] 21:53 Follow up: IV Status: Completed infusion; IV Intake: 0.2ml km8 19:45 Drug: Thiamine IV 100 mg IV at bolus once Route: IV; Rate: bolus; Site: right [facility] antecubital; 21:53 Follow up: IV Status: Completed infusion; IV Intake: 1ml km8 19:45 Drug: Banana Bag - (Multivitamin IV 1 amp, NS 0.9% IV 1000 ml, Thiamine IV 100 mg, km8 foLIC Acid IVPB 1 mg) IV at 500 ml/hr once Route: IV; Rate: 500 ml/hr; Site: right antecubital; 22:02 Follow up: IV Status: Completed infusion; IV Intake: 1000ml km8 Disposition Summary: 11/07/23 22:42 Discharge Ordered Problem: new sp4 Symptoms: have improved sp4 Condition: Stable sp4 Diagnosis - Alcohol use, unspecified with intoxication sp4 - Muscle weakness (generalized) sp4 Followup: sp4 - With: Private Physician - When: 7 - 10 days - Reason: Recheck today's complaints Discharge Instructions: - Discharge Summary Sheet sp4 - Alcohol Intoxication sp4 Forms: - Patient Portal Instructions sp4 NIH Stroke Scale - NIH Stroke Score Date: 11/07/2023 Time: 18:18 Total Score = 3 10. Dysarthria (speech clarity - read or repeat words) - 1(Mild to Moderate) 11. Extinction and Inattention (visual/tactile/auditory/spatial/personal) - 0(No abnormality) 1a. Level of Consciousness (LOC) - 1(Not Alert) 1b. Level of Consciousness (LOC) (Month \T\ Age) - 0(Both) 1c. LOC Commands (Open \T\ Closes Eyes/Impress Associate) - 0(Both) 2. Best Gaze (Lateral Gaze Paresis) - 0(Normal) 3. Visual Field Loss - 0(No visual loss) 4. Facial Palsy - 0(Normal) 5a. Left Arm: Motor (10-second hold) - 0(No drift) 5b. Right Arm: Motor (10-second hold) - 0(No drift) 6a. Left Leg: Motor (5-second hold - always test supine) - 0(No drift) 6b. Right Leg: Motor (5-second hold - always test supine) - 0(No drift) 7. Limb Ataxia (finger/nose \T\ heel/alexandre - test with eyes open) - 0(Absent) 8. Sensory Loss (pinprick arms/legs/face) - 0(Normal) 9. Best Language: Aphasia (description/naming/reading) - 1(Mild to moderate aphasia) Initials: bp NIH Stroke Scale - NIH Stroke Score Date: 11/07/2023 Time: 19:17 Total Score = 0 10. Dysarthria (speech clarity - read or repeat words) - 0(Normal) 11. Extinction and Inattention (visual/tactile/auditory/spatial/personal) - 0(No abnormality) 1a. Level of Consciousness (LOC) - 0(Alert) 1b. Level of Consciousness (LOC) (Month \T\ Age) - 0(Both) 1c. LOC Commands (Open \T\ Closes Eyes/Impress Associate) - 0(Both) 2. Best Gaze (Lateral Gaze Paresis) - 0(Normal) 3. Visual Field Loss - 0(No visual loss) 4. Facial Palsy - 0(Normal) 5a. Left Arm: Motor (10-second hold) - 0(No drift) 5b. Right Arm: Motor (10-second hold) - 0(No drift) 6a. Left Leg: Motor (5-second hold - always test supine) - 0(No drift) 6b. Right Leg: Motor (5-second hold - always test supine) - 0(No drift) 7. Limb Ataxia (finger/nose \T\ heel/alexandre - test with eyes open) - 0(Absent) 8. Sensory Loss (pinprick arms/legs/face) - 0(Normal) 9. Best Language: Aphasia (description/naming/reading) - 0(No aphasia) Initials: sp4 Signatures: Dispatcher [employer] EDMS Nino Randhawa MD MD cha Peltier, Brian, RN RN Artur Johnson MD MD sp4 Stacey Liu RN RN km8 Corrections: (The following items were deleted from the chart) 18:19 18:19 BASIC METABOLIC PANEL+C.LAB.BRZ ordered. EDMS EDMS 18:19 18:19 CBC+H.LAB.BRZ ordered. EDMS EDMS 18:19 18:19 HEPATIC FUNCTION+C.LAB.BRZ ordered. EDMS EDMS 18:19 18:19 MAGNESIUM+C.LAB.BRZ ordered. EDMS EDMS 18:19 18:19 PROBNP+C.LAB.BRZ ordered. EDMS EDMS 18:19 18:19 PROTIME (+INR)+COAG.LAB.BRZ ordered. EDMS EDMS 18:19 18:19 Troponin High Sensitivity+C.LAB.BRZ ordered. EDMS EDMS 18:19 18:19 Urinalysis+U.LAB.BRZ ordered. EDMS EDMS 18:19 18:19 C-REACTIVE PROTEIN+C.LAB.BRZ ordered. EDMS EDMS
--- NOTE | 2023-11-07 22:43 | ER ---
[facility] Name[facility] Brigido T[facility] Age: 53 yrs Sex: Male : 1970 Arrival Date: 11/07/2023 Time: 18:09 Bed 2 Private MD: Diagnosis: Alcohol use, unspecified with intoxication;Muscle weakness (generalized) Presentation: 11/06 18:14 Chief complaint: EMS states: PT C/O LEFT SIDED WEAKNESS AND INABILITY TO MOVE, BUT bp OBSERVED TO MOVE ALL EXTREMITIES AND AMBULATE ON SCENE. SEEN FOR SAME 4 DAYS AGO AND DC HOME. Coronavirus screen: At this time, the client does not indicate any symptoms associated with coronavirus-19. Ebola Screen: No symptoms or risks identified at this time. No acute neurological deficit is noted. The patients blood glucose was checked before arriving to the hospital and was found to be normal. Initial Sepsis Screen: Does the patient meet any 2 criteria? No. Patient's initial sepsis screen is negative. Does the patient have a suspected source of infection? No. Patient's initial sepsis screen is negative. Risk Assessment: Do you want to hurt yourself or someone else? Patient reports no desire to harm self or others. Onset of symptoms is unknown. Care prior to arrival: IV initiated. 22 GA, in the left forearm, Glucose check: 110. 18:14 Method Of Arrival: EMS: [facility] bp 18:14 Acuity: SIDAR 3 bp Triage Assessment: 18:16 The onset of the patients symptoms was November 06, 2023 at 21:00. General: Appears in no bp apparent distress. Behavior is cooperative, drowsy, Smells of alcohol. Pain: Denies pain. EENT: No deficits noted. Neuro: Reports weakness. Cardiovascular: Rhythm is sinus rhythm. Respiratory: No deficits noted. GI: No signs and/or symptoms were reported involving the gastrointestinal system. : No signs and/or symptoms were reported regarding the genitourinary system. Derm: No deficits noted. Musculoskeletal: No deficits noted. Stroke Activation: Symptom onset > 6 hours Physician: ED Attending; Name: ; Notified At: ; Arrived At: Physician: Mid-Level Provider; Name: ; Notified At: ; Arrived At: Physician: [not used]; Name: ; Notified At: ; Arrived At: Physician: [not used]; Name: ; Notified At: ; Arrived At: Physician: [not used]; Name: ; Notified At: ; Arrived At: Historical: - Allergies: 18:16 No Known Allergies; bp - PMHx: 18:16 Diabetes mellitus; Hypertensive disorder; Cerebrovascular accident; bp - Immunization history:: Adult Immunizations up to date. - Infectious Disease History:: Denies. - Social history:: Smoking status: unknown. - Family history:: not pertinent. Screenin:18 [facility] ED Fall Risk Assessment (Adult) History of falling in the last 3 months, bp including since admission No falls in past 3 months (0 pts). Abuse screen: Denies threats or abuse. Denies injuries from another. Nutritional screening: No deficits noted. Tuberculosis screening: No symptoms or risk factors identified. Assessment: 18:18 VAN Scoring: Arm Drift: Patients demonstrates NO arm weakness. Patient is VAN Negative. bp Gretel Swallow Protocol Exclusion Criteria: Unable to remain alert for testing: No NPO for medical/surgical reason by provider order No Tracheostomy tube present No No thin liquids due to preexisting dysphagia/baseline modified diet thickened liquids No Exclusion Criteria Result: Proceed Brief Cognitive Screen What is your name? Normal, Where are you right now? Normal, What year is it? Normal. Oral Mechanism Examination Facial Symmetry: Normal, Motion: Normal, Lip Closure: Normal, Oral Mechanism Result: Normal. 3 oz Water Swallow Challenge: Pt able to drink all water without stopping, coughing, choking or throat clearing: Yes Result: PASS Notified: Nino Randhawa MD. TNKase (Tenecteplase) Screening: Contraindications: Patient reports onset of signs and symptoms of stroke greater than 6 hours ago: Yes. Rapidly improving condition or minor deficit: Yes. General: Appears in no apparent distress. Behavior is cooperative, appropriate for age, drowsy, Smells of alcohol. 20:00 Reassessment: Patient appears in no apparent distress at this time. No changes from km8 previously documented assessment. Patient and/or family updated on plan of care and expected duration. Pain level reassessed. Patient is alert, oriented x 3, equal unlabored respirations, skin warm/dry/pink. 21:25 Reassessment: Patient appears in no apparent distress at this time. No changes from km8 previously documented assessment. Patient and/or family updated on plan of care and expected duration. Pain level reassessed. Patient is alert, oriented x 3, equal unlabored respirations, skin warm/dry/pink. 22:45 Reassessment: Patient appears in no apparent distress at this time. Patient and/or km8 family updated on plan of care and expected duration. Pain level reassessed. Patient is alert, oriented x 3, equal unlabored respirations, skin warm/dry/pink. pt able to walk with his cane to the bathroom Patient states feeling better. Patient states symptoms have improved. Vital Signs: 18:14 BP 132 / 80; Pulse 85; Resp 18; Temp 97.9; Pulse Ox 96% ; Weight 86.18 kg; Height 5 ft. bp 10 in. ; 20:00 BP 158 / 93; Pulse 67; Resp 16; Pulse Ox 95% on R/A; km8 21:00 BP 150 / 89; Pulse 76; Resp 16; Pulse Ox 96% on R/A; km8 22:44 BP 156 / 106; Pulse 71; Resp 16; Pulse Ox 98% on R/A; km8 18:14 Body Mass Index 27.26 (86.18 kg, 177.8 cm) bp Rich Coma Score: 19:17 Eye Response: spontaneous(4). Motor Response: obeys commands(6). Verbal Response: sp4 oriented(5). Total: 15. NIH Stroke Scale Scores: 18:18 NIHSS Score: 3 bp 19:17 NIHSS Score: 0 sp4 ED Course: 18:14 Patient arrived in ED. bp 18:16 Triage completed. bp 18:16 Arm band placed on. bp 18:17 Nino Randhawa MD is Attending Physician. haleigh 18:18 Patient has correct armband on for positive identification. Bed in low position. Call bp light in reach. 18:18 Maintain EMS IV. Dressing intact. Good blood return noted. Site clean \T\ dry. Gauge \T\ bp site: 22 GA LEFT FA. 18:27 Prince Bolanos, RN is Primary Nurse. bp 18:38 CT Stroke Brain w/o Contrast In Process Unspecified. EDMS 18:52 CT Head Angio In Process Unspecified. EDMS 18:52 CT Neck Angio In Process Unspecified. EDMS 18:56 XRAY Chest (1 view) In Process Unspecified. EDMS 19:01 Attending Physician role handed off by Nino Randhawa MD sp4 19:01 Artur Osborne MD is Attending Physician. sp4 21:26 Primary Nurse role handed off by Prince Bolanos, NICOL km8 21: Stacey Liu, RN is Primary Nurse. km8 : Diet: Patient given water. Tolerated well. 8 21: Troponin High Sensitivity Sent. 8 21:52 UDS Sent. :53 Urinalysis w/ reflexes Sent. 8 :44 Provided Education on: d/c teaching. :44 No provider procedures requiring assistance completed. 8 22:53 IV discontinued, intact, bleeding controlled, No redness/swelling at site. Pressure 8 dressing applied, x2. Administered Medications: 19:45 Drug: NS 0.9% IV 1000 ml IV at 1 bolus Per protocol; 1000 mL bolus Route: IV; Rate: 1 km8 bolus; Site: right antecubital; 22:00 Follow up: IV Status: Completed infusion; IV Intake: 1000ml 8 19:45 Drug: foLIC Acid IVPB 1 mg IVPB once Route: IVPB; Site: right antecubital; 8 :53 Follow up: IV Status: Completed infusion; IV Intake: 0.2ml 8 19:45 Drug: Thiamine IV 100 mg IV at bolus once Route: IV; Rate: bolus; Site: right [facility] antecubital; :53 Follow up: IV Status: Completed infusion; IV Intake: 1ml 8 19:45 Drug: Banana Bag - (Multivitamin IV 1 amp, NS 0.9% IV 1000 ml, Thiamine IV 100 mg, km8 foLIC Acid IVPB 1 mg) IV at 500 ml/hr once Route: IV; Rate: 500 ml/hr; Site: right antecubital; 22:02 Follow up: IV Status: Completed infusion; IV Intake: 1000ml 8 Medication: 18:18 VIS not applicable for this client. bp Intake: :53 IV: 1ml; Total: 1ml. 8 :53 IV: 0ml; Total: 1ml. 8 22:00 IV: 1000ml; Total: 1001ml. 8 22:02 IV: 1000ml; Total: 2001ml. 8 Output: 19:59 Urine: 1250ml (Voided); Total: 1250ml. 8 21:59 Urine: 400ml (Voided); Total: 1650ml. km8 Outcome: 22:42 Discharge ordered by MD. domínguez 22:53 Discharged to home via wheelchair, with friend, km8 22:53 Condition: good 22:53 Discharge instructions given to patient, family, Instructed on discharge instructions, follow up and referral plans. Demonstrated understanding of instructions, follow-up care, 22:53 Patient left the ED. km8 NIH Stroke Scale - NIH Stroke Score Date: 11/07/2023 Time: 18:18 Total Score = 3 10. Dysarthria (speech clarity - read or repeat words) - 1(Mild to Moderate) 11. Extinction and Inattention (visual/tactile/auditory/spatial/personal) - 0(No abnormality) 1a. Level of Consciousness (LOC) - 1(Not Alert) 1b. Level of Consciousness (LOC) (Month \T\ Age) - 0(Both) 1c. LOC Commands (Open \T\ Closes Eyes/Service Car Driver) - 0(Both) 2. Best Gaze (Lateral Gaze Paresis) - 0(Normal) 3. Visual Field Loss - 0(No visual loss) 4. Facial Palsy - 0(Normal) 5a. Left Arm: Motor (10-second hold) - 0(No drift) 5b. Right Arm: Motor (10-second hold) - 0(No drift) 6a. Left Leg: Motor (5-second hold - always test supine) - 0(No drift) 6b. Right Leg: Motor (5-second hold - always test supine) - 0(No drift) 7. Limb Ataxia (finger/nose \T\ heel/alexandre - test with eyes open) - 0(Absent) 8. Sensory Loss (pinprick arms/legs/face) - 0(Normal) 9. Best Language: Aphasia (description/naming/reading) - 1(Mild to moderate aphasia) Initials: bp NIH Stroke Scale - NIH Stroke Score Date: 11/07/2023 Time: 19:17 Total Score = 0 10. Dysarthria (speech clarity - read or repeat words) - 0(Normal) 11. Extinction and Inattention (visual/tactile/auditory/spatial/personal) - 0(No abnormality) 1a. Level of Consciousness (LOC) - 0(Alert) 1b. Level of Consciousness (LOC) (Month \T\ Age) - 0(Both) 1c. LOC Commands (Open \T\ Closes Eyes/Service Car Driver) - 0(Both) 2. Best Gaze (Lateral Gaze Paresis) - 0(Normal) 3. Visual Field Loss - 0(No visual loss) 4. Facial Palsy - 0(Normal) 5a. Left Arm: Motor (10-second hold) - 0(No drift) 5b. Right Arm: Motor (10-second hold) - 0(No drift) 6a. Left Leg: Motor (5-second hold - always test supine) - 0(No drift) 6b. Right Leg: Motor (5-second hold - always test supine) - 0(No drift) 7. Limb Ataxia (finger/nose \T\ heel/alexandre - test with eyes open) - 0(Absent) 8. Sensory Loss (pinprick arms/legs/face) - 0(Normal) 9. Best Language: Aphasia (description/naming/reading) - 0(No aphasia) Initials: sp4 Signatures: Dispatcher [employer] Nino Hayes MD MD cha Peltier, Brian, RN RN Artur Osborne MD MD sp4 Stacey Liu RN RN km8
[2023-11-07 23:15] VITALS: BP 156/106; TEMP 97.9; O2SAT 98
--- NOTE | 2023-11-09 14:10 | EKG ---
Test Date: 2023-11-07 Test Time: 19:18:40 [employer]: ROBYN MEASUREMENT RESULTS: Intervals: Rate: 73 OH: 192 QRSD: 88 QT: 418 QTc: 460 [place]: P: 65 OH: 192 QRS: 16 T: 62 INTERPRETIVE STATEMENTS: Normal sinus rhythm Normal ECG No previous ECG available for comparison Electronically Signed On 11-09-23 14:05:26 CDT by David Kim
== END 2023-11-07 22:53 | disposition home or self-care (01) ==
LOC: MERGE 18:09 → ER 18:09
DX: M62.81 Muscle weakness (generalized) (principal); F10.929 Alcohol use, unspecified with intoxication, unspecified; I10 Essential (primary) hypertension; Z86.73 Personal history of transient ischemic attack (TIA), and cerebral infarction without residual deficits
CPT/HCPCS: 96365; 96367; 96368; 93005; 85025; 81001; 80048; 36415; 83735; 85610; 82565; 80076; 84484 ×2; 83880; 80307; 86140; 70496; 70498; 70450; 71045; 99285; 82077; Q9967; J3411; J7030 ×2

== ENCOUNTER 2024-10-24 09:15 | Emergency (ER) | payer OTHER, SELFPAY ==
[2024-10-24] MEDS ORDERED: D50W 25 GM/50 ML SYRINGE IV ONE (09:48)
[2024-10-24] MEDS ORDERED: DOPAMINE HCL IN DEXTROSE 5 % 400 MG/250 ML KIT IV ONE (09:54)
[2024-10-24] MEDS ORDERED: NOREPINEPHRINE BITARTRATE/D5W 4 MG/250 ML BAG IV ONE ×2 (10:17→12:23)
[2024-10-24 10:20] LABS: Absolute Basophils 0.1 K/uL (0-0.5); Absolute Lymphocytes (CBC) 1.6 K/uL (0.7-4.9); Absolute Monocytes 1.7 K/uL (0.1-1.3); Absolute Neutrophil 9.3 K/uL (1.8-8.0); Basophils % 0.7 % (0-1.3); Eosinophils % 0.1 % (0-4.4); Hematocrit 33.4 % (39.6-49.0); Hemoglobin 11.2 g/dL (13.6-17.9); Lymphocytes % 12.5 % (15.3-44.8); MCH 33.2 pg (27.0-35.0); MCHC 33.4 g/dL (32.0-36.0); MCV 99.4 fL (80-100); MPV 8.4 fL (7.6-11.3); Monocytes % 13.1 % (3.3-12.3); Neutrophils % 73.6 % (41.7-73.7); Nucleated Red Blood Cells % 0.2 % (0-0); Platelets 274 thou/uL (152-406); RBC Red Blood Cell Count 3.36 M/uL (4.33-5.43); Red Cell Distribution Width 17.9 % (12.1-15.2)
[2024-10-24] MEDS ORDERED: D5 0.9 NS 1,000 ML IV ONE (10:28)
[2024-10-24] MEDS ORDERED: NA CHLORIDE 0.9% 1,000 ML ONE (10:29)
--- NOTE | 2024-10-24 10:31 | RAD REPORT ---
EXAMINATION: ONE VIEW CHEST XR CLINICAL INDICATION: Male, 54 years old.,central line placement TECHNIQUE: Frontal chest projection is submitted. Examination is limited by patient positioning and t echnique. COMPARISON: 09/03/2023 FINDINGS: Left IJ CVC has been placed with catheter tip projecting in the upper right atrium. The lungs are minerva ssly clear apart from linear right infrahilar atelectasis, although suboptimal inspiratory effort somewhat limits evaluation. No pneumothorax or sizable effusion. The heart is normal in size. Medias tinal contours are unremarkable. IMPRESSION: Right IJ CVC tip in the upper right atrium. No acute intrathoracic abnormalities.
[2024-10-24 10:43] LABS: Albumin 1.4 g/dL (3.4-5.0); Albumin/Globulin Ratio 0.3 (1.1-1.8); Anion Gap 23.4 mEq/L (5.0-15.0); Bilirubin Total 19.5 mg/dL (0.2-1.0); Globulin 5.1 g/dL (2.3-3.5); Potassium 5.4 mEq/L (3.5-5.1); Protein, Total 6.5 g/dL (6.4-8.2)
[2024-10-24 10:44] LABS: PT Prothrombin Time 53.4 SECONDS (10-13.0); PTT, Activated Partial Thromb 89.3 SECONDS (27.2-37.4); Protime INR 5.06
[2024-10-24] MEDS ORDERED: PIPERACIL/TAZO 4.5 GM VIAL IV ONE (11:09)
[2024-10-24] MEDS ORDERED: CALCIUM GLUCONATE 1 GM IVPB 2 GM/100 ML BAG IV ONE (11:09)
[2024-10-24] MEDS ORDERED: NA CHLORIDE 0.9% 100 ML ONE (11:10)
--- NOTE | 2024-10-24 11:34 | ER ---
Nurse's Notes [facility] Name: Brigido Burgess Age: 54 yrs Sex: Male : 1970 Arrival Date: 10/24/2024 Time: 09:15 Bed 2 Private MD: Diagnosis: Liver failure;Elevated bilirubin;Hyponatremia;Hypocalcemia;Bradycardia, unspecified;Hypotension, unspecified;Acute Renal Failure;Anemia, unspecified;Elevated INR Presentation: 10/24 09:24 Chief complaint: EMS states: 911 CALL FOR AMS, HYPOGLYCEMIC AND HYPOTENSIVE ON SCENE. bp PROFOUND JAUNDICE, RECENT D/C FROM [facility] FOR "LIVER STUFF". Coronavirus screen: At this time, the client does not indicate any symptoms associated with coronavirus-19. Ebola Screen: No symptoms or risks identified at this time. Initial Sepsis Screen: Does the patient meet any 2 criteria? Systolic BP < 90 mmHg. Altered Mental Status. Yes. Risk Assessment: Do you want to hurt yourself or someone else? Patient reports no desire to harm self or others. Onset of symptoms is unknown. Care prior to arrival: CPR and external pacemaker initiated Medication(s) given: D50, 1 amp, Glucagon, IV initiated. LEFT HUMERUS IO Glucose check: 22. 09:24 Method Of Arrival: EMS: [facility] bp 09:24 Acuity: SIDRA 1 bp Triage Assessment: :26 General: Appears distressed, unkempt, Behavior is drowsy, listless. Pain: Unable to use bp pain scale. Does not appear to understand pain scale. EENT: Sclera/Cornea JAUNDICED. Neuro: Level of Consciousness is lethargic, Oriented to person, place. Cardiovascular: Rhythm is Respiratory: No deficits noted. GI: No signs and/or symptoms were reported involving the gastrointestinal system. : No signs and/or symptoms were reported regarding the genitourinary system. Derm: Skin is jaundiced. Musculoskeletal: No deficits noted. Historical: - Allergies: : No Known Allergies; bp - PMHx: :26 Cerebrovascular accident; Diabetes - NIDDM; diabetes mellitus; Hypertension; bp Hypertensive disorder; Cirrhosis of liver; - Immunization history:: Adult Immunizations unknown. - Infectious Disease History:: Denies. - Social history:: Smoking status: unknown. Screenin:28 [facility] ED Fall Risk Assessment (Adult) History of falling in the last 3 months, bp including since admission No falls in past 3 months (0 pts) Confusion or Disorientation Yes (5 pts) Intoxicated or Sedated No (0 pts) Impaired Gait No (0 pts) Mobility Assist Device Used No (0 pt) Altered Elimination No (0 pt) Score/Fall Risk Level 3 or more points = High Risk Oriented to surroundings. Abuse screen: Denies threats or abuse. Denies injuries from another. Nutritional screening: No deficits noted. Tuberculosis screening: No symptoms or risk factors identified. Assessment: 09:28 General: Appears distressed, Behavior is listless, SEE TRIAGE NOTE. bp 10:00 Reassessment: TRANSCUTANEOUS PACING STARTED AT 6O, 70mA. bp 11:00 Reassessment: C/S WITH FAMILY, TRANSFER PENDING. bp 12:00 Reassessment: Transcutaneous pacing increased to 80bpm, 100mA by , pt tolerating aa5 well. . 12:45 Reassessment: La Nena hugger blanket applied for warming measures. . aa5 13:43 Reassessment: Life flight at bedside. . aa5 Vital Signs: 09:24 BP 55 / 19; Pulse 39; bp 10:00 BP 63 / 43; Pulse 41; Resp 16; Pulse Ox 100% ; bp 10:00 Weight 70.76 kg (M); aa5 10:25 BP 74 / 47; Pulse 60; Resp 28 S; Pulse Ox 100% on R/A; aa5 10:30 BP 86 / 69; Pulse 62; Resp 22 S; Pulse Ox 100% on R/A; aa5 10:35 BP 94 / 39; Pulse 60; Resp 24 S; Pulse Ox 100% on R/A; aa5 10:40 BP 91 / 65; Pulse 55; Resp 24 S; Pulse Ox 98% on R/A; aa5 10:50 BP 104 / 61; Pulse 60; Resp 26 S; Pulse Ox 99% on R/A; aa5 10:50 Weight 86.18 kg; sb4 11:00 BP 97 / 73; Pulse 68; Resp 19; Pulse Ox 100% ; bp 11:10 BP 87 / 51; Pulse 60; Resp 26 S; Pulse Ox 99% on R/A; aa5 11:20 BP 87 / 51; Pulse 60; Resp 22; Temp 96.8(A); Pulse Ox 98% on R/A; aa5 11:30 BP 102 / 71; Pulse 60; Resp 24 S; Pulse Ox 99% on R/A; aa5 11:40 BP 101 / 69; Pulse 60; Resp 26 S; Pulse Ox 100% on R/A; aa5 11:50 BP 86 / 50; Pulse 60; Resp 20 S; Pulse Ox 100% on R/A; aa5 12:00 BP 83 / 71; Pulse 80; Resp 26 S; Pulse Ox 99% ; aa5 12:15 BP 82 / 58; Pulse 80; Resp 24 S; Pulse Ox 99% ; aa5 12:25 BP 87 / 66; Pulse 80; Resp 25 S; Pulse Ox 99% on R/A; aa5 12:30 BP 109 / 72; Pulse 80; Resp 25 S; Pulse Ox 100% on R/A; aa5 12:40 BP 98 / 65; Pulse 80; Resp 27 S; Pulse Ox 100% on R/A; aa5 12:55 BP 101 / 78; Pulse 80; Resp 24 S; Temp 88.6(Ca); Pulse Ox 98% on R/A; aa5 13:05 BP 92 / 63; Pulse 80; Resp 24 S; Pulse Ox 97% on R/A; aa5 13:15 BP 102 / 78; Pulse 80; Resp 24 S; Pulse Ox 99% on R/A; aa5 13:30 BP 106 / 81; Pulse 80; Resp 25 S; Temp 88.8(Ca); Pulse Ox 99% on R/A; aa5 12:00 MAP 76 aa5 12:15 MAP 68 aa5 12:25 MAP 73 aa5 13:05 MAP 73 aa5 ED Course: 09:19 Patient arrived in ED. bd 09:19 Ramirez Todd DO is Attending Physician. sb4 09:24 Prince Bolanos, RN is Primary Nurse. bp 09:26 Triage completed. bp 09:26 Arm band placed on. bp 09:28 Patient has correct armband on for positive identification. bp 09:28 Maintain EMS IV. Dressing intact. Good blood return noted. Site clean \\T\\ dry. Gauge \\T\\ bp site: LEFT HUMERUS IO. Flushed with 10 mL NS. 10:00 Assisted provider with central line placement. Set up central line tray. Triple lumen bp line placed in left internal jugular. Line placed by Ramirez Todd DO Placement verified by CXR, blood return, Dressed with Tegaderm, Blood was collected. Patient tolerated well. Before procedure, did Practitioner(s) obtain informed consent? No. Patient \\T\\ family education about procedure, CLABSI prevention and S/S of infection? No. Time-out/Briefing performed prior to start of procedure? Yes. Was handwashing/sanitizing done immediately prior to procedure? Yes. Was patient positioned to in a way to prevent air embolism? Yes. Was procedure site sterilized? Yes, with chlorhexidine. Was the site allowed to dry? Yes. Was local anesthetic and/or sedation utilized? No. During the procedure, did the Practitioner(s) maintain a sterile field? Yes. Were unused ports clamped during insertion? Yes. Was a 2nd qualified MD obtained after 3 unsuccessful insertion attempts? N/A. Was blood aspirated from each lumen? Yes. After the procedure, did the Practitioner(s) clean the site and apply a sterile dressing? Yes. 10:11 XRAY Chest (1 view) In Process Unspecified. EDMS 10:58 initiated transfer to [facility]. bd 11:35 [facility] unable to accepted pt at this time due to not being able to do a liver transplant. initiated transfer to [facility]. 12:31 no MICU beds available at [facility] at this time pt was put on a waiting list, per marco a Menezes 12:45 Foster cath inserted, using sterile technique, 16 Fr., by mn, balloon inflated, to aa5 gravity drainage. 13:19 pt accepted in transfer to [facility] ER by dr Duckworth admin approval given by marco a Arenas RN. Administered Medications: 10:25 Drug: Norepinephrine IV 0.1 mcg/kg/min IV at calculated rate See Administration aa5 Instructions; (Standard concentration 4 mg / 250 mL D5W); Recommended max rate 3 mcg/kg/min; Titrate 0.05 mcg/kg/min as often as every 5 minutes to achieve goal (see titration policy); Goal parameter MAP greater than 65 mmHg. Route: IV; Rate: calculated rate; Site: left jugular; 10:30 Follow up: Rate change 30 mcg/min; per VO. aa5 13:55 Follow up: IV Status: Infusion continued upon transfer aa5 10:32 Drug: D5-NS IV 1000 ml IV at 125 ml/hr continuous Route: IV; Rate: 125 ml/hr; Site: aa5 left jugular; 13:55 Follow up: IV Status: Infusion continued upon transfer aa5 10:34 Drug: NS 0.9% IV 500 ml IV at 1000 ml once; to be given as a bolus over 30 minutes aa5 Route: IV; Rate: 1000 ml; Site: left jugular; 11:04 Follow up: IV Status: Completed infusion; IV Intake: 500ml aa5 10:51 CANCELLED (Physician Discretion): [email or web address] grams IV at calculated rate once; Given ms3 slow IV push per pharmacy instructions 10:55 CANCELLED (Physician Discretion): ns 0.9% (30 ml/kg) 30 ml/kg IV at bolus once; Sepsis ms3 Protocol; to be given as a bolus over 90 minutes 11:19 Drug: Piperacillin-Tazobactam IVPB 4.5 grams IVPB once over 60 mins; (mix in 100 mL NS) aa5 Route: IVPB; Infused Over: 60 mins; Site: left jugular; 11:40 Follow up: Response: No adverse reaction aa5 12:19 Follow up: Response: No adverse reaction; IV Status: Completed infusion aa5 11:20 Drug: Calcium Gluconate IVPB 2 grams IVPB once over 60 mins; (mix in NS 100 mL) Route: aa5 IVPB; Infused Over: 60 mins; Site: left jugular; 11:40 Follow up: Response: No adverse reaction aa5 12:20 Follow up: IV Status: Completed infusion aa5 12:10 Drug: DOPamine IV (400mg/250mL Premix) 5 mcg/kg/min IV at calculated rate See bp Administration Instructions; Recommended max rate 20 mcg/kg/min; Titrate 2.5 mcg/kg/min as often as every 5 minutes to achieve goal (see titration policy); Goal parameter MAP greater than 65 mmHg. [*Low doses 1 to 4 mcg/kg/min may result in hypotension, decreased SVR*] Route: IV; Rate: calculated rate; Site: left jugular; 13:55 Follow up: IV Status: Infusion continued upon transfer aa5 Intake: 11:04 IV: 500ml; Total: 500ml. aa5 Outcome: 11:34 ER care complete, transfer ordered by MD. ms3 14:14 Patient left the ED. aa5 Signatures: Dispatcher [employer] EDMS Zoya Wilson Audri, RN RN aa5 Prince Bolanos RN RN bp Ramirez Todd, DO ms3 Maria L Alanis PA-C PA-C sb4 Corrections: (The following items were deleted from the chart) 11:49 10:25 BP 74 / 47; aa5 aa5 12:19 10:00 67.13 kg Measured; aa5 aa5 14:05 12:55 BP 101 / 78; Pulse 80bpm; Resp 24bpm; Spontaneous; Pulse Ox 98% RA; aa5 aa5
--- NOTE | 2024-10-24 11:34 | EDPHYS ---
Physician Documentation [facility] Name: Brigido Burgess Age: 54 yrs Sex: Male : 1970 Arrival Date: 10/24/2024 Time: 09:15 Bed 2 Private MD: ED Physician Ramirez Todd HPI: 10/24 10:09 This 54 yrs old Black Male presents to ER via EMS with complaints of Altered Mental ms3 Status. 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 EMS states on their arrival patient's blood glucose level was 20. Glucagon was given and D10 started. Heart rate was 38 and transcutaneous pacing was started at 60 bpm and capture was obtained at 155 mA.. Historical: - Allergies: 09:26 No Known Allergies; bp - PMHx: 09:26 Cerebrovascular accident; Diabetes - NIDDM; diabetes mellitus; Hypertension; bp Hypertensive disorder; Cirrhosis of liver; - Immunization history:: Adult Immunizations unknown. - Infectious Disease History:: Denies. - Social history:: Smoking status: unknown. ROS: 10:15 Unable to obtain ROS due to altered mental status, ms3 Exam: 10:15 Constitutional: The patient appears alert, awake, obviously ill, ms3 10:15 Eyes: Pupils: equal, round, and reactive to light and accomodation, Sclera: icterus, is present, 10:15 Cardiovascular: Rate: bradycardic, Rhythm: regular, 10:15 ECG was reviewed by the Attending Physician. 10:44 Skin: Appearance: Color: jaundiced, ms3 11:01 Head/Face: Normocephalic, atraumatic. ms3 11:01 Abdomen/GI: Soft, non-tender, with normal bowel sounds. No distension or tympany. No guarding or rebound. No evidence of tenderness throughout. 11:01 Musculoskeletal/extremity: Vital Signs: 09:24 BP 55 / 19; Pulse 39; bp 10:00 BP 63 / 43; Pulse 41; Resp 16; Pulse Ox 100% ; bp 10:00 Weight 70.76 kg (M); aa5 10:25 BP 74 / 47; Pulse 60; Resp 28 S; Pulse Ox 100% on R/A; aa5 10:30 BP 86 / 69; Pulse 62; Resp 22 S; Pulse Ox 100% on R/A; aa5 10:35 BP 94 / 39; Pulse 60; Resp 24 S; Pulse Ox 100% on R/A; aa5 10:40 BP 91 / 65; Pulse 55; Resp 24 S; Pulse Ox 98% on R/A; aa5 10:50 BP 104 / 61; Pulse 60; Resp 26 S; Pulse Ox 99% on R/A; aa5 10:50 Weight 86.18 kg; sb4 11:00 BP 97 / 73; Pulse 68; Resp 19; Pulse Ox 100% ; bp 11:10 BP 87 / 51; Pulse 60; Resp 26 S; Pulse Ox 99% on R/A; aa5 11:20 BP 87 / 51; Pulse 60; Resp 22; Temp 96.8(A); Pulse Ox 98% on R/A; aa5 11:30 BP 102 / 71; Pulse 60; Resp 24 S; Pulse Ox 99% on R/A; aa5 11:40 BP 101 / 69; Pulse 60; Resp 26 S; Pulse Ox 100% on R/A; aa5 11:50 BP 86 / 50; Pulse 60; Resp 20 S; Pulse Ox 100% on R/A; aa5 12:00 BP 83 / 71; Pulse 80; Resp 26 S; Pulse Ox 99% ; aa5 12:15 BP 82 / 58; Pulse 80; Resp 24 S; Pulse Ox 99% ; aa5 12:25 BP 87 / 66; Pulse 80; Resp 25 S; Pulse Ox 99% on R/A; aa5 12:30 BP 109 / 72; Pulse 80; Resp 25 S; Pulse Ox 100% on R/A; aa5 12:40 BP 98 / 65; Pulse 80; Resp 27 S; Pulse Ox 100% on R/A; aa5 12:55 BP 101 / 78; Pulse 80; Resp 24 S; Temp 88.6(Ca); Pulse Ox 98% on R/A; aa5 13:05 BP 92 / 63; Pulse 80; Resp 24 S; Pulse Ox 97% on R/A; aa5 13:15 BP 102 / 78; Pulse 80; Resp 24 S; Pulse Ox 99% on R/A; aa5 13:30 BP 106 / 81; Pulse 80; Resp 25 S; Temp 88.8(Ca); Pulse Ox 99% on R/A; aa5 12:00 MAP 76 aa5 12:15 MAP 68 aa5 12:25 MAP 73 aa5 13:05 MAP 73 aa5 Procedures: 10:44 Central Line: the site was prepped with Chlorhexidine, a triple lumen catheter was ms3 inserted, in the left internal jugular vein, in 2 attempts. placement was verified, by CXR, by blood return, the site was dressed with Tegaderm, the patient tolerated the procedure, well. Pacing: Patient was paced with an external pacer Using non-demand mode, Rate set at 60 in beats/min. Current set at 80 milliamps. Capture was noted. MDM: 09:19 Medical Screening Exam initiated ms3 10:48 ED course: Patient and family requesting [facility] as he was recently discharged from [address] 10:55 ED course: Will give 500 mL NS bolus versus 30 ml/kg secondary to concerns for fluid nm3 overload. 11:01 Differential Diagnosis: electrolyte abnormality, volume depletion, Liver failure vs ms3 kidney failure vs heart failure. 11:29 ED course: Discussed case with Dr Fortune at [facility] and he recommends [facility] [place] the Medical center as [facility] does not have capability to perform a liver transplant if needed.. ED course: Discussed transvenous pacer with Dr Kennedy and he recommends transfer and to continue transcutaneous pacing.. 12:05 Data reviewed: vital signs, nurses notes, lab test result(s), EKG, radiologic studies, ms3 and as a result, I will transfer patient to higher level of care. Consideration of Admission/Observation Patient transferred to higher level of care. Management of patient was discussed with the following: Discussed case with Dr Carrion. Would like patient paced at 80 and Dopamine started in addition to Levophed.. I considered the following discharge prescriptions or medication management in the emergency department Medications were administered in the Emergency Department. See MAR. Independent interpretation of the following test(s) in the Emergency Department EKG: See my EKG interpretation above X-Ray: My interpretation is CXR does not reveal pulmonary edema. Historians other than the Patient: EMS: [facility]. Counseling: I had a detailed discussion with the patient and/or guardian regarding the historical points, exam findings, and any diagnostic results supporting the discharge/admit diagnosis, lab results, radiology results, the need to transfer to another facility, for higher level of care. 12:33 ED course: Discussed case with Dr Kinney at [facility] ED and he will accept patient to [facility] the ER. 10/24 09:39 Order name: Glucose, Ancillary Testing; Complete Time: 10:07 EDAZ 10/24 09:56 Order name: Blood Culture Adult (2) 10/24 09:56 Order name: CBC with Diff; Complete Time: 13:40 [facility] 10/24 09:56 Order name: CMP; Complete Time: 10:46 [facility] 10/24 09:56 Order name: Lactate w/ 2H reflex if indic.; Complete Time: 10:50 [facility] 10/24 09:56 Order name: Protime (+inr); Complete Time: 10:46 [facility] 10/24 09:56 Order name: Ptt, Activated; Complete Time: 10:46 [facility] 10/24 09:56 Order name: AMMONIA; Complete Time: 10:33 [facility] 10/24 10:10 Order name: Glucose, Ancillary Testing; Complete Time: 10:14 EDMS 10/24 10:12 Order name: Glucose, Ancillary Testing [facility] 10/24 10:41 Order name: CBC Smear Scan; Complete Time: 13:40 EDAZ 10/24 10:49 Order name: Ghost Lactate-NO COLLECT Timer; Complete Time: 13:40 EDAZ 10/24 10:50 Order name: Type and Screen Tube method; Complete Time: 11:50 [facility] 10/24 10:52 Order name: BNP; Complete Time: 13:40 [facility] 10/24 11:04 Order name: glucometer results - FOR PT WITH NO ID 10/24 12:28 Order name: Glucose Level; Complete Time: 13:40 EDMS 10/24 12:28 Order name: Troponin High Sensitivity; Complete Time: 13:40 EDAZ 10/24 12:28 Order name: Glucose, Ancillary Testing; Complete Time: 13:40 EDAZ 10/24 12:30 Order name: Glucose, Ancillary Testing [facility] 10/24 13:14 Order name: ABO/RH no charge; Complete Time: 13:40 EDAZ 10/24 09:48 Order name: XRAY Chest (1 view); Complete Time: 10:33 ss 05/19 09:56 Order name: EKG; Complete Time: 09:56 10/24 09:56 Order name: Accucheck; Complete Time: 10:08 10/24 09:56 Order name: Cardiac monitoring; Complete Time: 10:08 10/24 09:56 Order name: EKG - Nurse/Tech; Complete Time: 10:08 10/24 09:56 Order name: IV Saline Lock - Large Bore; Complete Time: 10:10/24 09:56 Order name: Labs collected and sent; Complete Time: 10:10/24 09:56 Order name: O2 Per Protocol; Complete Time: 10:08 10/24 09:56 Order name: O2 Sat Monitoring; Complete Time: 10:08 10/24 09:56 Order name: Vital Signs; Complete Time: 10:08 10/24 12:05 Order name: La Nena Fernandez; Complete Time: 12:10 ms3 10/24 13:51 Order name: Foster: VO at 1230; Complete Time: 13:51 EC:15 Rate is 39 beats/min. Rhythm is regular. QRS [place] is Normal. MO interval is normal. QRS ms3 interval is normal. QT interval is prolonged. Clinical impression: 1st degree heart block. Interpreted by me. Reviewed by me. Administered Medications: 10:25 Drug: Norepinephrine IV 0.1 mcg/kg/min IV at calculated rate See Administration aa5 Instructions; (Standard concentration 4 mg / 250 mL D5W); Recommended max rate 3 mcg/kg/min; Titrate 0.05 mcg/kg/min as often as every 5 minutes to achieve goal (see titration policy); Goal parameter MAP greater than 65 mmHg. Route: IV; Rate: calculated rate; Site: left jugular; 10:30 Follow up: Rate change 30 mcg/min; per MD VELIZ aa5 13:55 Follow up: IV Status: Infusion continued upon transfer aa5 10:32 Drug: D5-NS IV 1000 ml IV at 125 ml/hr continuous Route: IV; Rate: 125 ml/hr; Site: aa5 left jugular; 13:55 Follow up: IV Status: Infusion continued upon transfer aa5 10:34 Drug: NS 0.9% IV 500 ml IV at 1000 ml once; to be given as a bolus over 30 minutes aa5 Route: IV; Rate: 1000 ml; Site: left jugular; 11:04 Follow up: IV Status: Completed infusion; IV Intake: 500ml aa5 10:51 CANCELLED (Physician Discretion): [email or web address] grams IV at calculated rate once; Given ms3 slow IV push per pharmacy instructions 10:55 CANCELLED (Physician Discretion): ns 0.9% (30 ml/kg) 30 ml/kg IV at bolus once; Sepsis ms3 Protocol; to be given as a bolus over 90 minutes 11:19 Drug: Piperacillin-Tazobactam IVPB 4.5 grams IVPB once over 60 mins; (mix in 100 mL NS) aa5 Route: IVPB; Infused Over: 60 mins; Site: left jugular; 11:40 Follow up: Response: No adverse reaction aa5 12:19 Follow up: Response: No adverse reaction; IV Status: Completed infusion aa5 11:20 Drug: Calcium Gluconate IVPB 2 grams IVPB once over 60 mins; (mix in NS 100 mL) Route: aa5 IVPB; Infused Over: 60 mins; Site: left jugular; 11:40 Follow up: Response: No adverse reaction aa5 12:20 Follow up: IV Status: Completed infusion aa5 12:10 Drug: DOPamine IV (400mg/250mL Premix) 5 mcg/kg/min IV at calculated rate See bp Administration Instructions; Recommended max rate 20 mcg/kg/min; Titrate 2.5 mcg/kg/min as often as every 5 minutes to achieve goal (see titration policy); Goal parameter MAP greater than 65 mmHg. [*Low doses 1 to 4 mcg/kg/min may result in hypotension, decreased SVR*] Route: IV; Rate: calculated rate; Site: left jugular; 13:55 Follow up: IV Status: Infusion continued upon transfer aa5 Disposition: 13:28 Critical Care:. ms3 17:42 Chart complete. ms3 Disposition Summary: 10/24/24 11:34 Transfer Ordered Notes: Transfer Location: [facility] ms3 Reason: Higher level of care ms3 Condition: Stable ms3 Problem: new ms3 Symptoms: are unchanged ms3 Accepting Physician: Dr Carrion(10/24/24 14:14) aa5 Diagnosis - Liver failure ms3 - Elevated bilirubin ms3 - Hyponatremia ms3 - Hypocalcemia ms3 - Bradycardia, unspecified ms3 - Hypotension, unspecified ms3 - Acute Renal Failure ms3 - Anemia, unspecified ms3 - Elevated INR ms3 Forms: - Medication Reconciliation Form ms3 - SBAR form ms3 Critical care time excluding procedures: 13:28 Critical care time: Bedside Care: 120 minutes, Consultation: 15 minutes, Family ms3 Intervention: 15 minutes. Total time: 150 minutes Signatures: Dispatcher [employer] EDMS Yolanda Rolle, RN RN aa5 Tripp Thomas PA PA [id number] Prince Bolanos, RN RN Ramirez Pop DO DO ms3 Maria L Alanis PA-C PA-C sb4 Corrections: (The following items were deleted from the chart) 09:49 09:49 Chest Single View+RAD.RAD.BRZ ordered. EDMS EDMS 09:49 09:49 Chest Single View+RAD.RAD.BRZ ordered. EDMS EDMS 10:50 09:56 TYPE AND SCREEN+BB.LAB.BRZ ordered. EDMS EDMS 10:51 10:50 Rocephin IV 1 grams IV at calculated rate once; Given slow IV push per pharmacy ms3 instructions ordered. ms3 10:55 10:48 NS 0.9% IV (30 ml/kg) 30 ml/kg IV at bolus once; Sepsis Protocol; to be given as ms3 a bolus over 90 minutes ordered. ms3 10:55 10:55 NS 0.9% IV (30 ml/kg) 30 ml/kg IV at bolus once; Sepsis Protocol; to be given as ms3 a bolus over 90 minutes ordered. ms3 11:07 10:15 Constitutional: The patient appears alert, awake, obviously ill, ms3 ms3 11:35 09:19 Medical Screening Exam initiated sb4 ms3 12:07 11:34 ms3 ms3 12:07 12:06 Co-signature as Attending Physician, Ramirez Todd DO ms3 ms3 12:07 12:07 Dr Carrion ms3 ms3 12:28 10:44 GLUCOSE+C.LAB.BRZ ordered. EDMS EDMS 12:28 11:55 Troponin High Sensitivity+C.LAB.BRZ ordered. EDMS EDMS 14:14 12:07 Dr Carrion ms3 aa5
[2024-10-24 12:27] LABS: Agglutinates, Cold (RBC Morph) NOTED; Blood Morphology Comment NOTED (NOT SEEN); Platelet Estimate ADEQ; Platelets Clumped NOTED; White Blood Cell Scan OK (OK)
[2024-10-24 12:50] LABS: Troponin High Sensitivity 13.9 pg/mL (<58.9)
[2024-10-24 14:56] VITALS: O2SAT 99
[2024-10-24 14:58] VITALS: BP 106/81; TEMP 88.8
== END 2024-10-24 14:14 | disposition short-term general hospital (02) ==
LOC: ER 09:15
DX: K72.90 Hepatic failure, unspecified without coma (principal); N17.9 Acute kidney failure, unspecified; D64.9 Anemia, unspecified; I95.9 Hypotension, unspecified; E87.1 Hypo-osmolality and hyponatremia; E83.51 Hypocalcemia; E80.7 Disorder of bilirubin metabolism, unspecified; R00.1 Bradycardia, unspecified; R79.1 Abnormal coagulation profile; K70.30 Alcoholic cirrhosis of liver without ascites; E11.9 Type 2 diabetes mellitus without complications; I10 Essential (primary) hypertension; Z86.73 Personal history of transient ischemic attack (TIA), and cerebral infarction without residual deficits
CPT/HCPCS: 96365; 96367; 93005; 87040 ×2; 85025; 36415; 82140; 86900; 86850; 82947 ×5; 85610; 86901; 83605; 85730; 84484; 80053; 83880; 71045; 51702; 92953; 99291; 36556; J0612; J7042; J7030